=== PATIENT | male | born 1950 | race Caucasian/White ===

== ENCOUNTER 2017-09-30 15:49 | Inpatient (IN) | payer MEDICARE ==
[2017-09-30] MEDS ORDERED: SODIUM CHLORIDE 0.9% 500 ML IV STA (16:21)
[2017-09-30 16:37] LABS: Basophils # (A) 0.1 k/uL (0-0.2); Basophils % (A) 1 %; Eosinophils # (A) 0.4 k/uL (0-0.7); Eosinophils % (A) 5 %; HCT 39.3 % (39.0-53.0); Lymphocytes # (A) 1.9 k/uL (1.0-4.8); Lymphocytes % (A) 27 %; MCH 29.9 pg (25.0-35.0); MCV 90.6 fL (80.0-100.0); Monocytes # (A) 0.4 k/uL (0-1.0); Monocytes % (A) 6 %; Neutrophils # (A) 4.1 k/uL (1.3-7.7); Neutrophils % (A) 59 %; Platelet Count 151 k/uL (150-450); RBC 4.34 m/uL (4.30-5.90); RDW 14.3 % (11.5-15.5)
[2017-09-30 16:45] LABS: INR 1.1 (<1.2)
[2017-09-30 16:46] LABS: ALT 58 U/L (21-72); AST 33 U/L (17-59); Alkaline Phosphatase 53 U/L (38-126); Anion Gap 12 mmol/L; Blood Urea Nitrogen 24 mg/dL (9-20); Calcium 9.8 mg/dL (8.4-10.2); Carbon Dioxide 26 mmol/L (22-30); Chloride 100 mmol/L (98-107); Glucose 157 mg/dL (74-99); Magnesium 1.2 mg/dL (1.6-2.3); Potassium 4.1 mmol/L (3.5-5.1); Sodium 138 mmol/L (137-145); Total Bilirubin 0.5 mg/dL (0.2-1.3); Total Protein 6.1 g/dL (6.3-8.2)
--- NOTE | 2017-09-30 16:49 | XR ---
EXAMINATION TYPE: XR chest 2V DATE OF EXAM: 09/30/2017 COMPARISON: NONE HISTORY: Dizziness TECHNIQUE: Frontal and lateral views of the chest are obtained. FINDINGS: Heart and mediastinum are normal. Lungs are clear. Diaphragm is normal. There is left axil krishna pacemaker with the lead tip in the right ventricle. There are chest leads. Bony thorax is intact . IMPRESSION: No active cardiopulmonary disease.
--- NOTE | 2017-09-30 16:50 | ED ---
General Adult HPI - General Chief complaint: Syncope Stated complaint: Hypotensive Time Seen by Provider: 09/30/17 16:03 Source: patient, EMS, RN notes reviewed Mode of arrival: EMS Limitations: no limitations - History of Present Illness Initial comments: 66-year-old male with history of diabetes and nonischemic cardiomyopathy presents with near syncopal episode. Patient states he had some mild lower abdominal pain and cramping, went to the bathroom, became very lightheaded and dizzy, laid down in bed had a cold sweat, had some vision changes. Patient's blood pressure would not read at home, his took a blood sugar which was normal. They called EMS, when EMS arrived blood pressure was 80 systolic. Patient was pale and diaphoretic. Patient states that approximately one week ago his primary care physician reduced his Coreg dose secondary to low blood pressure. He states his normal blood pressure is around 100 systolic, he was in the 80 systolic time his medication was lowered. Denies any chest pain. States he has some mild shortness of breath which is at baseline for him. Denies any lower tremor swelling. Denies any vomiting, one episode of diarrhea. - Related Data Home Medications Medication Instructions Recorded Confirmed Allopurinol [Zyloprim] 300 mg PO DAILY 09/30/17 09/30/17 Ascorbic Acid [Vitamin C] 500 mg PO DAILY 09/30/17 09/30/17 Aspirin 81 mg PO DAILY 09/30/17 09/30/17 Carvedilol [Coreg] 6.25 mg PO BID 09/30/17 09/30/17 Cyanocobalamin (Vitamin B-12) 1,000 mcg PO DAILY 09/30/17 09/30/17 [Vitamin B-12] Digoxin [Digitek] 125 mcg PO DAILY 09/30/17 09/30/17 Furosemide [Lasix] 20 mg PO DAILY 09/30/17 09/30/17 Insulin Detemir [Levemir Flextouch] 38 units SQ HS 09/30/17 09/30/17 Lisinopril [Zestril] 10 mg PO BID 09/30/17 09/30/17 Lysine [l-Lysine] 500 mg PO DAILY 09/30/17 09/30/17 Multivitamins, Thera [Multivitamin 1 tab PO DAILY 09/30/17 09/30/17 (formulary)] [place]-3S/Dha/Epa/Fish Oil [Fish 1 cap PO DAILY 09/30/17 09/30/17 Oil 1,000 mg Softgel] Sildenafil Citrate [Viagra] 100 mg PO ONCE PRN 09/30/17 09/30/17 Spironolactone [Aldactone] 25 mg PO DAILY 09/30/17 09/30/17 Turmeric Root Extract [Turmeric] 500 mg PO DAILY 09/30/17 09/30/17 metFORMIN HCL [Glucophage] 1,000 mg PO BID 09/30/17 09/30/17 Allergies Allergy/AdvReac Type Severity Reaction Status Date / Time Mbfnvfm-Cye-Jno Reductase AdvReac Unknown Verified 09/30/17 16:30 Inhibitor Review of Systems ROS Statement: Those systems with pertinent positive or pertinent negative responses have been documented in the HPI. ROS Other: All systems not noted in ROS Statement are negative. Past Medical History Past Medical History: Atrial Fibrillation, Diabetes Mellitus, Osteoarthritis (OA ) Additional Past Medical History / Comment(s): CARDIOMYOPATHY, GOUT, DEFIB History of Any Multi-Drug Resistant Organisms: None Reported Past Surgical History: Heart Catheterization, Orthopedic Surgery Additional Past Surgical History / Comment(s): LEFT ANKLE, LEFT WRIST, DEFIB PLACEMENT Past Psychological History: No Psychological Hx Reported Smoking Status: Current some day smoker Past Alcohol Use History: Occasional Past Drug Use History: None Reported General Exam Limitations: no limitations General appearance: alert, in no apparent distress Head exam: Present: atraumatic, normocephalic Eye exam: Present: normal appearance, PERRL ENT exam: Present: normal exam Neck exam: Present: normal inspection. Absent: tenderness, meningismus Respiratory exam: Present: normal lung sounds bilaterally. Absent: respiratory distress Cardiovascular Exam: Present: regular rate, normal rhythm GI/Abdominal exam: Present: soft. Absent: distended, tenderness Extremities exam: Present: normal inspection, normal capillary refill. Absent: pedal edema, calf tenderness Neurological exam: Present: alert, oriented X3, CN II-XII intact. Absent: motor sensory deficit Psychiatric exam: Present: normal affect, normal mood Skin exam: Present: warm, dry, intact. Absent: cyanosis, diaphoretic Course Vital Signs 09/30/17 09/30/17 09/30/17 15:58 16:29 16:31 Temperature 97.6 F Pulse Rate 72 66 Pulse Rate [ 69 Preschool Assistant ] Respiratory 18 18 Rate Blood Pressure 99/50 94/54 O2 Sat by Pulse 96 98 Oximetry EKG Findings - EKG Comments: EKG Findings:: EKG shows sinus rhythm with first-degree AV block, T-wave inversion in leads II, III, and F aVF as well as the lateral precordial leads. No ST segment elevation or depression. Ventricular rate 65, KS interval 276, QRS 104, QTC 45, no old EKG for comparison Medical Decision Making - Medical Decision Making 66-year-old male presenting with near syncopal episode. Patient does have nonischemic cardiomyopathy, he has a defibrillator. There was no definitive relator firing. Patient is asymptomatic while in the emergency department. EKG does show T-wave abnormalities, no previous EKG for comparison. Chest x- ray shows no acute findings. White blood cell count normal, hemoglobin stable 13, magnesium is low at 1.2, this is replaced, all other electrolytes are within normal limits. Troponin negative. Patient will be observed for telemetry, magnesium replacement, and cardiology evaluation. - Lab Data Result diagrams: 09/30/17 16:08 09/30/17 16:08 Lab Results 09/30/17 09/30/17 09/30/17 Range/Units 16:08 16:08 16:08 WBC 7.0 (3.8-10.6) k/uL RBC 4.34 (4.30-5.90) m/uL Hgb 13.0 (13.0-17.5) gm/dL Hct 39.3 (39.0-53.0) % MCV 90.6 (80.0-100.0) fL MCH 29.9 (25.0-35.0) pg MCHC 33.0 (31.0-37.0) g/dL RDW 14.3 (11.5-15.5) % Plt Count 151 (150-450) k/uL Neutrophils % 59 % Lymphocytes % 27 % Monocytes % 6 % Eosinophils % 5 % Basophils % 1 % Neutrophils # 4.1 (1.3-7.7) k/uL Lymphocytes # 1.9 (1.0-4.8) k/uL Monocytes # 0.4 (0-1.0) k/uL Eosinophils # 0.4 (0-0.7) k/uL Basophils # 0.1 (0-0.2) k/uL PT (9.0-12.0) sec INR (<1.2) APTT (22.0-30.0) sec Sodium 138 (137-145) mmol/L Potassium 4.1 (3.5-5.1) mmol/L Chloride 100 (98-107) mmol/L Carbon Dioxide 26 (22-30) mmol/L Anion Gap 12 mmol/L BUN 24 H (9-20) mg/dL Creatinine 0.95 (0.66-1.25) mg/dL Est GFR (MDRD) Af Amer >60 (>60 ml/min/1.73 sqM) Est GFR (MDRD) Non-Af >60 (>60 ml/min/1.73 sqM) Glucose 157 H (74-99) mg/dL Calcium 9.8 (8.4-10.2) mg/dL Magnesium 1.2 L (1.6-2.3) mg/dL Total Bilirubin 0.5 (0.2-1.3) mg/dL AST 33 (17-59) U/L ALT 58 (21-72) U/L Alkaline Phosphatase 53 (38-126) U/L Total Creatine Kinase 194 H (55-170) U/L CK-MB (CK-2) 1.8 (0.0-2.4) ng/mL CK-MB (CK-2) Rel Index 0.9 Troponin I <0.012 (0.000-0.034) ng/mL Total Protein 6.1 L (6.3-8.2) g/dL Albumin 4.0 (3.5-5.0) g/dL Urine Color Urine Appearance (Clear) Urine pH (5.0-8.0) Ur Specific [place] (1.001-1.035) Urine Protein (Negative) Urine Glucose (UA) (Negative) Urine Ketones (Negative) Urine Blood (Negative) Urine Nitrite (Negative) Urine Bilirubin (Negative) Urine Urobilinogen (<2.0) mg/dL Ur Leukocyte Esterase (Negative) 09/30/17 09/30/17 Range/Units 16:08 17:00 WBC (3.8-10.6) k/uL RBC (4.30-5.90) m/uL Hgb (13.0-17.5) gm/dL Hct (39.0-53.0) % MCV (80.0-100.0) fL MCH (25.0-35.0) pg MCHC (31.0-37.0) g/dL RDW (11.5-15.5) % Plt Count (150-450) k/uL Neutrophils % % Lymphocytes % % Monocytes % % Eosinophils % % Basophils % % Neutrophils # (1.3-7.7) k/uL Lymphocytes # (1.0-4.8) k/uL Monocytes # (0-1.0) k/uL Eosinophils # (0-0.7) k/uL Basophils # (0-0.2) k/uL PT 11.0 (9.0-12.0) sec INR 1.1 (<1.2) APTT 21.2 L (22.0-30.0) sec Sodium (137-145) mmol/L Potassium (3.5-5.1) mmol/L Chloride (98-107) mmol/L Carbon Dioxide (22-30) mmol/L Anion Gap mmol/L BUN (9-20) mg/dL Creatinine (0.66-1.25) mg/dL Est GFR (MDRD) Af Amer (>60 ml/min/1.73 sqM) Est GFR (MDRD) Non-Af (>60 ml/min/1.73 sqM) Glucose (74-99) mg/dL Calcium (8.4-10.2) mg/dL Magnesium (1.6-2.3) mg/dL Total Bilirubin (0.2-1.3) mg/dL AST (17-59) U/L ALT (21-72) U/L Alkaline Phosphatase (38-126) U/L Total Creatine Kinase (55-170) U/L CK-MB (CK-2) (0.0-2.4) ng/mL CK-MB (CK-2) Rel Index Troponin I (0.000-0.034) ng/mL Total Protein (6.3-8.2) g/dL Albumin (3.5-5.0) g/dL Urine Color Yellow Urine Appearance Clear (Clear) Urine pH 5.0 (5.0-8.0) Ur Specific [place] 1.010 (1.001-1.035) Urine Protein Trace H (Negative) Urine Glucose (UA) Negative (Negative) Urine Ketones Negative (Negative) Urine Blood Negative (Negative) Urine Nitrite Negative (Negative) Urine Bilirubin Negative (Negative) Urine Urobilinogen <2.0 (<2.0) mg/dL Ur Leukocyte Esterase Negative (Negative) Disposition Clinical Impression: Syncope, Hypomagnesemia, Nonischemic cardiomyopathy Disposition: ADMITTED IP TO THIS [facility] Condition: Stable Referrals: Km Hawthorne DO [Primary Care Provider] - 1-2 days Decision to Admit Reason: Admit from EC Decision Date: 09/30/17 Decision Time: 17:41
[2017-09-30 16:51] LABS: Partial Thromboplastin Time 21.2 sec (22.0-30.0)
[2017-09-30 16:58] LABS: Creatine Kinase 194 U/L (55-170)
[2017-09-30 17:09] LABS: Appearance,Urine Clear (Clear); Bilirubin,Urine Negative (Negative); Blood,Urine Negative (Negative); Color,Urine Yellow; Glucose,Urine (UA) Negative (Negative); Ketones,Urine Negative (Negative); Leukocyte Esterase,Urine Negative (Negative); Nitrite,Urine Negative (Negative); Protein,Urine Trace (Negative); Urobilinogen,Urine <2.0 mg/dL (<2.0)
[2017-09-30 17:11] LABS: Creatine Kinase MB 1.8 ng/mL (0.0-2.4); Troponin I <0.012 ng/mL (0.000-0.034)
[2017-09-30] MEDS ORDERED: ONDANSETRON 4 MG/2 ML VIAL IVP PRN (17:42)
[2017-09-30] MEDS ORDERED: NALOXONE 0.4 MG/ML 1 ML VIAL IV PRN (17:42)
[2017-09-30] MEDS ORDERED: ACETAMINOPHEN TAB 325 MG TAB PO PRN (17:42)
[2017-09-30] MEDS ORDERED: SODIUM CHLORIDE 0.9% 1,000 ML IV SCH (17:45)
[2017-09-30] MEDS: MAGNESIUM SULFATE-D5W PMX 1 GM in DEXTROSE/WATER 1 100ML.BAG IVPB SCH ×2 (18:35→23:37)
[2017-09-30] MEDS ORDERED: INSULIN DETEMIR 100 UNIT/ML 10 ML VIAL SQ SCH (22:00)
[2017-09-30 22:44] VITALS: BMI 26.2
[2017-09-30 23:49] LABS: Glucose,Whole Blood 253 mg/dL (75-99)
[2017-09-30] MEDS: ALLOPURINOL 300 MG TAB PO SCH (23:51)
[2017-09-30] MEDS: metFORMIN 500 MG TAB PO SCH (23:51)
[2017-09-30] MEDS: CARVEDILOL 12.5 MG TAB PO SCH (23:51)
[2017-09-30] MEDS: LISINOPRIL 10 MG TAB PO SCH (23:51)
[2017-10-01 06:17] LABS: Glucose,Whole Blood 108 mg/dL (75-99)
[2017-10-01 06:30] LABS: Basophils % (A) 1 %; Eosinophils # (A) 0.3 k/uL (0-0.7); Eosinophils % (A) 5 %; HCT 38.7 % (39.0-53.0); HGB 12.7 gm/dL (13.0-17.5); Lymphocytes # (A) 2.5 k/uL (1.0-4.8); Lymphocytes % (A) 34 %; MCH 29.5 pg (25.0-35.0); MCHC 32.7 g/dL (31.0-37.0); MCV 90.1 fL (80.0-100.0); Monocytes # (A) 0.5 k/uL (0-1.0); Monocytes % (A) 6 %; Neutrophils % (A) 53 %; Platelet Count 145 k/uL (150-450); RBC 4.29 m/uL (4.30-5.90); RDW 14.6 % (11.5-15.5); WBC 7.4 k/uL (3.8-10.6)
[2017-10-01] MEDS: INSULIN ASPART 100 UNIT/ML 1 ML 10 ML VIAL SQ SCH ×2 (06:31→12:18)
[2017-10-01 06:41] LABS: ALT 58 U/L (21-72); AST 29 U/L (17-59); Albumin 4.1 g/dL (3.5-5.0); Alkaline Phosphatase 49 U/L (38-126); Anion Gap 10 mmol/L; Blood Urea Nitrogen 24 mg/dL (9-20); Carbon Dioxide 30 mmol/L (22-30); Chloride 100 mmol/L (98-107); Glucose 110 mg/dL (74-99); Magnesium 1.6 mg/dL (1.6-2.3); Sodium 140 mmol/L (137-145); Total Bilirubin 0.7 mg/dL (0.2-1.3); Total Protein 6.2 g/dL (6.3-8.2)
[2017-10-01 07:43] VITALS: RESP 16
[2017-10-01] MEDS ORDERED: ASPIRIN 81 MG PO SCH (09:00)
[2017-10-01] MEDS ORDERED: SPIRONOLACTONE 25 MG TAB PO SCH (09:00)
[2017-10-01] MEDS ORDERED: FUROSEMIDE 20 MG TAB PO SCH (09:00)
[2017-10-01] MEDS ORDERED: DIGOXIN 125 MCG TAB PO SCH (09:00)
[2017-10-01] MEDS: ALLOPURINOL 300 MG TAB PO SCH (09:39)
[2017-10-01] MEDS: CARVEDILOL 12.5 MG TAB PO SCH (09:40)
[2017-10-01] MEDS: metFORMIN 500 MG TAB PO SCH (09:44)
--- NOTE | 2017-10-01 09:44 | P.CRDCN ---
History of Present Illness Consult date: 10/01/17 Requesting physician: Beverley Gay Consult reason: sycope Chief complaint: Near syncope History of present illness: This is a 66-year-old gentleman with history of dilated cardiomyopathy status post AICD, diabetes, hyperlipidemia, who follows with Dr. Zoraida Ontiveros at [facility]. Patient does occasionally smoke, rarely drinks alcohol, but states he used to drink alcohol heavily past. He presents to the hospital with a near syncopal episode. According to the patient, he became dizzy, but clearly went to the bathroom where he had a loose bowel movement, became extremely diaphoretic and his dizziness worsened. He went to lie down on his bed and EMS was called. On EMS arrival the patient's blood pressure was 85/45, heart rate in the 60s. According to the patient, recently his blood pressure has been running quite low, his primary care physician recently decreased his Coreg in half. She was given a 250 mL fluid bolus in the EMS as well. EKG on arrival here showed a normal sinus rhythm with T-wave inversion in the anterior lateral leads. Chest2 x-ray did not reveal any acute cardiopulmonary process. Blood pressure on arrival here 99/50, heart rate in the 70s, 96% on room air. Blood pressure this morning 103/58, heart rate in the 70s. Laboratory data was reviewed,, WBC 7.4, hemoglobin 12.7, platelet count 145. D-dimer 0.35. Sodium 140, potassium 5.0, BUN 24, creatinine 1.0. Magnesium level I.2 on admission, 1.6 this morning. At the time of my examination this morning, patient feels much better, he states he's been up a couple of times and has had further symptoms of dizziness. Past Medical History Past Medical History: Atrial Fibrillation, Diabetes Mellitus, Osteoarthritis (OA ) Additional Past Medical History / Comment(s): CARDIOMYOPATHY, GOUT, DEFIB History of Any Multi-Drug Resistant Organisms: None Reported Past Surgical History: Heart Catheterization, Orthopedic Surgery Additional Past Surgical History / Comment(s): LEFT ANKLE, LEFT WRIST, DEFIB PLACEMENT Past Psychological History: No Psychological Hx Reported Smoking Status: Light tobacco smoker Past Alcohol Use History: Occasional Past Drug Use History: None Reported Medications and Allergies Home Medications Medication Instructions Recorded Confirmed Type Allopurinol [Zyloprim] 300 mg PO DAILY 09/30/17 09/30/17 History Ascorbic Acid [Vitamin C] 500 mg PO DAILY 09/30/17 09/30/17 History Aspirin 81 mg PO DAILY 09/30/17 09/30/17 History Carvedilol [Coreg] 6.25 mg PO BID 09/30/17 09/30/17 History Cyanocobalamin (Vitamin B-12) 1,000 mcg PO DAILY 09/30/17 09/30/17 History [Vitamin B-12] Digoxin [Digitek] 125 mcg PO DAILY 09/30/17 09/30/17 History Furosemide [Lasix] 20 mg PO DAILY 09/30/17 09/30/17 History Insulin Detemir [Levemir Flextouch] 38 units SQ HS 09/30/17 09/30/17 History Lisinopril [Zestril] 10 mg PO BID 09/30/17 09/30/17 History Lysine [l-Lysine] 500 mg PO DAILY 09/30/17 09/30/17 History Multivitamins, Thera [Multivitamin 1 tab PO DAILY 09/30/17 09/30/17 History (formulary)] [place]-3S/Dha/Epa/Fish Oil [Fish 1 cap PO DAILY 09/30/17 09/30/17 History Oil 1,000 mg Softgel] Sildenafil Citrate [Viagra] 100 mg PO ONCE PRN 09/30/17 09/30/17 History Spironolactone [Aldactone] 25 mg PO DAILY 09/30/17 09/30/17 History Turmeric Root Extract [Turmeric] 500 mg PO DAILY 09/30/17 09/30/17 History metFORMIN HCL [Glucophage] 1,000 mg PO BID 09/30/17 09/30/17 History Allergies Allergy/AdvReac Type Severity Reaction Status Date / Time Vcvmslo-Rsa-Vsa Reductase AdvReac Unknown Verified 09/30/17 16:30 Inhibitor Physical Exam Vitals: Vital Signs Temp Pulse Pulse Pulse Resp BP BP 10/01/17 08:00 72 78 16 10/01/17 07:25 96.6 F L 78 16 103/58 10/01/17 04:00 97.0 F L 66 18 98/53 10/01/17 00:00 96.4 F L 71 20 102/55 09/30/17 19:06 98.6 F 72 16 99/61 09/30/17 18:35 97.0 F L 75 18 101/60 09/30/17 16:31 69 09/30/17 16:29 66 18 94/54 09/30/17 15:58 97.6 F 72 18 99/50 Pulse Ox 10/01/17 08:00 10/01/17 07:25 96 10/01/17 04:00 96 10/01/17 00:00 96 09/30/17 19:06 96 09/30/17 18:35 97 09/30/17 16:31 09/30/17 16:29 98 09/30/17 15:58 96 Intake and Output 09/30/17 10/01/17 10/01/17 22:59 06:59 14:59 Intake Total 280 360 354 Output Total 1 Balance 280 359 354 Intake: IV 200 Invasive Line 1 200 Intake, IV Titration 40 160 Amount Sodium Chloride 0.9% 1, 40 160 000 ml @ 20 mls/hr IV . Q24H [facility] Rx#:[id number] Oral 240 354 Output: Urine 1 Other: Voiding Method Toilet Toilet # Voids 1 Weight 97.5 kg 94.9 kg PHYSICAL EXAMINATION: HEENT: Head is atraumatic, normocephalic. Pupils equal, round. Neck is supple. There is no elevated jugular venous pressure. HEART EXAMINATION: Heart S1, S2 normal. No murmur or gallop heard. CHEST EXAMINATION: Lungs are clear to auscultation and precussion. No chest wall tenderness is noted on palpation or with deep breathing. ABDOMEN: Soft, nontender. Bowel sounds are heard. No organomegaly noted. EXTREMITIES: 2+ peripheral pulses with no evidence of peripheral edema and no calf tenderness noted. NEUROLOGIC patient is awake, alert and oriented -3. . Results 10/01/17 05:48 10/01/17 05:48 Cardiac Enzymes 09/30/17 09/30/17 10/01/17 Range/Units 16:08 16:08 05:48 AST 33 29 (17-59) U/L CK-MB (CK-2) 1.8 (0.0-2.4) ng/mL Troponin I <0.012 (0.000-0.034) ng/mL Coagulation 09/30/17 Range/Units 16:08 PT 11.0 (9.0-12.0) sec APTT 21.2 L (22.0-30.0) sec CBC 09/30/17 10/01/17 Range/Units 16:08 05:48 WBC 7.0 7.4 (3.8-10.6) k/uL RBC 4.34 4.29 L (4.30-5.90) m/uL Hgb 13.0 12.7 L (13.0-17.5) gm/dL Hct 39.3 38.7 L (39.0-53.0) % Plt Count 151 145 L (150-450) k/uL Comprehensive Metabolic Panel 09/30/17 10/01/17 Range/Units 16:08 05:48 Sodium 138 140 (137-145) mmol/L Potassium 4.1 5.0 (3.5-5.1) mmol/L Chloride 100 100 (98-107) mmol/L Carbon Dioxide 26 30 (22-30) mmol/L BUN 24 H 24 H (9-20) mg/dL Creatinine 0.95 1.00 (0.66-1.25) mg/dL Glucose 157 H 110 H (74-99) mg/dL Calcium 9.8 10.0 (8.4-10.2) mg/dL AST 33 29 (17-59) U/L ALT 58 58 (21-72) U/L Alkaline Phosphatase 53 49 (38-126) U/L Total Protein 6.1 L 6.2 L (6.3-8.2) g/dL Albumin 4.0 4.1 (3.5-5.0) g/dL Current Medications Generic Name Dose Route Start Last Admin Trade Name Freq PRN Reason Stop Dose Admin Acetaminophen 650 mg 09/30/17 17:42 Tylenol Tab PO Q6HR PRN Mild Pain or Fever > 100.5 Allopurinol 300 mg 09/30/17 22:00 09/30/17 23:51 Zyloprim PO 300 mg DAILY MECCA Administration Aspirin 81 mg 10/01/17 09:00 Aspirin PO DAILY MECCA Carvedilol 6.25 mg 09/30/17 22:00 09/30/17 23:51 Coreg PO 6.25 mg BID MECCA Administration Digoxin 125 mcg 10/01/17 09:00 Lanoxin PO DAILY MECCA Furosemide 20 mg 10/01/17 09:00 Lasix PO DAILY MECCA Sodium Chloride 1,000 mls @ 20 mls/hr 09/30/17 17:45 09/30/17 18:35 Saline 0.9% IV 20 mls/hr .Q24H MECCA Administration Insulin Aspart 0 unit 10/01/17 07:30 10/01/17 06:31 Novolog SQ Not Given ACHS MECCA Protocol Insulin Detemir 38 unit 09/30/17 22:00 10/01/17 00:00 Levemir SQ 38 unit HS MECAC Administration Lisinopril 10 mg 09/30/17 22:00 09/30/17 23:51 Zestril PO 10 mg BID MECCA Administration Metformin HCl 1,000 mg 09/30/17 22:00 09/30/17 23:51 Glucophage PO 1,000 mg BID MECCA Administration Naloxone HCl 0.2 mg 09/30/17 17:42 Narcan IV Q2M PRN Opioid Reversal Ondansetron HCl 4 mg 09/30/17 17:42 Zofran IVP Q8HR PRN Nausea And Vomiting Spironolactone 12.5 mg 10/01/17 09:00 Aldactone PO DAILY MECCA Intake and Output 09/30/17 10/01/17 10/01/17 22:59 06:59 14:59 Intake Total 280 360 354 Output Total 1 Balance 280 359 354 Intake: IV 200 Invasive Line 1 200 Intake, IV Titration 40 160 Amount Sodium Chloride 0.9% 1, 40 160 000 ml @ 20 mls/hr IV . Q24H ME[facility] Rx#:[id number] Oral 240 354 Output: Urine 1 Other: Voiding Method Toilet Toilet # Voids 1 Weight 97.5 kg 94.9 kg 10/01/17 05:48 10/01/17 05:48 EKG Interpretations (text) EKG shows normal sinus rhythm with first-degree AV block and inferior lateral T- wave inversion Assessment and Plan Plan: Assessment and plan #1 symptoms of dizziness, diaphoresis and near syncope. Could be secondary to hypotension. Blood pressure on EMS arrival 80/50. #2 nonischemic cardiomyopathy with prior AICD implantation #3 nicotine dependence #4 hypomagnesemia #5 diabetes #6 hyperlipidemia Plan We will obtain records from [facility]. In an echocardiogram with Doppler study. Check orthostatic blood pressure and heart rate every shift. Replace magnesium. Decrease lisinopril to 10 mg daily. Further recommendations to follow. DNP note has been reviewed, I agree with a documented findings and plan of care. Patient was seen and examined.
[2017-10-01] MEDS: LISINOPRIL 10 MG TAB PO SCH (09:59)
[2017-10-01] MEDS ORDERED: LISINOPRIL 10 MG TAB PO SCH (10:00)
--- NOTE | 2017-10-01 10:28 | ECHOF ---
Referral Reason:Cardiomyopathy MEASUREMENTS -------- HEIGHT: 162.6 cm WEIGHT: 94.8 kg BP: 102/55 IVSd: 1.3 cm (0.6 - 1.1) LVIDd: 6.0 cm (3.9 - 5.3) LVPWd: 1.2 cm (0.6 - 1.1) IVSs: 1.9 cm LVIDs: 5.3 cm LVPWs: 1.1 cm LAESV Index (A-L): 26.83 ml/m Ao Diam: 3.9 cm (2.0 - 3.7) AV Cusp: 1.5 cm (1.5 - 2.6) LA Diam: 2.7 cm (2.7 - 3.8) MV EXCURSION: 17.701 mm (> 18.000) MV EF SLOPE: 84 mm/s (70 - 150) EPSS: 1.7 cm MV E Alvin: 0.92 m/s MV DecT: 131 ms MV A Alvin: 0.77 m/s MV E/A Ratio: 1.20 RAP: 5.00 mmHg RVSP: 16.90 mmHg FINDINGS -------- Sinus rhythm. AICD This was a technically good study. The left ventricle is moderately dilated. There is borderline concentric left ventricular hypertrop hy. There is severe global hypokinesis of LV . Overall left ventricular systolic function is juana rely impaired with, an EF between 20 - 25 %. Known cardiomyopathy Inferior Hypokinesis The right ventricle is normal in size and function. The left atrium is normal in size. The right atrium is normal in size. Aortic valve is trileaflet and is mildly thickened. Mild mitral regurgitation is present. Trace tricuspid regurgitation present. The right ventricular systolic pressure, as measured by Dopp ler, is 16.90mmHg. Pulmonic valve appears structurally normal. The aortic root is mildy dilated. Normal inferior vena cava with normal inspiratory collapse consistent with estimated right atrial pre ssure of 5 mmHg. The pericardium is normal. CONCLUSIONS -------- 1. Sinus rhythm. 2. AICD 3. This was a technically good study. 4. The left ventricle is moderately dilated. 5. There is borderline concentric left ventricular hypertrophy. 6. There is severe global hypokinesis of LV . 7. Overall left ventricular systolic function is severely impaired with, an EF between 20 - 25 %. 8. Known cardiomyopathy 9. Inferior Hypokinesis 10. The right ventricle is normal in size and function. 11. The left atrium is normal in size. 12. The right atrium is normal in size. 13. Aortic valve is trileaflet and is mildly thickened. 14. Mild mitral regurgitation is present. 15. Trace tricuspid regurgitation present. 16. The right ventricular systolic pressure, as measured by Doppler, is 16.90mmHg. 17. Pulmonic valve appears structurally normal. 18. The aortic root is mildy dilated. 19. Normal inferior vena cava with normal inspiratory collapse consistent with estimated right atrial pressure of 5 mmHg. 20. The pericardium is normal. POWDER WORKER: Raven Man RDCS
[2017-10-01] MEDS: MAGNESIUM SULFATE-D5W PMX 1 GM in DEXTROSE/WATER 1 100ML.BAG IVPB SCH ×2 (10:50→12:18)
[2017-10-01 11:02] VITALS: PULSE 74; TEMP 97.1
[2017-10-01 11:10] VITALS: BP 109/61
[2017-10-01 11:39] LABS: Glucose,Whole Blood 155 mg/dL (75-99)
--- NOTE | 2017-10-01 12:35 | P.HPIM ---
History of Present Illness This is a 66-year-old gentleman with history of dilated cardiomyopathy status post AICD, diabetes, hyperlipidemia, who follows with Dr. Zoraida Ontiveros at [facility]. Patient does occasionally smoke, rarely drinks alcohol, but states he used to drink alcohol heavily past. He presents to the hospital with a near syncopal episode. According to the patient, he became dizzy, but clearly went to the bathroom where he had a loose bowel movement, became extremely diaphoretic and his dizziness worsened. He went to lie down on his bed and EMS was called. On EMS arrival the patient's blood pressure was 85/45, heart rate in the 60s. According to the patient, recently his blood pressure has been running quite low, his primary care physician recently decreased his Coreg in half. She was given a 250 mL fluid bolus in the EMS as well. EKG on arrival here showed a normal sinus rhythm with T-wave inversion in the anterior lateral leads. Chest2 x-ray did not reveal any acute cardiopulmonary process. Blood pressure on arrival here 99/50, heart rate in the 70s, 96% on room air. His blood pressures initially improved with IV fluids and lisinopril dose was increased from 10 twice a day to 10 mg daily. If patient is cleared from cardiology perspective patient will be discharged patient is euvolemic at this point of time Review of Systems REVIEW OF SYSTEMS: CONSTITUTIONAL: No fever, no malaise, no fatigue. HEENT: No recent visual problems or hearing problems. Denied any sore throat. CARDIOVASCULAR: No chest pain, orthopnea, PND, no palpitations, no syncope. PULMONARY: No shortness of breath, no cough, no hemoptysis. GASTROINTESTINAL: No diarrhea, no nausea, no vomiting, no abdominal pain. Normoactive bowel sounds. NEUROLOGICAL: No headaches, no weakness, no numbness. HEMATOLOGICAL: Denies any bleeding or petechiae. GENITOURINARY: Denies any burning micturition, frequency, or urgency. MUSCULOSKELETAL/RHEUMATOLOGICAL: Denies any joint pain, swelling, or any muscle pain. ENDOCRINE: Denies any polyuria or polydipsia. The rest of the 14-point review of systems is negative. Past Medical History Past Medical History: Atrial Fibrillation, Diabetes Mellitus, Osteoarthritis (OA ) Additional Past Medical History / Comment(s): CARDIOMYOPATHY, GOUT, DEFIB History of Any Multi-Drug Resistant Organisms: None Reported Past Surgical History: Heart Catheterization, Orthopedic Surgery Additional Past Surgical History / Comment(s): LEFT ANKLE, LEFT WRIST, DEFIB PLACEMENT Past Psychological History: No Psychological Hx Reported Smoking Status: Light tobacco smoker Past Alcohol Use History: Occasional Past Drug Use History: None Reported Medications and Allergies Home Medications Medication Instructions Recorded Confirmed Type Allopurinol [Zyloprim] 300 mg PO DAILY 09/30/17 09/30/17 History Ascorbic Acid [Vitamin C] 500 mg PO DAILY 09/30/17 09/30/17 History Aspirin 81 mg PO DAILY 09/30/17 09/30/17 History Carvedilol [Coreg] 6.25 mg PO BID 09/30/17 09/30/17 History Cyanocobalamin (Vitamin B-12) 1,000 mcg PO DAILY 09/30/17 09/30/17 History [Vitamin B-12] Digoxin [Digitek] 125 mcg PO DAILY 09/30/17 09/30/17 History Furosemide [Lasix] 20 mg PO DAILY 09/30/17 09/30/17 History Insulin Detemir [Levemir Flextouch] 38 units SQ HS 09/30/17 09/30/17 History Lysine [l-Lysine] 500 mg PO DAILY 09/30/17 09/30/17 History Multivitamins, Thera [Multivitamin 1 tab PO DAILY 09/30/17 09/30/17 History (formulary)] [place]-3S/Dha/Epa/Fish Oil [Fish 1 cap PO DAILY 09/30/17 09/30/17 History Oil 1,000 mg Softgel] Sildenafil Citrate [Viagra] 100 mg PO ONCE PRN 09/30/17 09/30/17 History Spironolactone [Aldactone] 25 mg PO DAILY 09/30/17 09/30/17 History Turmeric Root Extract [Turmeric] 500 mg PO DAILY 09/30/17 09/30/17 History metFORMIN HCL [Glucophage] 1,000 mg PO BID 09/30/17 09/30/17 History Lisinopril [Zestril] 10 mg PO DAILY #0 tab 10/01/17 Rx Allergies Allergy/AdvReac Type Severity Reaction Status Date / Time Bdmjoaj-Hko-Ooa Reductase AdvReac Unknown Verified 09/30/17 16:30 Inhibitor Physical Exam Vitals: Vital Signs Temp Pulse Pulse Pulse Resp BP BP 10/01/17 11:13 74 16 10/01/17 11:00 97.1 F L 74 16 10/01/17 09:35 105/66 10/01/17 08:00 72 78 16 10/01/17 07:25 96.6 F L 78 16 10/01/17 04:00 97.0 F L 66 18 10/01/17 00:00 96.4 F L 71 20 09/30/17 19:06 98.6 F 72 16 09/30/17 18:35 97.0 F L 75 18 101/60 09/30/17 16:31 69 09/30/17 16:29 66 18 94/54 09/30/17 15:58 97.6 F 72 18 99/50 BP BP BP Pulse Ox 10/01/17 11:13 10/01/17 11:00 109/61 97 10/01/17 09:35 110/62 98/48 10/01/17 08:00 10/01/17 07:25 103/58 96 10/01/17 04:00 98/53 96 10/01/17 00:00 102/55 96 09/30/17 19:06 99/61 96 09/30/17 18:35 97 09/30/17 16:31 09/30/17 16:29 98 09/30/17 15:58 96 Intake and Output 09/30/17 10/01/17 10/01/17 22:59 06:59 14:59 Intake Total 280 360 354 Output Total 1 Balance 280 359 354 Intake: IV 200 Invasive Line 1 200 Intake, IV Titration 40 160 Amount Sodium Chloride 0.9% 1, 40 160 000 ml @ 20 mls/hr IV . Q24H [facility] Rx#:[id number] Oral 240 354 Output: Urine 1 Other: Voiding Method Toilet Toilet # Voids 1 Weight 97.5 kg 94.9 kg PHYSICAL EXAMINATION: GENERAL: The patient is alert and oriented x3, not in any acute distress. Well developed, well nourished. HEENT: Pupils are round and equally reacting to light. EOMI. No scleral icterus. No conjunctival pallor. Normocephalic, atraumatic. No pharyngeal erythema. No thyromegaly. CARDIOVASCULAR: S1 and S2 present. No murmurs, rubs, or gallops. PULMONARY: Chest is clear to auscultation, no wheezing or crackles. ABDOMEN: Soft, nontender, nondistended, normoactive bowel sounds. No palpable organomegaly. MUSCULOSKELETAL: No joint swelling or deformity. EXTREMITIES: No cyanosis, clubbing, or pedal edema. NEUROLOGICAL: Gross neurological examination did not reveal any focal deficits. SKIN: No rashes. Results CBC & Chem 7: 10/01/17 05:48 10/01/17 05:48 Labs: Abnormal Lab Results - Last 24 Hours (Table) 09/30/17 09/30/17 09/30/17 Range/Units 16:08 16:08 16:08 RBC (4.30-5.90) m/uL Hgb (13.0-17.5) gm/dL Hct (39.0-53.0) % Plt Count (150-450) k/uL APTT 21.2 L (22.0-30.0) sec BUN 24 H (9-20) mg/dL Glucose 157 H (74-99) mg/dL POC Glucose (mg/dL) (75-99) mg/dL Magnesium 1.2 L (1.6-2.3) mg/dL Total Creatine Kinase 194 H (55-170) U/L Total Protein 6.1 L (6.3-8.2) g/dL Urine Protein (Negative) 09/30/17 09/30/17 10/01/17 Range/Units 17:00 23:44 05:48 RBC 4.29 L (4.30-5.90) m/uL Hgb 12.7 L (13.0-17.5) gm/dL Hct 38.7 L (39.0-53.0) % Plt Count 145 L (150-450) k/uL APTT (22.0-30.0) sec BUN (9-20) mg/dL Glucose (74-99) mg/dL POC Glucose (mg/dL) 253 H (75-99) mg/dL Magnesium (1.6-2.3) mg/dL Total Creatine Kinase (55-170) U/L Total Protein (6.3-8.2) g/dL Urine Protein Trace H (Negative) 10/01/17 10/01/17 10/01/17 Range/Units 05:48 06:15 11:35 RBC (4.30-5.90) m/uL Hgb (13.0-17.5) gm/dL Hct (39.0-53.0) % Plt Count (150-450) k/uL APTT (22.0-30.0) sec BUN 24 H (9-20) mg/dL Glucose 110 H (74-99) mg/dL POC Glucose (mg/dL) 108 H 155 H (75-99) mg/dL Magnesium (1.6-2.3) mg/dL Total Creatine Kinase (55-170) U/L Total Protein 6.2 L (6.3-8.2) g/dL Urine Protein (Negative) Thrombosis Risk Factor Assmnt - Choose All That Apply Any of the Below Risk Factors Present?: No Each Risk Factor Represents 2 Points: Age 61-74 years Thrombosis Risk Factor Assessment Total Risk Factor Score: 2 Thrombosis Risk Factor Assessment Level: Low Risk Assessment and Plan Plan: -Dizziness, near syncopal episode: Secondary to hypotension lisinopril dose was decreased. -History of congestive heart failure severe cardiomyopathy chronic systolic dysfunction without any acute exacerbation patient is euvolemic. - nonischemic myopathy with an AICD -Type 2 diabetes mellitus: Patient will be resumed on his home regimen along with sliding scale. -Atrial fibrillation rate controlled at this time continue with home regimen. If cleared by cardiology patient will be discharged today.
--- NOTE | 2017-10-01 12:36 | P.DS ---
Providers Date of admission: 09/30/17 17:42 Attending physician: Beverley Gay Consults: 09/30/17 17:43 Consult Physician Urgent Consulting Provider: Fernando Orellana Consult Reason/Comments: Nonischemic cardiomyopathy, near syncope Do you want consulting provider notified?: Yes Primary care physician: [facility] Course: Please refer to HPI Patient Condition at Discharge: Stable Plan - Discharge Summary Discharge Rx Participant: No New Discharge Prescriptions: New Lisinopril [Zestril] 10 mg PO DAILY #0 tab Continue Turmeric Root Extract [Turmeric] 500 mg PO DAILY [place]-3S/Dha/Epa/Fish Oil [Fish Oil 1,000 mg Softgel] 1 cap PO DAILY Ascorbic Acid [Vitamin C] 500 mg PO DAILY metFORMIN HCL [Glucophage] 1,000 mg PO BID Multivitamins, Thera [Multivitamin (formulary)] 1 tab PO DAILY Insulin Detemir [Levemir Flextouch] 38 units SQ HS Aspirin 81 mg PO DAILY Carvedilol [Coreg] 6.25 mg PO BID Sildenafil Citrate [Viagra] 100 mg PO ONCE PRN PRN Reason: E.D. Furosemide [Lasix] 20 mg PO DAILY Digoxin [Digitek] 125 mcg PO DAILY Spironolactone [Aldactone] 25 mg PO DAILY Allopurinol [Zyloprim] 300 mg PO DAILY Lysine [l-Lysine] 500 mg PO DAILY Cyanocobalamin (Vitamin B-12) [Vitamin B-12] 1,000 mcg PO DAILY Discontinued Lisinopril [Zestril] 10 mg PO BID Discharge Medication List Allopurinol [Zyloprim] 300 mg PO DAILY 09/30/17 [History] Ascorbic Acid [Vitamin C] 500 mg PO DAILY 09/30/17 [History] Aspirin 81 mg PO DAILY 09/30/17 [History] Carvedilol [Coreg] 6.25 mg PO BID 09/30/17 [History] Cyanocobalamin (Vitamin B-12) [Vitamin B-12] 1,000 mcg PO DAILY 09/30/17 [ History] Digoxin [Digitek] 125 mcg PO DAILY 09/30/17 [History] Furosemide [Lasix] 20 mg PO DAILY 09/30/17 [History] Insulin Detemir [Levemir Flextouch] 38 units SQ HS 09/30/17 [History] Lysine [l-Lysine] 500 mg PO DAILY 09/30/17 [History] Multivitamins, Thera [Multivitamin (formulary)] 1 tab PO DAILY 09/30/17 [History ] [place]-3S/Dha/Epa/Fish Oil [Fish Oil 1,000 mg Softgel] 1 cap PO DAILY 09/30/17 [ History] Sildenafil Citrate [Viagra] 100 mg PO ONCE PRN 09/30/17 [History] Spironolactone [Aldactone] 25 mg PO DAILY 09/30/17 [History] Turmeric Root Extract [Turmeric] 500 mg PO DAILY 09/30/17 [History] metFORMIN HCL [Glucophage] 1,000 mg PO BID 09/30/17 [History] Lisinopril [Zestril] 10 mg PO DAILY #0 tab 10/01/17 [Rx] Follow up Appointment(s)/Referral(s): Zoraida Ontiveros MD [REFERRING] - [address] Km Hawthorne DO [Primary Care Provider] - 10/04/17 2:00 pm (Wednesday) Patient Instructions/Handouts: Syncope (DC) Discharge Disposition: HOME SELF-CARE
== END 2017-10-01 15:02 | disposition home or self-care (01) | DRG 312 ==
LOC: EC 15:49 → 6SEL 17:42
PROVIDERS: ADMIT Hospitalist; ATTEND Hospitalist
DX: R55 Syncope and collapse (principal); I95.9 Hypotension, unspecified; I42.0 Dilated cardiomyopathy; I50.22 Chronic systolic (congestive) heart failure; I48.91 Unspecified atrial fibrillation; E83.42 Hypomagnesemia; E11.9 Type 2 diabetes mellitus without complications; F17.200 Nicotine dependence, unspecified, uncomplicated; M19.90 Unspecified osteoarthritis, unspecified site; M10.9 Gout, unspecified; E78.5 Hyperlipidemia, unspecified; I44.0 Atrioventricular block, first degree; Z95.810 Presence of automatic (implantable) cardiac defibrillator; Z88.8 Allergy status to other drugs, medicaments and biological substances; Z79.899 Other long term (current) drug therapy; Z79.4 Long term (current) use of insulin; Z79.82 Long term (current) use of aspirin
CPT/HCPCS: 36415; 71046; 80053; 81003; 82550; 82553; 83735; 84484; 85025; 85379; 85610; 85730; 93005; 93306; 96361; 96365; 99285

== ENCOUNTER 2018-06-20 23:21 | Observation (INO) | payer MEDICARE ==
[2018-06-20] MEDS ORDERED: NITROGLYCERIN SL TABS 0.4 MG TAB SUBLINGUAL PRN (23:35)
[2018-06-20] MEDS ORDERED: MORPHINE SULFATE 4 MG/ML SYRINGE IV PRN (23:35)
--- NOTE | 2018-06-20 23:35 | ED ---
Chest Pain HPI - General Stated Complaint: SOB Time Seen by Provider: 06/20/18 23:30 Source: patient, RN notes reviewed, old records reviewed Mode of arrival: ambulatory Limitations: no limitations - History of Present Illness Initial Comments: This is a 67-year-old male the ER for evaluation. Patient comes in for evaluation of chest pain shortness of breath history of A. fib history of heart disease dilated cardiomyopathy. No recent travel history no sick contacts, patient states he has had prior heart catheterization which did show some arterial sclerosis but no stents placed. -: hour(s) Onset: during rest Pain Location: substernal, left chest Pain Radiation: LUE Severity: moderate Severity scale (1-10): 4 Quality: tightness, heaviness Consistency: constant Improves With: nothing Worsens With: nothing Treatments Prior to Arrival: none - Related Data Home Medications Medication Instructions Recorded Confirmed Allopurinol [Zyloprim] 300 mg PO DAILY 09/30/17 06/20/18 Ascorbic Acid [Vitamin C] 500 mg PO DAILY 09/30/17 06/20/18 Aspirin 81 mg PO DAILY 09/30/17 06/20/18 Cyanocobalamin (Vitamin B-12) 1,000 mcg PO DAILY 09/30/17 06/20/18 [Vitamin B-12] Digoxin [Digitek] 125 mcg PO DAILY 09/30/17 06/20/18 Furosemide [Lasix] 20 mg PO BID 09/30/17 06/20/18 Insulin Detemir [Levemir Flextouch] 40 units SQ HS 09/30/17 06/20/18 Lysine [l-Lysine] 500 mg PO DAILY 09/30/17 06/20/18 Multivitamins, Thera [Multivitamin 1 tab PO DAILY 09/30/17 06/20/18 (formulary)] [place]-3S/Dha/Epa/Fish Oil [Fish 1 cap PO DAILY 09/30/17 06/20/18 Oil 1,000 mg Softgel] Sildenafil Citrate [Viagra] 100 mg PO ONCE PRN 09/30/17 06/20/18 Spironolactone [Aldactone] 25 mg PO DAILY 09/30/17 06/20/18 Carvedilol [Coreg] 6.25 mg PO BID 06/20/18 06/20/18 Ginkgo Biloba 500 mg PO DAILY 06/20/18 06/20/18 Lisinopril [Zestril] 5 mg PO BID 06/20/18 06/20/18 [place] 500 mg PO DAILY 06/20/18 06/20/18 Vitamin D3(Unknown Dose) 1 tab PO DAILY 06/20/18 06/20/18 metFORMIN HCL [Glucophage] 1,000 mg PO BID 06/20/18 06/20/18 Allergies Allergy/AdvReac Type Severity Reaction Status Date / Time Mcbzgmb-Byw-Etb Reductase AdvReac MUSCLE PAIN Verified 06/20/18 23:44 Inhibitor Review of Systems ROS Statement: Those systems with pertinent positive or pertinent negative responses have been documented in the HPI. ROS Other: All systems not noted in ROS Statement are negative. EKG Findings - EKG Comments: EKG Findings:: EKG shows sinus rhythm rate of 82, NV 1236, QRS 02, QTc 427, patient does have lateral T-wave inversions Past Medical History Past Medical History: Atrial Fibrillation, Heart Failure, Diabetes Mellitus, Osteoarthritis (OA) Additional Past Medical History / Comment(s): CARDIOMYOPATHY, GOUT, DEFIB History of Any Multi-Drug Resistant Organisms: None Reported Past Surgical History: Heart Catheterization, Orthopedic Surgery, Pacemaker Additional Past Surgical History / Comment(s): LEFT ANKLE, LEFT WRIST, DEFIB PLACEMENT Past Psychological History: No Psychological Hx Reported Smoking Status: Former smoker Past Alcohol Use History: Occasional Past Drug Use History: None Reported General Exam Limitations: no limitations General appearance: alert, in no apparent distress Head exam: Present: atraumatic, normocephalic, normal inspection Eye exam: Present: normal appearance, PERRL, EOMI. Absent: scleral icterus, conjunctival injection, periorbital swelling ENT exam: Present: normal exam, mucous membranes moist Neck exam: Present: normal inspection. Absent: tenderness, meningismus, lymphadenopathy Respiratory exam: Present: normal lung sounds bilaterally. Absent: respiratory distress, wheezes, rales, rhonchi, stridor Cardiovascular Exam: Present: regular rate, normal rhythm, normal heart sounds. Absent: systolic murmur, diastolic murmur, rubs, gallop, clicks GI/Abdominal exam: Present: soft, normal bowel sounds. Absent: distended, tenderness, guarding, rebound, rigid Extremities exam: Present: normal inspection, full ROM, normal capillary refill. Absent: tenderness, pedal edema, joint swelling, calf tenderness Back exam: Present: normal inspection Neurological exam: Present: alert, oriented X3, CN II-XII intact Psychiatric exam: Present: normal affect, normal mood Skin exam: Present: warm, dry, intact, normal color. Absent: rash Course Vital Signs 06/20/18 23:29 Temperature 97.8 F Pulse Rate 86 Respiratory 18 Rate Blood Pressure 108/53 O2 Sat by Pulse 96 Oximetry - Reevaluation(s) Reevaluation #1: 06/21/18 00:26 Medical record is thoroughly reviewed Reevaluation #5: 06/21/18 00:26 Studies Chest x-ray suspicious for pneumonia Chest Pain MDM - MDM 67 male the ER with chest pain left-sided chest pain and shortness of breath, possible underlying pneumonia, lateral T-wave inversion, patient will be admitted for cardiac evaluation and treatment Critical Care Time Critical Care Time: Yes Total Critical Care Time: 31 Disposition Clinical Impression: Chest pain, Community acquired pneumonia Disposition: ADMITTED IP TO THIS HOSP Condition: Good Is patient prescribed a controlled substance at d/c from ED?: No Referrals: Km Hawthorne DO [Primary Care Provider] - 1-2 days
[2018-06-20] MEDS ORDERED: SODIUM CHLORIDE 0.9% 1,000 ML IV SCH (23:45)
[2018-06-21 00:21] LABS: Basophils % (A) 0 %; Eosinophils # (A) 0.2 k/uL (0-0.7); Eosinophils % (A) 2 %; HCT 36.1 % (39.0-53.0); HGB 12.2 gm/dL (13.0-17.5); Lymphocytes # (A) 1.9 k/uL (1.0-4.8); Lymphocytes % (A) 22 %; MCH 29.3 pg (25.0-35.0); MCHC 33.8 g/dL (31.0-37.0); MCV 86.6 fL (80.0-100.0); Mean Platelet Volume 7.3; Monocytes # (A) 0.6 k/uL (0-1.0); Monocytes % (A) 7 %; Neutrophils # (A) 5.9 k/uL (1.3-7.7); Neutrophils % (A) 68 %; Platelet Count 190 k/uL (150-450); RBC 4.16 m/uL (4.30-5.90); RDW 13.7 % (11.5-15.5); WBC 8.7 k/uL (3.8-10.6)
--- NOTE | 2018-06-21 00:23 | XR ---
EXAMINATION TYPE: XR chest 2V DATE OF EXAM: 06/21/2018 COMPARISON: 09/30/2017 HISTORY: Short of breath TECHNIQUE: Frontal and lateral views of the chest are obtained. FINDINGS: Heart and mediastinum are normal. There is some increased density in both lower lobes and more on the right side consistent with pneumonia. There is small amount of fluid in the right major f issure. There is slight blunting of the costophrenic angles. There is left axillary pacemaker with th e lead tip in the right ventricle. IMPRESSION: There is increased lung markings in the lower lobes compared to last exam. I suspect a m ild pneumonia. New small pleural effusions. No overt heart failure seen.
[2018-06-21] MEDS ORDERED: IPRATROPIUM-ALBUTEROL 3 ML NEB INHALATION STA (00:25)
[2018-06-21] MEDS ORDERED: LEVOFLOXACIN 750MG-D5W PMX 750 MG in DEXTROSE/WATER 1 150ML.BAG IVPB STA (00:25)
[2018-06-21] MEDS ORDERED: IPRATROPIUM-ALBUTEROL 3 ML NEB INHALATION PRN (00:25)
[2018-06-21 00:26] LABS: Albumin 3.9 g/dL (3.5-5.0); Calcium 9.4 mg/dL (8.4-10.2); INR 1.1 (<1.2); Magnesium 1.5 mg/dL (1.6-2.3); Partial Thromboplastin Time 23.1 sec (22.0-30.0); Potassium 4.3 mmol/L (3.5-5.1); Prothrombin Time 10.8 sec (9.0-12.0); Total Bilirubin 0.4 mg/dL (0.2-1.3); Total Protein 6.2 g/dL (6.3-8.2)
[2018-06-21 00:52] LABS: Troponin I 0.027 ng/mL (0.000-0.034)
[2018-06-21] MEDS ORDERED: HEPARIN SODIUM,PORCINE 5,000 UNIT/ML 1 ML VIAL IV PRN (00:54)
[2018-06-21] MEDS ORDERED: HEPARIN SODIUM,PORCINE 5,000 UNIT/ML 1 ML VIAL IV ONE (00:54)
[2018-06-21] MEDS ORDERED: HEPARIN SOD,PORK IN 0.45% NACL 25,000 UNIT in 0.45% NACL 1 500ML.BAG IV SCH (01:00)
[2018-06-21 02:01] LABS: Glucose,Whole Blood 129 mg/dL (75-99)
[2018-06-21 02:15] LABS: Cholesterol 153 mg/dL (<200); HDL Cholesterol 28 mg/dL (40-60); LDL Cholesterol,Calculated 95 mg/dL (0-99); Triglycerides 151 mg/dL (<150)
[2018-06-21] MEDS ORDERED: ACETAMINOPHEN TAB 325 MG TAB PO PRN (06:06)
[2018-06-21 06:39] LABS: Glucose,Whole Blood 109 mg/dL (75-99)
[2018-06-21 07:16] VITALS: RESP 16
[2018-06-21 07:47] LABS: Creatine Kinase MB 1.4 ng/mL (0.0-2.4); Troponin I 0.033 ng/mL (0.000-0.034)
[2018-06-21] MEDS ORDERED: FUROSEMIDE 10 MG/ML 2 ML VIAL IV ONE (08:12)
[2018-06-21] MEDS ORDERED: Magnesium Replacement Protocol 1 EACH MISC MISCELLANE PRN (08:13)
[2018-06-21] MEDS ORDERED: DIGOXIN 125 MCG TAB PO SCH (09:00)
[2018-06-21] MEDS ORDERED: ASPIRIN 325 MG TAB PO SCH (09:00)
[2018-06-21] MEDS ORDERED: LISINOPRIL 5 MG TAB PO SCH (09:00)
[2018-06-21] MEDS ORDERED: SPIRONOLACTONE 25 MG TAB PO SCH (09:00)
[2018-06-21] MEDS ORDERED: CARVEDILOL 6.25 MG TAB PO SCH (09:00)
[2018-06-21] MEDS ORDERED: ASPIRIN 81 MG PO SCH (09:00)
[2018-06-21] MEDS ORDERED: METOPROLOL TARTRATE 25 MG TAB PO SCH (09:00)
[2018-06-21] MEDS ORDERED: ATORVASTATIN 80 MG TAB PO SCH (09:00)
--- NOTE | 2018-06-21 09:49 | P.CRDCN ---
History of Present Illness History of present illness: Mr. Melchor is a pleasant 67-year-old male past medical history significant for dilated cardiomyopathy, chronic systolic heart failure EF 20-25% , AICD in place, diabetes mellitus, dyslipidemia and former nicotine dependence. He follows with Dr. Ontiveros out of [facility]. We have been asked to see him in consultation for chest pain. He is seen and examined with myself and Dr. Mcgee resting flat in bed with at the bedside in no acute distress. He states for the previous couple of weeks he has felt increasingly short of breath. He has been quite active with bear hunting and deer hunting and has been exerting himself significantly with those 2 events over the last few weeks. He has been tolerating at home until yesterday when he started feeling pressure in his chest in the mid-sternal region. He did some yard work and grass cutting yesterday and again was feeling short of breath and tired. Then the pressure in his chest started. He has an appointment to see his decaler next week and was trying to hold off until his appointment. Upon arrival to the hospital he was given oxygen and the pressure immediately went away in his chest. He denies dizziness, palpitations, nausea, vomiting, diaphoresis, orthopnea, PND, cough or fever/chills. EKG reveals first degree AV block with lateral T-wave inversions and non- specific inferior abnormalities. Consistent with old EKG from September. Chest xray shows increased density in both lower lobes, worse on the right. No overt heart failure. Laboratory data reviewed, WBC 8.7, hgb 12.2, plt 190, sodium 139, potassium 4.3 , magnesium 1.5, creatinine 1.09, cardiac enzymes negative x2, NTproBNP 2860, LDL 95, HDL 28. Current cardiac medications include Aldactone 25 mg daily, lisinopril 5 mg twice a day, Lasix 20 mg twice a day, digoxin 125 g daily, carvedilol 6.25 mg twice a day and aspirin 81 mg daily. He also takes allopurinol, insulin, Viagra , Glucophage. Most recent stress test performed at his physician's office November 2017 negative for stress-induced cardiac ischemic changes. Most recent echocardiogram performed September 2017 reveals severely diminished left ventricular systolic function with ejection fraction 20-25% with global LV hypokinesia and moderately dilated. Plan: We have requested records of his recent stress test and have been reviewed. Obtain 2D echocardiogram and doppler study to assess cardiac structure and function. NTproBNP has been ordered and is 2860, mildly elevated possibly his baseline with chronic systolic function. Give one dose of IV lasix 20 mg now. Replace magnesium per protocol. Resume home medications as previously ordered. Review of Systems At the time of my exam: CONSTITUTIONAL: Denies fever. Denies chills. EYES: Denies blurred vision. Denies vision changes. Denies eye pain. EARS, NOSE, MOUTH & THROAT: Denies headache. Denies sore throat. Denies ear pain. CARDIOVASCULAR: Denies chest pain. Denies shortness of breath. Denies orthopnea. Denies PND. Denies palpitations. RESPIRATORY: Denies cough. GASTROINTESTINAL: Denies abdominal pain. Denies diarrhea. Denies constipation. Denies nausea. Denies vomiting. MUSCULOSKELETAL: Denies myalgias. INTEGUMENTARY: Denies pruitis. Denies rash. NEUROLOGIC: Denies numbness. Denies tingling. Denies weakness. PSYCHIATRIC: Denies anxiety. Denies depression. ENDOCRINE: Denies fatigue. Denies weight change. Denies polydipsia. Denies polyurina. GENITOURINARY: Denies burning, hematuria or urgency with micturation. HEMATOLOGIC: Denies history of anemia. Denies bleeding. Past Medical History Past Medical History: Atrial Fibrillation, Heart Failure, Diabetes Mellitus, Osteoarthritis (OA) Additional Past Medical History / Comment(s): CARDIOMYOPATHY, GOUT, AICD/PPM- last implantation 2009 History of Any Multi-Drug Resistant Organisms: None Reported Past Surgical History: Heart Catheterization, Orthopedic Surgery, Pacemaker Additional Past Surgical History / Comment(s): LEFT ANKLE, LEFT WRIST, AICD/PPM PLACEMENT Past Anesthesia/Blood Transfusion Reactions: No Reported Reaction Additional Past Anesthesia/Blood Transfusion Reaction / Comment(s): "Spinal given and did not work with my ankle surgery" Type of Cardiac Device: Permanent Pacemaker, AICD Device Placement Date:: 2009 Past Psychological History: No Psychological Hx Reported Smoking Status: Former smoker Past Alcohol Use History: Occasional Past Drug Use History: None Reported - Past Family History Father Family Medical History: Congestive Heart Failure (CHF), Diabetes Mellitus Mother Family Medical History: Congestive Heart Failure (CHF) Medications and Allergies Home Medications Medication Instructions Recorded Confirmed Type Allopurinol [Zyloprim] 300 mg PO DAILY 09/30/17 06/20/18 History Ascorbic Acid [Vitamin C] 500 mg PO DAILY 09/30/17 06/20/18 History Aspirin 81 mg PO DAILY 09/30/17 06/20/18 History Cyanocobalamin (Vitamin B-12) 1,000 mcg PO DAILY 09/30/17 06/20/18 History [Vitamin B-12] Digoxin [Digitek] 125 mcg PO DAILY 09/30/17 06/20/18 History Furosemide [Lasix] 20 mg PO BID 09/30/17 06/20/18 History Insulin Detemir [Levemir Flextouch] 40 units SQ HS 09/30/17 06/20/18 History Lysine [l-Lysine] 500 mg PO DAILY 09/30/17 06/20/18 History Multivitamins, Thera [Multivitamin 1 tab PO DAILY 09/30/17 06/20/18 History (formulary)] [place]-3S/Dha/Epa/Fish Oil [Fish 1 cap PO DAILY 09/30/17 06/20/18 History Oil 1,000 mg Softgel] Sildenafil Citrate [Viagra] 100 mg PO ONCE PRN 09/30/17 06/20/18 History Spironolactone [Aldactone] 25 mg PO DAILY 09/30/17 06/20/18 History Carvedilol [Coreg] 6.25 mg PO BID 06/20/18 06/20/18 History Ginkgo Biloba 500 mg PO DAILY 06/20/18 06/20/18 History Lisinopril [Zestril] 5 mg PO BID 06/20/18 06/20/18 History Saw [place] 500 mg PO DAILY 06/20/18 06/20/18 History Vitamin D3(Unknown Dose) 1 tab PO DAILY 06/20/18 06/20/18 History metFORMIN HCL [Glucophage] 1,000 mg PO BID 06/20/18 06/20/18 History Allergies Allergy/AdvReac Type Severity Reaction Status Date / Time Yjzmvfy-[id number]-Xzk Reductase AdvReac MUSCLE PAIN Verified 06/20/18 23:44 Inhibitor Physical Exam Vitals: Vital Signs Temp Pulse Pulse Resp BP BP Pulse Ox 06/21/18 08:53 93 L 06/21/18 07:14 98.1 F 76 16 90/62 98 06/21/18 04:00 63 18 06/21/18 02:01 98.1 F 63 18 101/72 99 06/21/18 01:35 77 H 96/61 98 06/21/18 01:24 79 06/21/18 01:16 79 06/21/18 00:55 63 18 06/21/18 00:34 78 16 95/61 97 06/20/18 23:29 97.8 F 86 18 108/53 96 Intake and Output 06/20/18 06/21/18 06/21/18 22:59 06:59 14:59 Other: Voiding Method Toilet # Voids 1 Weight 95.9 kg Blood pressure 90/62 heart rate 76 afebrile maintaining oxygen saturation on room air GENERAL: This is a 67-year-old male in no apparent distress at the time of my examination. HEENT: Head is atraumatic, normocephalic. Pupils are equal, round. Sclerae anicteric. Conjunctivae are clear. Mucous membranes of the mouth are moist. Neck is supple. There is no jugular venous distention. No carotid bruit is heard. LUNGS: Faint bibasilar rales. No wheezes or rhonchi. No chest wall tenderness is noted on palpation or with deep breathing. HEART: Regular rate and rhythm with murmur at the apex, no rubs or gallops. S1 and S2 heard. ABDOMEN: Soft, nontender. Bowel sounds are heard. No organomegaly noted. EXTREMITIES: No evidence of peripheral edema and no calf tenderness noted. VASCULAR: Radial and dorsalis pedis pulses palpated, no evidence of clubbing. NEUROLOGIC: Patient is awake, alert and oriented x3. Results 06/20/18 23:55 06/20/18 23:55 Cardiac Enzymes 06/20/18 06/20/18 06/21/18 Range/Units 23:55 23:55 06:14 AST 27 (17-59) U/L CK-MB (CK-2) 2.0 1.4 (0.0-2.4) ng/mL Troponin I 0.027 0.033 (0.000-0.034) ng/mL Coagulation 06/20/18 06/21/18 Range/Units 23:55 06:14 PT 10.8 (9.0-12.0) sec APTT 23.1 32.4 H (22.0-30.0) sec Lipids 06/20/18 Range/Units 23:55 Triglycerides 151 H (<150) mg/dL Cholesterol 153 (<200) mg/dL HDL Cholesterol 28 L (40-60) mg/dL CBC 06/20/18 Range/Units 23:55 WBC 8.7 (3.8-10.6) k/uL RBC 4.16 L (4.30-5.90) m/uL Hgb 12.2 L (13.0-17.5) gm/dL Hct 36.1 L (39.0-53.0) % Plt Count 190 (150-450) k/uL Comprehensive Metabolic Panel 06/20/18 Range/Units 23:55 Sodium 139 (137-145) mmol/L Potassium 4.3 (3.5-5.1) mmol/L Chloride 100 (98-107) mmol/L Carbon Dioxide 30 (22-30) mmol/L BUN 28 H (9-20) mg/dL Creatinine 1.09 (0.66-1.25) mg/dL Glucose 129 H (74-99) mg/dL Calcium 9.4 (8.4-10.2) mg/dL AST 27 (17-59) U/L ALT 36 (21-72) U/L Alkaline Phosphatase 48 (38-126) U/L Total Protein 6.2 L (6.3-8.2) g/dL Albumin 3.9 (3.5-5.0) g/dL Current Medications Generic Name Dose Route Start Last Admin Trade Name Freq PRN Reason Stop Dose Admin Acetaminophen 650 mg 06/21/18 06:06 06/21/18 06:09 Tylenol Tab PO 650 mg Q4HR PRN Administration Fever and/ or Pain Albuterol/Ipratropium 3 ml 06/21/18 00:25 Duoneb 0.5 Mg-3 Mg/3 Ml Soln INHALATION RT-QID PRN Shortness Of Breath Or Wheezing Aspirin 81 mg 06/21/18 09:00 Aspirin PO DAILY [facility] Carvedilol 6.25 mg 06/21/18 09:00 Coreg PO BID [facility] Digoxin 125 mcg 06/21/18 09:00 Lanoxin PO DAILY [facility] Heparin Sodium (Porcine) 0 unit 06/21/18 00:54 Heparin IV PER PROTOCOL PRN Low PTT Protocol Levofloxacin 750 mg/ IV 150 mls @ 100 mls/hr 06/22/18 00:00 Solution IVPB Q24H [facility] Magnesium Sulfate/Dextrose 1 100 mls @ 100 mls/hr 06/21/18 08:15 gm/ IV Solution IVPB 06/21/18 10:14 Q1H [facility] Lisinopril 5 mg 06/21/18 09:00 Zestril PO BID [facility] Miscellaneous Information 1 each 06/21/18 08:13 Magnesium Per Protocol MISCELLANE DAILY PRN Per Protocol Protocol Morphine Sulfate 4 mg 06/20/18 23:35 Morphine Sulfate (Inj) IV Q4HR PRN Chest Pain Nitroglycerin 0.4 mg 06/20/18 23:35 Nitrostat SUBLINGUAL Q5M PRN Chest Pain Spironolactone 25 mg 06/21/18 09:00 Aldactone PO DAILY [facility] Intake and Output 06/20/18 06/21/18 06/21/18 22:59 06:59 14:59 Other: Voiding Method Toilet # Voids 1 Weight 95.9 kg 06/20/18 23:55 06/20/18 23:55 Assessment and Plan Assessment: ASSESSMENT Acute on chronic systolic heart failure, EF 20-25% Hypomagnesemia Diabetes mellitus Dyslipidemia, statin intolerance. Diet controlled. LDL 95. PLAN An acute coronary event has been ruled out. Heparin infusion can be discontinued. We have requested records of his recent stress test and have been reviewed. Obtain 2D echocardiogram and doppler study to assess cardiac structure and function. NTproBNP has been ordered and is 2860, mildly elevated possibly his baseline with chronic systolic function. Give one dose of IV lasix 20 mg now. Replace magnesium per protocol. Resume home medications as previously ordered. Thank you kindly for this consultation. Nurse Practitioner note has been reviewed, I agree with a documented findings and plan of care. Patient was seen and examined.
[2018-06-21] MEDS: MAGNESIUM SULFATE-D5W PMX 1 GM in DEXTROSE/WATER 1 100ML.BAG IVPB SCH ×2 (10:04→11:10)
[2018-06-21 11:35] VITALS: BP 92/61; PULSE 79; TEMP 97.4
[2018-06-21 12:15] LABS: Glucose,Whole Blood 147 mg/dL (75-99)
--- NOTE | 2018-06-21 12:24 | ECHOF ---
Referral Reason:sob MEASUREMENTS -------- HEIGHT: 188.0 cm WEIGHT: 95.7 kg BP: IVSd: 0.9 cm (0.6 - 1.1) LVIDd: 7.0 cm (3.9 - 5.3) LVPWd: 1.2 cm (0.6 - 1.1) IVSs: 1.0 cm LVIDs: 6.1 cm LVPWs: 1.1 cm LA Diam: 4.3 cm (2.7 - 3.8) LAESV Index (A-L): 59.99 ml/m Ao Diam: 3.0 cm (2.0 - 3.7) AV Cusp: 2.1 cm (1.5 - 2.6) LA Diam: 4.1 cm (2.7 - 3.8) MV EXCURSION: 19.783 mm (> 18.000) MV EF SLOPE: 86 mm/s (70 - 150) EPSS: 2.5 cm MV E Alvin: 0.93 m/s MV DecT: 107 ms MV A Alvin: 0.22 m/s MV E/A Ratio: 4.13 RAP: 5.00 mmHg RVSP: 37.98 mmHg FINDINGS -------- Paced rhythm. The left ventricle is mildly dilated. Left ventricular wall thickness is normal. There is severe global hypokinesis of LV . Overall left ventricular systolic function is severely impaired with, an EF between 20 - 25 %. The right ventricle is normal in size. The left atrium is mildly dilated. LA is severely dilated >40 ml/m2 The right atrial size is normal. [place] used to r/o Thrombus in [place]: Non compacted LV. Mild mitral regurgitation is present. Mild tricuspid regurgitation present. There is mild pulmonary hypertension. The right ventricular systolic pressure, as measured by Doppler, is 37.98mmHg. Trace/mild (physiologic) pulmonic regurgitation. The aortic root size is normal. There is no pericardial effusion. CONCLUSIONS -------- 1. Left ventricular wall thickness is normal. 2. There is severe global hypokinesis of LV . 3. Overall left ventricular systolic function is severely impaired with, an EF between 20 - 25 %. 4. The right ventricle is normal in size. 5. The left atrium is mildly dilated. 6. LA is severely dilated >40 ml/m2 7. The right atrial size is normal. 8. [place] used to r/o Thrombus in [place]: Non compacted LV. 9. Mild mitral regurgitation is present. 10. Mild tricuspid regurgitation present. 11. There is mild pulmonary hypertension. 12. The right ventricular systolic pressure, as measured by Doppler, is 37.98mmHg. 13. Trace/mild (physiologic) pulmonic regurgitation. 14. The aortic root size is normal. 15. There is no pericardial effusion. GEOSPATIAL INTELLIGENCE ANALYST: Kim Cross RDCS
[2018-06-21 12:52] LABS: Creatine Kinase MB 1.3 ng/mL (0.0-2.4); Troponin I 0.02 ng/mL (0.000-0.034)
[2018-06-21] MEDS ORDERED: MAGNESIUM SULFATE-D5W PMX 1 GM in DEXTROSE/WATER 1 100ML.BAG IVPB SCH (13:00)
--- NOTE | 2018-06-21 13:52 | P.HPIM ---
History of Present Illness 67-year-old pleasant man came in with complaints of shortness of breath and chest pressure like sensation which completely resolved now patient denied any significant orthopnea paroxysmal nocturnal dyspnea patient does have ejection fraction of 20-25% does have an AICD in place. Patient was given a dose of IV Lasix inhalational treatments with significant improvement in shortness of breath and patient wanted to be discharged. Chest x-ray was read as possibly of pneumonia. I reviewed the chest x-ray patient has minimal pulmonary edema and may have a competent of COPD patient will be given albuterol and Symbicort prescriptions I do not believe he will require any systemic steroids. Patient was a smoker quit smoking years ago still started smoking again and smokes about 2-3 cigarettes a day patient was complaining of cough without any significant sputum production patient does not have any wheeze on exam which may have resolved by the time when I examine the patient with the breathing treatments from ER. As of now I do not have complete evidence of COPD because of which have not discharging him on anticholinergic medication. Patient will use his Symbicort and albuterol as needed Symbicort probably can be discontinued down the line. Patient will continue his home dose of Lasix repeat echocardiogram obtained which showed a showed a fraction of 20-25% patient presently doesn't have any significant JVD or pedal edema. Patient does not have any clinical signs of pneumonia including sputum production, leukocytosis, chest x-ray was reviewed by me not impressed by the pneumonia diagnosis I do not believe patient will benefit from any antibiotics U Floxin will be discontinued patient doesn't have any fever at home. Review of Systems REVIEW OF SYSTEMS: CONSTITUTIONAL: No fever, no malaise, no fatigue. HEENT: No recent visual problems or hearing problems. Denied any sore throat. CARDIOVASCULAR: No orthopnea, PND, no palpitations, no syncope. PULMONARY: no hemoptysis. GASTROINTESTINAL: No diarrhea, no nausea, no vomiting, no abdominal pain. Normoactive bowel sounds. NEUROLOGICAL: No headaches, no weakness, no numbness. HEMATOLOGICAL: Denies any bleeding or petechiae. GENITOURINARY: Denies any burning micturition, frequency, or urgency. MUSCULOSKELETAL/RHEUMATOLOGICAL: Denies any joint pain, swelling, or any muscle pain. ENDOCRINE: Denies any polyuria or polydipsia. The rest of the 14-point review of systems is negative. Past Medical History Past Medical History: Atrial Fibrillation, Heart Failure, Diabetes Mellitus, Osteoarthritis (OA) Additional Past Medical History / Comment(s): CARDIOMYOPATHY, GOUT, AICD/PPM- last implantation 2009 History of Any Multi-Drug Resistant Organisms: None Reported Past Surgical History: Heart Catheterization, Orthopedic Surgery, Pacemaker Additional Past Surgical History / Comment(s): LEFT ANKLE, LEFT WRIST, AICD/PPM PLACEMENT Past Anesthesia/Blood Transfusion Reactions: No Reported Reaction Additional Past Anesthesia/Blood Transfusion Reaction / Comment(s): "Spinal given and did not work with my ankle surgery" Type of Cardiac Device: Permanent Pacemaker, AICD Device Placement Date:: 2009 Past Psychological History: No Psychological Hx Reported Smoking Status: Former smoker Past Alcohol Use History: Occasional Past Drug Use History: None Reported - Past Family History Father Family Medical History: Congestive Heart Failure (CHF), Diabetes Mellitus Mother Family Medical History: Congestive Heart Failure (CHF) Medications and Allergies Home Medications Medication Instructions Recorded Confirmed Type Allopurinol [Zyloprim] 300 mg PO DAILY 09/30/17 06/20/18 History Ascorbic Acid [Vitamin C] 500 mg PO DAILY 09/30/17 06/20/18 History Aspirin 81 mg PO DAILY 09/30/17 06/20/18 History Cyanocobalamin (Vitamin B-12) 1,000 mcg PO DAILY 09/30/17 06/20/18 History [Vitamin B-12] Digoxin [Digitek] 125 mcg PO DAILY 09/30/17 06/20/18 History Insulin Detemir [Levemir Flextouch] 40 units SQ HS 09/30/17 06/20/18 History Lysine [l-Lysine] 500 mg PO DAILY 09/30/17 06/20/18 History Multivitamins, Thera [Multivitamin 1 tab PO DAILY 09/30/17 06/20/18 History (formulary)] [place]-3S/Dha/Epa/Fish Oil [Fish 1 cap PO DAILY 09/30/17 06/20/18 History Oil 1,000 mg Softgel] Sildenafil Citrate [Viagra] 100 mg PO ONCE PRN 09/30/17 06/20/18 History Spironolactone [Aldactone] 25 mg PO DAILY 09/30/17 06/20/18 History Carvedilol [Coreg] 6.25 mg PO BID 06/20/18 06/20/18 History Ginkgo Biloba 500 mg PO DAILY 06/20/18 06/20/18 History Lisinopril [Zestril] 5 mg PO BID 06/20/18 06/20/18 History Saw [place] 500 mg PO DAILY 06/20/18 06/20/18 History Vitamin D3(Unknown Dose) 1 tab PO DAILY 06/20/18 06/20/18 History metFORMIN HCL [Glucophage] 1,000 mg PO BID 06/20/18 06/20/18 History Albuterol Inhaler [Ventolin Hfa 1 - 2 puff INHALATION Q6HR PRN #1 06/21/18 Rx Inhaler] inhaler Budesonide-Formot 160-4.5 Mcg 2 puff INHALATION BID #1 inhaler 06/21/18 Rx [Symbicort 160-4.5 Mcg Inhaler] Furosemide [Lasix] 40 mg PO BID #60 tablet 06/21/18 Rx Allergies Allergy/AdvReac Type Severity Reaction Status Date / Time Zzwgljf-Cbb-Nbr Reductase AdvReac MUSCLE PAIN Verified 06/20/18 23:44 Inhibitor Physical Exam Vitals: Vital Signs Temp Pulse Pulse Resp BP BP Pulse Ox 06/21/18 11:33 97.4 F L 79 16 92/61 96 06/21/18 11:11 60 105/63 06/21/18 08:53 93 L 06/21/18 07:14 98.1 F 76 16 90/62 98 06/21/18 04:00 63 18 06/21/18 02:01 98.1 F 63 18 101/72 99 06/21/18 01:35 77 H 96/61 98 06/21/18 01:24 79 06/21/18 01:16 79 06/21/18 00:55 63 18 06/21/18 00:34 78 16 95/61 97 06/20/18 23:29 97.8 F 86 18 108/53 96 Intake and Output 06/20/18 06/21/18 06/21/18 22:59 06:59 14:59 Other: Voiding Method Toilet Toilet # Voids 1 Weight 95.9 kg PHYSICAL EXAMINATION: GENERAL: The patient is alert and oriented x3, not in any acute distress. Well developed, well nourished. HEENT: Pupils are round and equally reacting to light. EOMI. No scleral icterus. No conjunctival pallor. Normocephalic, atraumatic. No pharyngeal erythema. No thyromegaly. CARDIOVASCULAR: S1 and S2 present. No murmurs, rubs, or gallops. PULMONARY: Chest is clear to auscultation, no wheezing or crackles. ABDOMEN: Soft, nontender, nondistended, normoactive bowel sounds. No palpable organomegaly. MUSCULOSKELETAL: No joint swelling or deformity. EXTREMITIES: No cyanosis, clubbing, or pedal edema. NEUROLOGICAL: Gross neurological examination did not reveal any focal deficits. SKIN: No rashes. Results CBC & Chem 7: 06/20/18 23:55 06/20/18 23:55 Labs: Abnormal Lab Results - Last 24 Hours (Table) 06/20/18 06/20/18 06/20/18 Range/Units 23:55 23:55 23:55 RBC 4.16 L (4.30-5.90) m/uL Hgb 12.2 L (13.0-17.5) gm/dL Hct 36.1 L (39.0-53.0) % APTT (22.0-30.0) sec BUN (9-20) mg/dL Glucose (74-99) mg/dL POC Glucose (mg/dL) (75-99) mg/dL Magnesium (1.6-2.3) mg/dL Total Creatine Kinase 190 H (55-170) U/L Total Protein (6.3-8.2) g/dL Triglycerides 151 H (<150) mg/dL HDL Cholesterol 28 L (40-60) mg/dL 06/20/18 06/21/18 06/21/18 Range/Units 23:55 01:58 06:14 RBC (4.30-5.90) m/uL Hgb (13.0-17.5) gm/dL Hct (39.0-53.0) % APTT 32.4 H (22.0-30.0) sec BUN 28 H (9-20) mg/dL Glucose 129 H (74-99) mg/dL POC Glucose (mg/dL) 129 H (75-99) mg/dL Magnesium 1.5 L (1.6-2.3) mg/dL Total Creatine Kinase (55-170) U/L Total Protein 6.2 L (6.3-8.2) g/dL Triglycerides (<150) mg/dL HDL Cholesterol (40-60) mg/dL 06/21/18 06/21/18 Range/Units 06:33 12:12 RBC (4.30-5.90) m/uL Hgb (13.0-17.5) gm/dL Hct (39.0-53.0) % APTT (22.0-30.0) sec BUN (9-20) mg/dL Glucose (74-99) mg/dL POC Glucose (mg/dL) 109 H 147 H (75-99) mg/dL Magnesium (1.6-2.3) mg/dL Total Creatine Kinase (55-170) U/L Total Protein (6.3-8.2) g/dL Triglycerides (<150) mg/dL HDL Cholesterol (40-60) mg/dL Thrombosis Risk Factor Assmnt - Choose All That Apply Each Risk Factor Represents 2 Points: Age 61-74 years Thrombosis Risk Factor Assessment Total Risk Factor Score: 2 Thrombosis Risk Factor Assessment Level: Low Risk Assessment and Plan Plan: -Shortness of breath: Probably secondary to congestive heart failure chronic systolic dysfunction with mild acute exacerbation improved with IV Lasix, will be resumed on his home dose of Lasix. There may be a competent of minimal exacerbation of COPD. My suspicion is extremely low that patient has pneumonia -Rule out pneumonia -Hypomagnesemia potassium was supplemented -Type 2 diabetes mellitus -Hyperlipidemia -Atrial fibrillation presently rate controlled on anticoagulation which will be continued
--- NOTE | 2018-06-21 13:52 | P.DS ---
Providers Date of admission: 06/20/18 23:35 Attending physician: Beverley Gay Consults: 06/20/18 23:35 Consult Physician Urgent Consulting Provider: Ramon Brunner Consult Reason/Comments: cp Do you want consulting provider notified?: Yes Primary care physician: Km Hawthorne [facility] Course: Please refer to my HPI Patient Condition at Discharge: Good Plan - Discharge Summary Discharge Rx Participant: No New Discharge Prescriptions: New Furosemide [Lasix] 40 mg PO BID #60 tablet Albuterol Inhaler [Ventolin Hfa Inhaler] 1 - 2 puff INHALATION Q6HR PRN #1 inhaler PRN Reason: Shortness Of Breath Or Wheezing Budesonide-Formot 160-4.5 Mcg [Symbicort 160-4.5 Mcg Inhaler] 2 puff INHALATION BID #1 inhaler Discontinued Furosemide [Lasix] 20 mg PO BID No Action Norman-3S/Dha/Epa/Fish Oil [Fish Oil 1,000 mg Softgel] 1 cap PO DAILY Ascorbic Acid [Vitamin C] 500 mg PO DAILY Multivitamins, Thera [Multivitamin (formulary)] 1 tab PO DAILY Insulin Detemir [Levemir Flextouch] 40 units SQ HS Aspirin 81 mg PO DAILY Sildenafil Citrate [Viagra] 100 mg PO ONCE PRN PRN Reason: E.D. Digoxin [Digitek] 125 mcg PO DAILY Spironolactone [Aldactone] 25 mg PO DAILY Allopurinol [Zyloprim] 300 mg PO DAILY Lysine [l-Lysine] 500 mg PO DAILY Cyanocobalamin (Vitamin B-12) [Vitamin B-12] 1,000 mcg PO DAILY Vitamin D3(Unknown Dose) 1 tab PO DAILY Ginkgo Biloba 500 mg PO DAILY Lisinopril [Zestril] 5 mg PO BID metFORMIN HCL [Glucophage] 1,000 mg PO BID Carvedilol [Coreg] 6.25 mg PO BID [place] 500 mg PO DAILY Discharge Medication List Allopurinol [Zyloprim] 300 mg PO DAILY 09/30/17 [History] Ascorbic Acid [Vitamin C] 500 mg PO DAILY 09/30/17 [History] Aspirin 81 mg PO DAILY 09/30/17 [History] Cyanocobalamin (Vitamin B-12) [Vitamin B-12] 1,000 mcg PO DAILY 09/30/17 [ History] Digoxin [Digitek] 125 mcg PO DAILY 09/30/17 [History] Insulin Detemir [Levemir Flextouch] 40 units SQ HS 09/30/17 [History] Lysine [l-Lysine] 500 mg PO DAILY 09/30/17 [History] Multivitamins, Thera [Multivitamin (formulary)] 1 tab PO DAILY 09/30/17 [History ] Norman-3S/Dha/Epa/Fish Oil [Fish Oil 1,000 mg Softgel] 1 cap PO DAILY 09/30/17 [ History] Sildenafil Citrate [Viagra] 100 mg PO ONCE PRN 09/30/17 [History] Spironolactone [Aldactone] 25 mg PO DAILY 09/30/17 [History] Carvedilol [Coreg] 6.25 mg PO BID 06/20/18 [History] Ginkgo Biloba 500 mg PO DAILY 06/20/18 [History] Lisinopril [Zestril] 5 mg PO BID 06/20/18 [History] [place] 500 mg PO DAILY 06/20/18 [History] Vitamin D3(Unknown Dose) 1 tab PO DAILY 06/20/18 [History] metFORMIN HCL [Glucophage] 1,000 mg PO BID 06/20/18 [History] Albuterol Inhaler [Ventolin Hfa Inhaler] 1 - 2 puff INHALATION Q6HR PRN #1 inhaler 06/21/18 [Rx] Budesonide-Formot 160-4.5 Mcg [Symbicort 160-4.5 Mcg Inhaler] 2 puff INHALATION BID #1 inhaler 06/21/18 [Rx] Furosemide [Lasix] 40 mg PO BID #60 tablet 06/21/18 [Rx] Follow up Appointment(s)/Referral(s): Km Hawthorne DO [Primary Care Provider] - 3 Days Patient Instructions/Handouts: Chest Pain (DC) Discharge Disposition: HOME SELF-CARE
[2018-06-22] MEDS ORDERED: LEVOFLOXACIN 750MG-D5W PMX 750 MG in DEXTROSE/WATER 1 150ML.BAG IVPB SCH
[2018-06-22] MEDS ORDERED: POTASSIUM CHLORIDE ER 10 MEQ TAB.ER.PRT PO SCH (09:00)
== END 2018-06-21 13:32 | disposition home or self-care (01) ==
LOC: EC 23:21 → 3OBS 23:35
PROVIDERS: ADMIT Hospitalist; ATTEND Hospitalist
DX: R07.89 Other chest pain (principal); R06.02 Shortness of breath; R05 Cough; I48.91 Unspecified atrial fibrillation; I50.23 Acute on chronic systolic (congestive) heart failure; E83.42 Hypomagnesemia; E78.5 Hyperlipidemia, unspecified; I42.0 Dilated cardiomyopathy; F17.210 Nicotine dependence, cigarettes, uncomplicated; E11.9 Type 2 diabetes mellitus without complications; Z95.810 Presence of automatic (implantable) cardiac defibrillator; M19.90 Unspecified osteoarthritis, unspecified site; M10.9 Gout, unspecified; Z79.899 Other long term (current) drug therapy; Z79.82 Long term (current) use of aspirin; Z79.4 Long term (current) use of insulin; Z79.84 Long term (current) use of oral hypoglycemic drugs; Z79.51 Long term (current) use of inhaled steroids; Z79.01 Long term (current) use of anticoagulants; Z88.8 Allergy status to other drugs, medicaments and biological substances
CPT/HCPCS: 99291; 96365 ×2; 96376 ×2; 96375 ×3; 96366; 36415; 94640; 93005 ×2; 83880; 80061; 80053; 82550 ×2; 82553 ×2; 80162; 83690; 83735; 84484 ×2; 85025; 85610; 85730 ×2; 71046; G0378 ×2; C8929; J1644 ×2; J1940; J1956; J3475; Q9950; 93306

== ENCOUNTER → 2018-10-04 | Outpatient (CLI) | payer OTHER ==
--- NOTE | 2018-10-04 15:42 | NM ---
EXAMINATION TYPE: NM bone scan whole body DATE OF EXAM: 10/04/2018 COMPARISON: Plain films from outside institution 09/29/2017, 09/22/2017 HISTORY: Spondylosis without myelopathy, pain Delayed whole-body scanning was performed following the injection of 24.8 mCi Tc 99m MDP. Images acq uired 3 hours post injection. FINDINGS: Expected uptake in the left kidney is absent. Uptake within the shoulders, sternoclavicular joints is likely degenerative. Uptake noted in the cervical spine compatible with patient's degenerative disc disease. Uptake in the maxilla and mandible compatible with periodontal disease. IMPRESSION: Absent left kidney, correlate for appropriate history. Degenerative disc disease and osteoarthritis. Periodontal disease.
== END | disposition home or self-care (01) ==
LOC: RADNMMAIN 10:15
PROVIDERS: ATTEND Physical Medicine & Rehabilitation
DX: M50.30 Other cervical disc degeneration, unspecified cervical region (principal); M47.812 Spondylosis without myelopathy or radiculopathy, cervical region; K05.6 Periodontal disease, unspecified
CPT/HCPCS: 78306; A9503

== ENCOUNTER → 2018-11-25 | Outpatient (CLI) | payer OTHER ==
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
== END ==
LOC: RADCTMAIN 08:17
PROVIDERS: ATTEND Physical Medicine & Rehabilitation
DX: M48.02 Spinal stenosis, cervical region (principal); M50.21 Other cervical disc displacement, high cervical region; M50.30 Other cervical disc degeneration, unspecified cervical region
CPT/HCPCS: 72125

== ENCOUNTER 2019-04-28 17:35 | Emergency (ER) | payer MEDICARE ==
[2019-04-28 17:39] VITALS: TEMP 97.6
--- NOTE | 2019-04-28 18:42 | XR ---
EXAMINATION TYPE: XR chest 2V DATE OF EXAM: 04/28/2019 COMPARISON: NONE HISTORY: Short of breath TECHNIQUE: Frontal and lateral views of the chest are obtained. FINDINGS: There is no heart failure. There is slight blunting of right costophrenic angle. Lungs are clear of consolidation. Heart size is normal. Mediastinum is normal. There is a left axillary pacema ker. IMPRESSION: There is small right pleural effusion increased compared to last exam. No heart failure .
[2019-04-28] MEDS ORDERED: IPRATROPIUM-ALBUTEROL 3 ML NEB INHALATION STA (18:47)
[2019-04-28 19:07] LABS: Anisocytosis Slight; Basophils % (A) 0 %; Eosinophils # (A) 0.2 k/uL (0-0.7); Eosinophils % (A) 2 %; HCT 40.8 % (39.0-53.0); HGB 13.1 gm/dL (13.0-17.5); Lymphocytes # (A) 2.2 k/uL (1.0-4.8); Lymphocytes % (A) 23 %; MCH 28.1 pg (25.0-35.0); MCV 87.9 fL (80.0-100.0); Mean Platelet Volume 8.7; Monocytes # (A) 0.6 k/uL (0-1.0); Monocytes % (A) 6 %; Neutrophils # (A) 6.3 k/uL (1.3-7.7); Neutrophils % (A) 67 %; Platelet Count 183 k/uL (150-450); RBC 4.65 m/uL (4.30-5.90); RDW 16.7 % (11.5-15.5); WBC 9.3 k/uL (3.8-10.6)
[2019-04-28 19:15] LABS: INR 1.2 (<1.2); Partial Thromboplastin Time 23.1 sec (22.0-30.0); Prothrombin Time 12.2 sec (9.0-12.0)
[2019-04-28 19:17] LABS: Albumin 4.4 g/dL (3.5-5.0); Calcium 10.2 mg/dL (8.4-10.2); Magnesium 1.6 mg/dL (1.6-2.3); Potassium 4.4 mmol/L (3.5-5.1); Total Bilirubin 1.3 mg/dL (0.2-1.3); Total Protein 6.9 g/dL (6.3-8.2)
[2019-04-28] MEDS ORDERED: NITROGLYCERIN SL TABS 0.4 MG TAB SUBLINGUAL PRN (20:15)
--- NOTE | 2019-04-28 20:15 | ED ---
General Adult HPI - General Source: patient, RN notes reviewed, old records reviewed Mode of arrival: ambulatory Limitations: no limitations <Amrik Houston - Last Filed: 04/28/19 20:34> <Humberto Desai - Last Filed: 04/28/19 21:27> - General Chief complaint: Shortness of Breath Stated complaint: SOB Time Seen by Provider: 04/28/19 17:42 - History of Present Illness Initial comments: 68-year-old male patient past medical history of cardiomyopathy, ejection fraction approximately 2025%, AICD placement presents to ED with chief complaint of shortness of breath. Patient reports that his stress of breath is worse while laying supine, orthopnea. Patient denies any chest pain. Patient denies any other complaints at this time. Patient denies any history of cancer, pain in legs, recent extended travel. Systemic: Pt denies fatigue, fever/chills, rash. Pt denies weakness, night sweats, weight loss. Neuro: Pt denies headache, visual disturbances, syncope or pre-syncope. HEENT: Pt denies ocular discharge or irritation, otalgia, rhinorrhea, pharyngitis or notable lymphadenopathy. Cardiopulmonary: Pt denies chest pain, heart palpitations, dyspnea on exertion. Abdominal/GI: Pt denies abdominal pain, n/v/d. : Pt denies dysuria, burning w/ urination, frequency/urgency. Denies new onset urinary or bowel incontinence. MSK: Pt denies myalgia, loss of strength or function in extremities. Neuro: Pt denies new onset weakness, paresthesias. (Amrik Houston) - Related Data Home Medications Medication Instructions Recorded Confirmed Allopurinol [Zyloprim] 300 mg PO DAILY PRN 09/30/17 04/28/19 Ascorbic Acid [Vitamin C] 500 mg PO DAILY 09/30/17 04/28/19 Aspirin 81 mg PO DAILY 09/30/17 04/28/19 Cyanocobalamin (Vitamin B-12) 1,000 mcg PO DAILY 09/30/17 04/28/19 [Vitamin B-12] Digoxin [Digitek] 125 mcg PO DAILY 09/30/17 04/28/19 Insulin Detemir [Levemir Flextouch] 40 units SQ HS 09/30/17 04/28/19 Novi-3S/Dha/Epa/Fish Oil [Fish 2 cap PO DAILY 09/30/17 04/28/19 Oil 1,000 mg Softgel] Sildenafil Citrate [Viagra] 100 mg PO ONCE PRN 09/30/17 04/28/19 Spironolactone [Aldactone] 12.5 mg PO DAILY 09/30/17 04/28/19 Carvedilol [Coreg] 6.25 mg PO BID 06/20/18 04/28/19 Lisinopril [Zestril] 5 mg PO BID 06/20/18 04/28/19 Vitamin D3(Unknown Dose) 1 tab PO DAILY 06/20/18 04/28/19 Acetaminophen Tab [Tylenol Tab] 1,000 mg PO Q6H PRN 04/28/19 04/28/19 Albuterol Inhaler [Ventolin Hfa 2 puff INHALATION RT-QID PRN 04/28/19 04/28/19 Inhaler] Budesonide/Formoterol Fumarate 2 puff INHALATION RT-BID 04/28/19 04/28/19 [Symbicort 160-4.5 Mcg Inhaler] Cetirizine HCl [Zyrtec] 10 mg PO DAILY 04/28/19 04/28/19 Fluticasone Nasal [place] [Flonase 1 spr EA NOSTRIL DAILY 04/28/19 04/28/19 Nasal [place]] Furosemide [Lasix] 20 - 40 mg PO DAILY 04/28/19 04/28/19 Magnesium(Unknown) 1 tab PO DAILY 04/28/19 04/28/19 Milk Thistle 150 mg PO DAILY 04/28/19 04/28/19 Novi-3 Fatty Acids/Fish Oil [Fish 3 cap PO HS 04/28/19 04/28/19 Oil 1,000 mg Softgel] Saw [place] 500 mg PO DAILY 04/28/19 04/28/19 metFORMIN HCL 1,000 mg PO BID 04/28/19 04/28/19 Previous Rx's Medication Instructions Recorded Budesonide-Formot 160-4.5 Mcg 2 puff INHALATION BID #1 inhaler 06/21/18 [Symbicort 160-4.5 Mcg Inhaler] Allergies Allergy/AdvReac Type Severity Reaction Status Date / Time [id number] Reductase AdvReac MUSCLE PAIN Verified 04/28/19 17:58 Inhibitor Review of Systems ROS Other: All systems not noted in ROS Statement are negative. <MadelinechidiAmrik Richard - Last Filed: 04/28/19 20:34> ROS Other: All systems not noted in ROS Statement are negative. <LloydHumberto D - Last Filed: 04/28/19 21:27> ROS Statement: Those systems with pertinent positive or pertinent negative responses have been documented in the HPI. Past Medical History Past Medical History: Atrial Fibrillation, Heart Failure, Diabetes Mellitus, Osteoarthritis (OA) Additional Past Medical History / Comment(s): CARDIOMYOPATHY, GOUT, AICD/PPM- last implantation 2009 History of Any Multi-Drug Resistant Organisms: None Reported Past Surgical History: Heart Catheterization, Orthopedic Surgery, Pacemaker Additional Past Surgical History / Comment(s): LEFT ANKLE, LEFT WRIST, AICD/PPM PLACEMENT, epidural shots in neck Past Anesthesia/Blood Transfusion Reactions: No Reported Reaction Additional Past Anesthesia/Blood Transfusion Reaction / Comment(s): "Spinal given and did not work with my ankle surgery" Type of Cardiac Device: Permanent Pacemaker, AICD Device Placement Date:: 2009 Past Psychological History: No Psychological Hx Reported Smoking Status: Former smoker Past Alcohol Use History: Occasional Past Drug Use History: None Reported - Past Family History Father Family Medical History: Congestive Heart Failure (CHF), Diabetes Mellitus Mother Family Medical History: Congestive Heart Failure (CHF) <Amrik Houston - Last Filed: 04/28/19 20:34> General Exam Limitations: no limitations <Diallo Houstonjennifer Ramos - Last Filed: 04/28/19 20:34> - General Exam Comments Initial Comments: Constitutional: NAD, AOX3, Pt has pleasant affect. HEENT: NC/AT, trachea midline, neck supple, no lymphadenopathy. Posterior pharynx non erythematous, without exudates. External ears appear normal, without discharge. Mucous membranes moist. Eyes PERRLA, EOM intact. There is no scleral icterus. No pallor noted. Cardiopulmonary: RRR, no murmurs, rubs or gallops, no JVD noted. Crackles noted in posterior lung devries.. No peripheral edema. Abdominal exam: Abdomen soft and non-distended. Abdomen non-tender to palpation in all 4 quadrants. Bowel sounds active in LLQ. No hepatosplenomegaly. No ecchymosis Neuro: CN II-XII grossly intact. No nuchal rigidity. No raccon eyes, no ivllagomez sign, no hemotympanum. No cervical spinal tenderness. MSK: No posterior calf tenderness bilaterally, homans sign negative bilaterally. Posterior tibialis and radial pulse +2 bilaterally. Sensation intact in upper and lower extremities. Full active ROM in upper and lower extremities, 5/5 stregnth. (Amrik Houston) Course Vital Signs 04/28/19 04/28/19 04/28/19 17:36 18:38 19:00 Temperature 97.6 F Pulse Rate 89 81 75 Respiratory 18 18 20 Rate Blood Pressure 105/71 100/67 O2 Sat by Pulse 98 93 L 95 Oximetry 04/28/19 04/28/19 04/28/19 19:06 19:13 19:28 Temperature Pulse Rate 70 78 Respiratory 20 Rate Blood Pressure O2 Sat by Pulse Oximetry 04/28/19 04/28/19 04/28/19 20:00 20:50 20:51 Temperature Pulse Rate 78 Respiratory 18 Rate Blood Pressure 106/79 117/85 100/67 O2 Sat by Pulse 99 Oximetry Medical Decision Making - Lab Data Result diagrams: 04/28/19 19:00 04/28/19 19:00 - EKG Data -: EKG Interpreted by Az <Amrik Houston - Last Filed: 04/28/19 20:34> - Lab Data Result diagrams: 04/28/19 19:00 04/28/19 19:00 <Humberto Desai - Last Filed: 04/28/19 21:27> - Medical Decision Making 68-year-old male patient past medical history of CHF presents ED chief complaint of shortness of breath for one week. Patient does state Lasix at home. Patient vital signs stable, afebrile. Physical exam displayed crackles at base of hannah gs. Laboratory investigations revealed increased BNP of 7430. BUN/creatinine also mildly increased. Chest x-ray displayed new right pleural effusion. EKG not concerning for acute ischemia. Patient be admitted for CHF exacerbation, will be gently diuresed. Case discussed and pt seen by Dr. Desai. (Amrik Houston) She was evaluated by internal medicine physician. There medicine physician Dr. Villeda did not feel patient needed to be admitted to the hospital. Patient was reevaluated again at bedside. Discussion was held at length with patient con cerning his symptoms of CHF exacerbation. Patient has follow-up appointments. He was ambulated around the emergency department LABS without significant respiratory distress. Patient is feeling at baseline currently. Patient feels comfortable being discharged. Given patient's clinical presentation believe he is cleared for discharge given that he has good follow-up appointment. He is good family environment and is agreeable to return to the emergency department if he feels like his symptoms are getting worse. Brain was discussed. Patient understandable and agreeable to plan. (Humberto Desai) - Lab Data Lab Results 04/28/19 04/28/19 04/28/19 Range/Units 19:00 19:00 19:00 WBC 9.3 (3.8-10.6) k/uL RBC 4.65 (4.30-5.90) m/uL Hgb 13.1 (13.0-17.5) gm/dL Hct 40.8 (39.0-53.0) % MCV 87.9 (80.0-100.0) fL MCH 28.1 (25.0-35.0) pg MCHC 32.0 (31.0-37.0) g/dL RDW 16.7 H (11.5-15.5) % Plt Count 183 (150-450) k/uL Neutrophils % 67 % Lymphocytes % 23 % Monocytes % 6 % Eosinophils % 2 % Basophils % 0 % Neutrophils # 6.3 (1.3-7.7) k/uL Lymphocytes # 2.2 (1.0-4.8) k/uL Monocytes # 0.6 (0-1.0) k/uL Eosinophils # 0.2 (0-0.7) k/uL Basophils # 0.0 (0-0.2) k/uL Anisocytosis Slight PT (9.0-12.0) sec INR (<1.2) APTT (22.0-30.0) sec Sodium 140 (137-145) mmol/L Potassium 4.4 (3.5-5.1) mmol/L Chloride 102 (98-107) mmol/L Carbon Dioxide 27 (22-30) mmol/L Anion Gap 11 mmol/L BUN 28 H (9-20) mg/dL Creatinine 1.34 H (0.66-1.25) mg/dL Est GFR (CKD-EPI)AfAm 63 (>60 ml/min/1.73 sqM) Est GFR (CKD-EPI)NonAf 55 (>60 ml/min/1.73 sqM) Glucose 95 (74-99) mg/dL Calcium 10.2 (8.4-10.2) mg/dL Magnesium 1.6 (1.6-2.3) mg/dL Total Bilirubin 1.3 (0.2-1.3) mg/dL AST 29 (17-59) U/L ALT 30 (21-72) U/L Alkaline Phosphatase 59 (38-126) U/L Troponin I (0.000-0.034) ng/mL NT-Pro-B Natriuret Pep 7430 pg/mL Total Protein 6.9 (6.3-8.2) g/dL Albumin 4.4 (3.5-5.0) g/dL Lipase 204 (23-300) U/L 04/28/19 04/28/19 Range/Units 19:00 19:00 WBC (3.8-10.6) k/uL RBC (4.30-5.90) m/uL Hgb (13.0-17.5) gm/dL Hct (39.0-53.0) % MCV (80.0-100.0) fL MCH (25.0-35.0) pg MCHC (31.0-37.0) g/dL RDW (11.5-15.5) % Plt Count (150-450) k/uL Neutrophils % % Lymphocytes % % Monocytes % % Eosinophils % % Basophils % % Neutrophils # (1.3-7.7) k/uL Lymphocytes # (1.0-4.8) k/uL Monocytes # (0-1.0) k/uL Eosinophils # (0-0.7) k/uL Basophils # (0-0.2) k/uL Anisocytosis PT 12.2 H (9.0-12.0) sec INR 1.2 H (<1.2) APTT 23.1 (22.0-30.0) sec Sodium (137-145) mmol/L Potassium (3.5-5.1) mmol/L Chloride (98-107) mmol/L Carbon Dioxide (22-30) mmol/L Anion Gap mmol/L BUN (9-20) mg/dL Creatinine (0.66-1.25) mg/dL Est GFR (CKD-EPI)AfAm (>60 ml/min/1.73 sqM) Est GFR (CKD-EPI)NonAf (>60 ml/min/1.73 sqM) Glucose (74-99) mg/dL Calcium (8.4-10.2) mg/dL Magnesium (1.6-2.3) mg/dL Total Bilirubin (0.2-1.3) mg/dL AST (17-59) U/L ALT (21-72) U/L Alkaline Phosphatase (38-126) U/L Troponin I 0.014 (0.000-0.034) ng/mL NT-Pro-B Natriuret Pep pg/mL Total Protein (6.3-8.2) g/dL Albumin (3.5-5.0) g/dL Lipase (23-300) U/L - EKG Data EKG Comments: Ventricular 36, painful to 52, QS 94, QT/QTC 392 cm 441. Sinus rhythm with first-degree AV block, low voltage QRS, nonspecific T-wave abnormality. No concern for acute ischemia. (Amrik Houston) Disposition Is patient prescribed a controlled substance at d/c from ED?: No <Amrik Houston - Last Filed: 04/28/19 20:34> Is patient prescribed a controlled substance at d/c from ED?: No Time of Disposition: 21:27 <Humberto Desai - Last Filed: 04/28/19 21:27> Clinical Impression: CHF exacerbation Disposition: HOME SELF-CARE Condition: Good
[2019-04-28] MEDS ORDERED: SODIUM CHLORIDE 0.9% 1,000 ML IV STA (20:22)
[2019-04-28] MEDS ORDERED: FUROSEMIDE 10 MG/ML 4 ML VIAL IV SCH (20:30)
[2019-04-28 20:50] VITALS: RESP 18
[2019-04-28 21:53] VITALS: BP 110/74; PULSE 75
[2019-04-29] MEDS ORDERED: ASPIRIN 325 MG TAB PO SCH (09:00)
== END 2019-04-28 21:53 | disposition home or self-care (01) ==
LOC: EC 17:35 → 3SCARD 20:34 → UNDOADMOB 20:34 → EC 21:53
DX: I50.9 Heart failure, unspecified (principal); J90 Pleural effusion, not elsewhere classified; I48.91 Unspecified atrial fibrillation; E11.9 Type 2 diabetes mellitus without complications; Z79.82 Long term (current) use of aspirin; Z79.4 Long term (current) use of insulin; Z79.02 Long term (current) use of antithrombotics/antiplatelets; Z79.51 Long term (current) use of inhaled steroids; Z79.899 Other long term (current) drug therapy; Z88.8 Allergy status to other drugs, medicaments and biological substances; Z95.0 Presence of cardiac pacemaker; Z95.5 Presence of coronary angioplasty implant and graft; Z87.891 Personal history of nicotine dependence
CPT/HCPCS: 99285; 96374; 36415; 94640; 93005; 83880; 80053; 83690; 83735; 84484; 85025; 85610; 85730; 71046; 96361; J1940

== ENCOUNTER 2019-05-19 12:25 | Inpatient (IN) | payer MEDICARE ==
[2019-05-19] MEDS ORDERED: SODIUM CHLORIDE 0.9% 500 ML 500 ML IV STA (13:07)
--- NOTE | 2019-05-19 13:11 | ED ---
General Adult HPI - General Chief complaint: Abdominal Pain Stated complaint: SOB/abdominal pain Time Seen by Provider: 05/19/19 12:40 Source: patient, RN notes reviewed Mode of arrival: ambulatory Limitations: no limitations - History of Present Illness Initial comments: This is a 68-year-old male with a past medical history significant for cardiomyopathy and congestive heart failure. Patient states for the last month he has been having right upper quadrant abdominal pain which is coming and going. Patient does not notice any association with eating however he states he does have history of gallstones. Patient states the pain seems to be worse when he gets up and walks around. Patient states when he sits still it seems to be better. Patient denies any chest pain he states he has some short of breath which is typical for him not any worse with this pain. Patient denies any nausea vomiting. Patient denies any diarrhea. Patient denies any lower abdominal pain. Patient denies drinking. Patient denies any back pain. Patient denies any lightheadedness or dizziness. - Related Data Home Medications Medication Instructions Recorded Confirmed Allopurinol [Zyloprim] 300 mg PO DAILY PRN 09/30/17 05/19/19 Ascorbic Acid [Vitamin C] 500 mg PO DAILY 09/30/17 05/19/19 Aspirin 81 mg PO DAILY 09/30/17 05/19/19 Cyanocobalamin (Vitamin B-12) 1,000 mcg PO DAILY 09/30/17 05/19/19 [Vitamin B-12] Digoxin [Digitek] 125 mcg PO DAILY 09/30/17 05/19/19 Insulin Detemir [Levemir Flextouch] 40 units SQ HS 09/30/17 05/19/19 [place]-3S/Dha/Epa/Fish Oil [Fish 2 cap PO DAILY 09/30/17 05/19/19 Oil 1,000 mg Softgel] Sildenafil Citrate [Viagra] 100 mg PO ONCE PRN 09/30/17 05/19/19 Spironolactone [Aldactone] 12.5 mg PO DAILY 09/30/17 05/19/19 Carvedilol [Coreg] 6.25 mg PO BID 06/20/18 05/19/19 Lisinopril [Zestril] 5 mg PO BID 06/20/18 05/19/19 Vitamin D3(Unknown Dose) 1 tab PO DAILY 06/20/18 05/19/19 Acetaminophen Tab [Tylenol Tab] 1,000 mg PO Q6H PRN 04/28/19 05/19/19 Albuterol Inhaler [Ventolin Hfa 2 puff INHALATION RT-QID PRN 04/28/19 05/19/19 Inhaler] Budesonide/Formoterol Fumarate 2 puff INHALATION RT-BID 04/28/19 05/19/19 [Symbicort 160-4.5 Mcg Inhaler] Cetirizine HCl [Zyrtec] 10 mg PO DAILY 04/28/19 05/19/19 Fluticasone Nasal [place] [Flonase 1 spr EA NOSTRIL DAILY 04/28/19 05/19/19 Nasal [place]] Furosemide [Lasix] 20 - 40 mg PO DAILY 04/28/19 05/19/19 Magnesium(Unknown) 1 tab PO DAILY 04/28/19 05/19/19 Milk Thistle 150 mg PO DAILY 04/28/19 05/19/19 [place]-3 Fatty Acids/Fish Oil [Fish 3 cap PO HS 04/28/19 05/19/19 Oil 1,000 mg Softgel] [place] 500 mg PO DAILY 04/28/19 05/19/19 metFORMIN HCL 1,000 mg PO BID 04/28/19 05/19/19 Allergies Allergy/AdvReac Type Severity Reaction Status Date / Time [id number]-[id number] Reductase AdvReac MUSCLE PAIN Verified 05/19/19 13:52 Inhibitor Review of Systems ROS Statement: Those systems with pertinent positive or pertinent negative responses have been documented in the HPI. ROS Other: All systems not noted in ROS Statement are negative. Past Medical History Past Medical History: Atrial Fibrillation, Heart Failure, Diabetes Mellitus, Os teoarthritis (OA) Additional Past Medical History / Comment(s): CARDIOMYOPATHY, GOUT, AICD/PPM- last implantation 2009 History of Any Multi-Drug Resistant Organisms: None Reported Past Surgical History: Heart Catheterization, Orthopedic Surgery, Pacemaker Additional Past Surgical History / Comment(s): LEFT ANKLE, LEFT WRIST, AICD/PPM PLACEMENT, epidural shots in neck Past Anesthesia/Blood Transfusion Reactions: No Reported Reaction Additional Past Anesthesia/Blood Transfusion Reaction / Comment(s): "Spinal given and did not work with my ankle surgery" Type of Cardiac Device: Permanent Pacemaker, AICD Device Placement Date:: 2009 Past Psychological History: No Psychological Hx Reported Smoking Status: Former smoker Past Alcohol Use History: Occasional Past Drug Use History: None Reported - Past Family History Father Family Medical History: Congestive Heart Failure (CHF), Diabetes Mellitus Mother Family Medical History: Congestive Heart Failure (CHF) General Exam - General Exam Comments Initial Comments: GENERAL: Patient is well-developed and well-nourished. Patient is nontoxic and well- hydrated and is in mild distress. ENT: Neck is soft and supple. No significant lymphadenopathy is noted. Oropharynx is clear. Moist mucous membranes. Neck has full range of motion without eliciting any pain. EYES: The sclera were anicteric and conjunctiva were pink and moist. Extraocular movements were intact and pupils were equal round and reactive to light. Eyelids were unremarkable. PULMONARY: Unlabored respirations. Good breath sounds bilaterally. No audible rales rhonchi or wheezing was noted. CARDIOVASCULAR: There is a regular rate and rhythm without any murmurs gallops or rubs. ABDOMEN: Right upper quadrant abdominal pain no rebound SKIN: Skin is clear with no lesions or rashes and otherwise unremarkable. NEUROLOGIC: Patient is alert and oriented x3. Cranial nerves II through XII are grossly intact. Motor and sensory are also intact. Normal speech, volume and content. Symmetrical smile. MUSCULOSKELETAL: Normal extremities with adequate strength and full range of motion. No lower extremity swelling or edema. No calf tenderness. LYMPHATICS: No significant lymphadenopathy is noted PSYCHIATRIC: Normal psychiatric evaluation. Limitations: no limitations Course Vital Signs 05/19/19 05/19/19 12:37 14:51 Temperature 97.5 F L Pulse Rate 72 67 Respiratory 20 18 Rate Blood Pressure 91/67 106/70 O2 Sat by Pulse 99 99 Oximetry Medical Decision Making - Medical Decision Making EKG shows sinus rhythm with first-degree block at a rate of 60 bpm TX interval is 272 QRS is 102 QT interval 420 QTC is 455. Patient's EKG shows a PVC. Ultrasound showed no signs of acute cholecystitis however there were stones in the gallbladder. Ultrasound also showed a dilated intrahepatic ducts as well as dilated pancreatic duct. I spoke with Dr. Gay he agreed to admit the patient admitted the patient I wrote admitting orders I consulted Dr. Andres. - Lab Data Result diagrams: 05/19/19 12:56 05/19/19 12:56 Lab Results 05/19/19 05/19/1919 Range/Units 12:56 12:56 12:56 WBC 8.3 (3.8-10.6) k/uL RBC 4.66 (4.30-5.90) m/uL Hgb 13.5 (13.0-17.5) gm/dL Hct 41.0 (39.0-53.0) % MCV 88.0 (80.0-100.0) fL MCH 28.9 (25.0-35.0) pg MCHC 32.8 (31.0-37.0) g/dL RDW 17.3 H (11.5-15.5) % Plt Count 144 L (150-450) k/uL Neutrophils % 71 % Lymphocytes % 20 % Monocytes % 6 % Eosinophils % 2 % Basophils % 0 % Neutrophils # 5.9 (1.3-7.7) k/uL Lymphocytes # 1.7 (1.0-4.8) k/uL Monocytes # 0.5 (0-1.0) k/uL Eosinophils # 0.1 (0-0.7) k/uL Basophils # 0.0 (0-0.2) k/uL Anisocytosis Slight Sodium 137 (137-145) mmol/L Potassium 4.6 (3.5-5.1) mmol/L Chloride 96 L (98-107) mmol/L Carbon Dioxide 30 (22-30) mmol/L Anion Gap 11 mmol/L BUN 31 H (9-20) mg/dL Creatinine 1.28 H (0.66-1.25) mg/dL Est GFR (CKD-EPI)AfAm 67 (>60 ml/min/1.73 sqM) Est GFR (CKD-EPI)NonAf 58 (>60 ml/min/1.73 sqM) Glucose 105 H (74-99) mg/dL Calcium 9.9 (8.4-10.2) mg/dL Total Bilirubin 1.8 H (0.2-1.3) mg/dL AST 37 (17-59) U/L ALT 24 (21-72) U/L Alkaline Phosphatase 55 (38-126) U/L NT-Pro-B Natriuret Pep 7380 pg/mL Total Protein 7.0 (6.3-8.2) g/dL Albumin 4.5 (3.5-5.0) g/dL Amylase 46 (30-110) U/L Lipase 147 (23-300) U/L Disposition Clinical Impression: Right upper quadrant abdominal pain, Dilated pancreatic duct Disposition: ADMITTED IP TO THIS HOSP Referrals: Km Hawthorne DO [Primary Care Provider] - 1-2 days Time of Disposition: 15:53
[2019-05-19 13:33] LABS: Anisocytosis Slight; Basophils % (A) 0 %; Eosinophils # (A) 0.1 k/uL (0-0.7); Eosinophils % (A) 2 %; HGB 13.5 gm/dL (13.0-17.5); Lymphocytes # (A) 1.7 k/uL (1.0-4.8); Lymphocytes % (A) 20 %; MCH 28.9 pg (25.0-35.0); MCHC 32.8 g/dL (31.0-37.0); Mean Platelet Volume 8.9; Monocytes # (A) 0.5 k/uL (0-1.0); Monocytes % (A) 6 %; Neutrophils # (A) 5.9 k/uL (1.3-7.7); Neutrophils % (A) 71 %; Platelet Count 144 k/uL (150-450); RBC 4.66 m/uL (4.30-5.90); RDW 17.3 % (11.5-15.5); WBC 8.3 k/uL (3.8-10.6)
[2019-05-19 13:41] LABS: Albumin 4.5 g/dL (3.5-5.0); Calcium 9.9 mg/dL (8.4-10.2); Potassium 4.6 mmol/L (3.5-5.1); Total Bilirubin 1.8 mg/dL (0.2-1.3)
--- NOTE | 2019-05-19 13:45 | XR ---
EXAMINATION TYPE: XR chest 2V DATE OF EXAM: 05/19/2019 COMPARISON: 04/28/2019 HISTORY: Difficulty breathing TECHNIQUE: Frontal and lateral views of the chest are obtained. FINDINGS: Trace right pleural effusion remains with new trace left pleural effusion. Single lead car diac defibrillator is unchanged as well as upper limits normal size of the cardiomediastinal silhouet te. No focal consolidation, pleural effusion or pneumothorax. Osseous structures appear intact. IMPRESSION: Trace bilateral pleural effusions, otherwise no acute cardiopulmonary process.
--- NOTE | 2019-05-19 14:41 | US ---
EXAMINATION TYPE: US gallbladder DATE OF EXAM: 05/19/2019 COMPARISON: NONE CLINICAL HISTORY: Pain. RUQ pain. Patient states having a history of gall stones seen on CT from yea rs ago. EXAM MEASUREMENTS: Liver Length: 23.0 cm Gallbladder Wall: 0.2 cm CBD: 0.5 cm Right Kidney: 10.9 x 4.6 x 5.7 cm Pancreas: Main pancreatic duct- 3.3 mm. Head not well visualized Liver: Appears enlarged and coarse. Mild intrahepatic biliary ductal dilatation throughout. Multipl e cystic appearing lesions visualized. Largest measured. 1- mid/left - 2.5 x 2.8 x 2.0 cm. 2- left - 2.0 x 1.8 x 1.2 cm Gallbladder: There are 2 mobile echogenic foci seen, largest = 0.6 cm. Fold seen in fundal region Evidence for sonographic Rojo's sign: neg CBD: wnl Right Kidney: wnl IMPRESSION: 1. Mildly dilated main pancreatic duct. Further evaluation is recommended as mild intrahepatic biliar y ductal dilatation is also seen. Evaluation for pancreatic mass is recommended with MRCP with and wi thout contrast. Pancreatic head is not well visualized on ultrasound. 2. Cholelithiasis without sonographic evidence of acute cholecystitis. 3. Hepatomegaly and mild coarsened echotexture that can be seen in hepatic steatosis or other hepatoc ellular diseases.
[2019-05-19] MEDS ORDERED: HYDROmorphone 1 MG/ML 1 ML SYRINGE IVP STA (15:37)
[2019-05-19] MEDS ORDERED: ONDANSETRON 4 MG/2 ML VIAL IVP STA (15:37)
[2019-05-19] MEDS ORDERED: SODIUM CHLORIDE 0.9% 1,000 ML IV ONE (15:53)
[2019-05-19] MEDS ORDERED: HYDROmorphone 0.5 MG/0.5 ML SYRINGE IVP PRN (15:54)
[2019-05-19] MEDS ORDERED: TRIMETHOBENZAMIDE 300 MG CAP PO PRN (17:10)
[2019-05-19 17:14] LABS: Glucose,Whole Blood 93 mg/dL (75-99)
[2019-05-19 17:31] VITALS: BMI 24.3
[2019-05-19] MEDS ORDERED: TRIMETHOBENZAMIDE 100 MG/ML 2 ML VIAL IM PRN (17:35)
[2019-05-19] MEDS ORDERED: ACETAMINOPHEN TAB 500 MG TAB PO PRN (18:31)
[2019-05-19] MEDS ORDERED: ALBUTEROL NEBULIZED 2.5 MG/3 ML INHALATION PRN (18:31)
[2019-05-19] MEDS: SYMBICORT 160-4.5 MCG INHALER INHALATION SCH (19:57)
[2019-05-19 20:11] LABS: Glucose,Whole Blood 124 mg/dL (75-99)
[2019-05-19] MEDS ORDERED: ALLOPURINOL 300 MG TAB PO PRN (20:13)
[2019-05-19] MEDS: INSULIN ASPART (NovoLOG) 100 UNIT/ML VIAL SQ SCH (20:14)
[2019-05-19] MEDS ORDERED: ALPRAZolam 0.25 MG TAB PO PRN (20:16)
[2019-05-19] MEDS ORDERED: TEMAZEPAM 15 MG CAP PO PRN (20:16)
[2019-05-19] MEDS: ONDANSETRON 4 MG/2 ML VIAL IVP PRN (20:52)
[2019-05-19] MEDS: PANTOPRAZOLE 40 MG/10 ML VIAL IVP SCH (20:57)
[2019-05-19] MEDS ORDERED: NON-FORMULARY DRUG (Omega-3 Fatty Acids/Fish Oil [Fish Oil 1,000 Mg Softgel] 3 CAP) PO SCH (21:00)
[2019-05-19] MEDS: CARVEDILOL 6.25 MG TAB PO SCH (21:02)
[2019-05-19] MEDS: HEPARIN SODIUM,PORCINE 5,000 UNIT/ML 1 ML VIAL SQ SCH (21:03)
[2019-05-19] MEDS: INSULIN DETEMIR (LEVEMIR) 100 UNIT/ML SYR SQ SCH (21:03)
[2019-05-19] MEDS: metFORMIN 500 MG TAB PO SCH (22:31)
[2019-05-19] MEDS: LISINOPRIL 5 MG TAB PO SCH (22:31)
[2019-05-19 22:46] LABS: Appearance,Urine Clear (Clear); Bilirubin,Urine Negative (Negative); Blood,Urine Negative (Negative); Color,Urine Yellow; Glucose,Urine (UA) Negative (Negative); Hyaline Casts,Urine 4 /lpf (0-2); Ketones,Urine Trace (Negative); Leukocyte Esterase,Urine Negative (Negative); Mucus,Urine Few /hpf; Nitrite,Urine Negative (Negative); PH, Urine 5.5 (5.0-8.0); Protein,Urine 2+ (Negative); Urobilinogen,Urine <2.0 mg/dL (<2.0); WBC,Urine 1 /hpf (0-5)
--- NOTE | 2019-05-20 00:45 | HP ---
HISTORY AND PHYSICAL DATE OF SERVICE: 05/19/2019 CHIEF COMPLAINT: Right upper quadrant abdominal pain. HISTORY OF PRESENT ILLNESS: This 68-year-old gentleman with a past medical history of multiple medical problems including history of congestive heart failure with possible cardiomyopathy with chronic systolic dysfunction, history atrial fibrillation, history of diabetes, DJD, history of cardiomyopathy, gout, AICD implantation in 2009, history of cardiac catheterization, remote history of nicotine dependence, being followed by Dr. Km Hawthorne in the outpatient setting was complaining of right upper quadrant abdominal pain for the last several days. The pain was coming and going according to him. Not any particular association with eating was noted. Because of increasing difficulty, the patient came to [facility] and was admitted for further evaluation and treatment. Patient also complaining of shortness of breath. The patient underwent ultrasound of the abdomen in the ER that showed mildly dilated pancreatic diet and mild intrahepatic biliary ductal dilatation was also noted. The patient also had cholelithiasis without any sonographic evidence of cholecystitis, hepatomegaly and course was also noted. The patient admitted for further evaluation and treatment. There is no history of fever, rigors or chills. No history of headache, loss of consciousness, no chest pain, palpitations or hematochezia or melena at this time. PAST MEDICAL HISTORY: History of atrial fibrillation, history of CHF, cardiomyopathy, chronic systolic dysfunction EF 20 to 25% previously, diabetes, history of DJD, history of gout. Cardiac catheterization. MEDICATIONS: Home medications are reviewed and include: 1. Metformin 1000 mg p.o. b.i.d. 2. Vitamin D3 1 tablet p.o. daily. 3. Aldactone 12.5 mg p.o. 5. Fish oil 2 capsules p.o. daily. 6. Milk thistle 150 mg p.o. daily. 7. Magnesium 1 tablet p.o. daily. 8. Zestril 5 mg p.o. b.i.d. 9. Lasix 20-40 mg p.o. daily. 10.Flonase 1 spray daily. 11.Digitek 125 mcg p.o. daily. 12.Vitamin B12 1000 mcg daily. 14.Coreg 6.25 mg b.i.d. 15.Symbicort 160/4.5 two puffs b.i.d. 16.Aspirin 81 mg. 17.Vitamin C 500 mg p.o. daily. 18.Zyloprim 300 mg daily p.r.n. 19.Ventolin HFA 2 puffs q.i.d. p.r.n. 20.Tylenol 1000 mg p.o. q.6h p.r.n. 21.Viagra 100 mg p.o. p.r.n. 22.Fish oil 1 g 3 tabs q.h.s. 23.Levemir 40 units subcu q.h.s. ALLERGIES: STATINS. FAMILY HISTORY: History of atrial fibrillation, AICD, CHF, COPD, diabetes, hypertension, pneumonia in the family. SOCIAL HISTORY: Previous history of smoking. Occasional alcohol intake. REVIEW OF SYSTEMS: ENT: No diminished vision. No diminished hearing. CARDIOVASCULAR as mentioned earlier. RESPIRATORY: As mentioned earlier. GASTROINTESTINAL: No nausea or vomiting. no dysuria or hematuria. CENTRAL NERVOUS SYSTEM: No numbness or weakness. ALLERGY/IMMUNOLOGY: No asthma or hayfever. MUSCULOSKELETAL as mentioned earlier. HEMATOLOGY/ONCOLOGY: No history of anemia. ENDOCRINE: Diabetes mellitus. CONSTITUTIONAL: As mentioned earlier. DERMATOLOGY negative. RHEUMATOLOGY: Negative. PSYCHIATRY: As mentioned earlier. PHYSICAL EXAM: Patient is alert, oriented x3. Pulse is 73. Blood pressure 98/60, respiration 18, temp 97.8, pulse ox 97% on room air. HEENT are conjunctivae normal. Oral mucosa moist. NECK is no jugular venous distention. No carotid bruit. No lymph node enlargement. CARDIOVASCULAR S1, S2 muffled. No S3, no S4. No murmur, no thrills. RESPIRATIONS: Breath sounds diminished in the bases. No rhonchi. No crackles. ABDOMEN: Soft. Mild diffuse discomfort in the right hypochondrium. No tenderness. No guarding. No rigidity. No mass palpable. LEGS: No edema. No swelling. NERVOUS SYSTEM: Higher functions as mentioned earlier. Moves all four limbs. No focal deficits. LYMPHATICS: No lymph nodes palpable in the neck, axillae or groin. SKIN: No ulcer. No rash. No bleeding. JOINTS: No active deforming arthropathy. LABS: Platelets 144. Sodium 130, potassium 4.2, creatinine is 1.28 and total bilirubin is 1.8. ASSESSMENT: 1. Right upper quadrant abdominal pain possibly cholelithiasis. 2. Mildly dilated main pancreatic duct and intrahepatic biliary duct of unknown significance in the ultrasound. 3. Hepatomegaly in the ultrasound. 4. Congestive heart failure with chronic systolic dysfunction with possibly cardiomyopathy with ejection fraction 20-25%. 5. Increased creatinine with possibly acute renal failure prerenal acute tubular necrosis. 6. Thrombocytopenia mild. 7. History atrial fibrillation. 8. History of diabetes type 2. 9. History of degenerative joint disease. 10.History of cardiomyopathy. 11.History of gout. 12.History AICD. 13.History of pacemaker. 14.Remote history of nicotine dependence. RECOMMENDATIONS AND DISCUSSION: In this 68-year-old gentleman who presented with multiple complex medical issues, we will monitor the patient closely, continue the current medications, management and symptomatic treatment. I recommend a CT scan of the abdomen pelvis and chest without any IV contrast just oral contrast. Otherwise symptomatic treatment of the pain. I would recommend resume the home medications and also monitor fluid and electrolyte balance closely. Cardiology consultation. I would also recommend surgical evaluation. Monitor blood sugars closely. Otherwise, repeat labs. Prognosis guarded because of multiple complex medical issues. I would also recommend Gastroenterology consultation. Exact significance of the dilated pancreatic duct is unknown at this time. The patient will require further evaluation subsequently later. Otherwise the prognosis guarded because of multiple complex medical issues. Further recommendations to follow. A copy of dictation being forwarded to Dr. Km Hawthorne who is the primary care physician. Discussed with the family who understands and agrees. MMANGYL / YADIELN: [id number] / VIANNEY
[2019-05-20] MEDS: IOPAMIDOL-300 CONTRAST 30 ML VIAL (ORAL USE) PO PRN ×2 (06:06→06:57)
[2019-05-20] MEDS: ONDANSETRON 4 MG/2 ML VIAL IVP PRN (06:08)
[2019-05-20 07:07] LABS: Basophils % (A) 0 %; Eosinophils # (A) 0.1 k/uL (0-0.7); Eosinophils % (A) 2 %; HCT 39.7 % (39.0-53.0); HGB 12.7 gm/dL (13.0-17.5); Lymphocytes # (A) 2.1 k/uL (1.0-4.8); Lymphocytes % (A) 30 %; MCV 87.3 fL (80.0-100.0); Mean Platelet Volume 8.8; Monocytes # (A) 0.4 k/uL (0-1.0); Monocytes % (A) 6 %; Neutrophils # (A) 4.3 k/uL (1.3-7.7); Neutrophils % (A) 61 %; Platelet Count 134 k/uL (150-450); RBC 4.55 m/uL (4.30-5.90); RDW 15.9 % (11.5-15.5)
[2019-05-20 07:16] LABS: Glucose,Whole Blood 91 mg/dL (75-99)
[2019-05-20 07:17] LABS: Calcium 9.4 mg/dL (8.4-10.2); Potassium 4.5 mmol/L (3.5-5.1)
[2019-05-20] MEDS ORDERED: FUROSEMIDE 10 MG/ML 4 ML VIAL IV STA (07:55)
[2019-05-20] MEDS: PANTOPRAZOLE 40 MG/10 ML VIAL IVP SCH ×2 (08:15→21:08)
--- NOTE | 2019-05-20 08:29 | CT ---
EXAMINATION TYPE: CT ChestAbdPelvis wo con DATE OF EXAM: 05/20/2019 INDICATION: RUQ pain, Gallstones, dilated pancreatic duct COMPARISON: None CT DLP: 954.40 mGycm CONTRAST: Performed with Oral Contrast TECHNIQUE: Axial images at 5 mm thick sections. Reconstructed images in the coronal plane. Delayed images through the kidneys. FINDINGS: CT CHEST: Portion of the thyroid visualized is normal. No suspicious lung nodules or lung infiltrates are evident. There is a small right pleural effusion. No enlarged mediastinal or hilar adenopathy is evident. There are multiple small lymph nodes in the m ediastinum. The ascending aorta diameter at the level of the main pulmonary artery is 3.4 cm. The main pulmonary artery diameter at the bifurcation is 3.[address] ABDOMEN: Liver: There are scattered rounded areas of hypodensity within the liver which could be related to cy sts. The larger cysts were identified on the ultrasound of 05/19/2019. The expected biliary dilatation is not appreciated on CT examination. Spleen: Normal Pancreas: Normal pancreatic duct dilatation is not evident. No obvious mass on the nonintravenous con trast CT which may not visualize all pancreatic masses. Adrenal glands: The adrenal glands are normal. Gallbladder: There are a few tiny gallstones present. Kidneys: Right kidney appears normal in position. Left kidney appears to be absent. No masses are baltazar dent. No hydronephrosis is present. No cysts are present. Delayed images were obtained through the kidneys, which remain unremarkable. Aorta: Vascular calcification is within the aorta. Inferior vena cava: Normal. CT PELVIS: Loops of bowel within the abdomen and pelvis are normal. There are multiple diverticuli within th e sigmoid colon. Contrast extends the proximal sigmoid colon. There is incomplete distention of the s igmoid colon. This would make evaluation for neoplasm difficult. Appendix: Normal as visualized. Urinary bladder: Normal. Genitourinary structures: Prostate is prominent. Osseous structures: No suspicious lytic or sclerotic lesions. Graft small amount of free fluid is wit hin the pelvis which is abnormal in a male. IMPRESSIONS: 1. Small right pleural effusion. 2. Small amount of free fluid within the pelvis. 3. Hepatic cysts. 4. Diverticulosis without acute diverticulitis. 5. Biliary dilatation and pancreatic mass are not identified on this non-IV contrast study. 6. Cholelithiasis
[2019-05-20] MEDS: SYMBICORT 160-4.5 MCG INHALER INHALATION SCH ×2 (08:37→20:20)
[2019-05-20] MEDS ORDERED: FUROSEMIDE 20 MG TAB PO SCH (09:00)
[2019-05-20] MEDS ORDERED: FISH OIL PO SCH (09:00)
[2019-05-20] MEDS ORDERED: MAGNESIUM PO SCH (09:00)
[2019-05-20] MEDS ORDERED: OMEGA PO SCH (09:00)
[2019-05-20] MEDS ORDERED: FUROSEMIDE 40 MG TAB PO SCH (09:00)
[2019-05-20] MEDS ORDERED: DHA PO SCH (09:00)
[2019-05-20] MEDS ORDERED: EPA PO SCH (09:00)
[2019-05-20] MEDS: INSULIN ASPART (NovoLOG) 100 UNIT/ML VIAL SQ SCH ×4 (09:31→21:08)
[2019-05-20] MEDS: FLUTICASONE 50MCG/SPRAY NASAL 16GM EA NOSTRIL SCH (09:32)
[2019-05-20] MEDS: ASCORBIC ACID 500 MG TAB PO SCH (09:32)
[2019-05-20] MEDS: CYANOCOBALAMIN 500 MCG TAB PO SCH (09:32)
[2019-05-20] MEDS: LORATADINE 10 MG TAB PO SCH (09:33)
[2019-05-20] MEDS: metFORMIN 500 MG TAB PO SCH ×2 (09:33→21:08)
--- NOTE | 2019-05-20 09:50 | CONS ---
CONSULTATION Jerome Peterson is a 68-year-old gentleman with a known history of nonischemic cardiomyopathy who was seen by me in the past. He sees a wireless sales associate in the [facility]. He has a ICD and he has generally been stable. He is here with abdominal discomfort and right upper quadrant pain and there is a question of some gallbladder pathology. A CT scan is being performed and also there is a question of a pancreatic mass which is being further evaluated. He is resting comfortably without symptoms. I was asked to see him because of his known history of chronic systolic heart failure and ICD. PAST MEDICAL HISTORY: 1. Remarkable for nonischemic cardiomyopathy with an ICD that has been placed. Last one was a few years ago. He sees Dr. Ontiveros out of [facility]. 2. Past history of alcoholism. 3. History of hypertension. 4. History of atrial fibrillation. 5. History of ICDs. 6. Patient is status post ankle surgery and also has had some orthopedic surgery. 7. Type 2 diabetes mellitus. MEDICATIONS: At home include: Metformin 1000 mg b.i.d., lisinopril 5 mg b.i.d., Lasix 20 mg daily, digoxin 125 mcg daily, Coreg 6.25 mg b.i.d. aspirin and he also takes he also takes albuterol inhaler and Levemir insulin. ALLERGIES: THE PATIENT IS ALLERGIC TO STATIN AGENTS. PHYSICAL EXAMINATION: Blood pressure is 108/70, pulse rate is 60 per minute and regular. HEENT unremarkable. Fundus was not examined by me. NECK: Supple. I cannot appreciate any significant JVD. There is no carotid bruit. HEART exam reveals S1, S2 heard normally, short systolic murmur is audible at left sternal border. LUNGS: Clear with fine basal rales over on both sides. ABDOMEN is soft. There is some mild tenderness. Lower extremities with diminished pulses. Central nervous system is normal. EKG revealed sinus mechanism, LVH by voltage criteria, nonspecific ST changes. LAB DATA: Reveals elevated BNP in the range of 7000. IMPRESSION: 1. Chronic systolic heart failure secondary to nonischemic cardiomyopathy. 2. Abdominal pain. 3. Rule out any pancreatic and bile or gallbladder pathology. 4. Type 2 diabetes. 5. History of nonischemic cardiomyopathy. RECOMMENDATION: I am recommending 1 dose of IV Lasix, decrease fluids to KVO, put him on Lasix 40 mg every morning. Repeat an echocardiogram today. I discussed my thoughts in detail with the patient and . Thank you very much for the consult. RACHEL / IJN: [id number] /
[2019-05-20] MEDS: SPIRONOLACTONE 25 MG TAB PO SCH (10:06)
[2019-05-20] MEDS: LISINOPRIL 5 MG TAB PO SCH ×2 (10:07→21:08)
[2019-05-20] MEDS: ASPIRIN 81 MG PO SCH (10:07)
[2019-05-20] MEDS: CARVEDILOL 6.25 MG TAB PO SCH ×2 (10:07→17:46)
[2019-05-20] MEDS: HEPARIN SODIUM,PORCINE 5,000 UNIT/ML 1 ML VIAL SQ SCH ×2 (10:07→21:08)
[2019-05-20] MEDS: DIGOXIN 125 MCG TAB PO SCH (10:07)
[2019-05-20] MEDS: SODIUM CHLORIDE 0.9% 1,000 ML IV SCH (10:08)
--- NOTE | 2019-05-20 10:57 | P.GSCN ---
History of Present Illness Consult date: 05/20/19 Reason for Consult: Right upper quadrant pain History of present illness: This is a 68-year-old male who was admitted to the hospital complaints of epigastric and right upper quadrant pain. Patient ultrasound performed which showed evidence of cholelithiasis and a dilated pancreatic duct. Patient has a bilirubin 1.8. Patient states that he is known about gallstones for several years. Past Medical History Past Medical History: Atrial Fibrillation, Heart Failure, Diabetes Mellitus, Osteoarthritis (OA) Additional Past Medical History / Comment(s): CARDIOMYOPATHY, GOUT, AICD/PPM- last implantation 2009 History of Any Multi-Drug Resistant Organisms: None Reported Past Surgical History: Heart Catheterization, Orthopedic Surgery, Pacemaker Additional Past Surgical History / Comment(s): LEFT ANKLE, LEFT WRIST, AICD/PPM PLACEMENT, epidural shots in neck Past Anesthesia/Blood Transfusion Reactions: No Reported Reaction Additional Past Anesthesia/Blood Transfusion Reaction / Comm: "Spinal given and did not work with my ankle surgery" Type of Cardiac Device: Permanent Pacemaker, AICD Device Placement Date:: 2009 Past Psychological History: No Psychological Hx Reported Smoking Status: Former smoker Past Alcohol Use History: Occasional Past Drug Use History: None Reported - Past Family History Father Family Medical History: AFIB, AICD/Pacemaker, Congestive Heart Failure (CHF), COPD, Diabetes Mellitus, Hypertension, Pneumonia Mother Family Medical History: Congestive Heart Failure (CHF) Medications and Allergies Home Medications Medication Instructions Recorded Confirmed Type Allopurinol [Zyloprim] 300 mg PO DAILY PRN 09/30/17 05/19/19 History Ascorbic Acid [Vitamin C] 500 mg PO DAILY 09/30/17 05/19/19 History Aspirin 81 mg PO DAILY 09/30/17 05/19/19 History Cyanocobalamin (Vitamin B-12) 1,000 mcg PO DAILY 09/30/17 05/19/19 History [Vitamin B-12] Digoxin [Digitek] 125 mcg PO DAILY 09/30/17 05/19/19 History Insulin Detemir [Levemir Flextouch] 40 units SQ HS 09/30/17 05/19/19 History [place]-3S/Dha/Epa/Fish Oil [Fish 2 cap PO DAILY 09/30/17 05/19/19 History Oil 1,000 mg Softgel] Sildenafil Citrate [Viagra] 100 mg PO ONCE PRN 09/30/17 05/19/19 History Spironolactone [Aldactone] 12.5 mg PO DAILY 09/30/17 05/19/19 History Carvedilol [Coreg] 6.25 mg PO BID 06/20/18 05/19/19 History Lisinopril [Zestril] 5 mg PO BID 06/20/18 05/19/19 History Vitamin D3(Unknown Dose) 1 tab PO DAILY 06/20/18 05/19/19 History Acetaminophen Tab [Tylenol Tab] 1,000 mg PO Q6H PRN 04/28/19 05/19/19 History Albuterol Inhaler [Ventolin Hfa 2 puff INHALATION RT-QID PRN 04/28/19 05/19/19 History Inhaler] Budesonide/Formoterol Fumarate 2 puff INHALATION RT-BID 04/28/19 05/19/19 History [Symbicort 160-4.5 Mcg Inhaler] Cetirizine HCl [Zyrtec] 10 mg PO DAILY 04/28/19 05/19/19 History Fluticasone Nasal [place] [Flonase 1 spr EA NOSTRIL DAILY 04/28/19 05/19/19 History Nasal [place]] Furosemide [Lasix] 20 - 40 mg PO DAILY 04/28/19 05/19/19 History Magnesium(Unknown) 1 tab PO DAILY 04/28/19 05/19/19 History Milk Thistle 150 mg PO DAILY 04/28/19 05/19/19 History [place]-3 Fatty Acids/Fish Oil [Fish 3 cap PO HS 04/28/19 05/19/19 History Oil 1,000 mg Softgel] Saw [place] 500 mg PO DAILY 04/28/19 05/19/19 History metFORMIN HCL 1,000 mg PO BID 04/28/19 05/19/19 History Allergies Allergy/AdvReac Type Severity Reaction Status Date / Time [id number] Reductase AdvReac MUSCLE PAIN Verified 05/19/19 13:52 Inhibitor Surgical - Exam Vital Signs Temp Pulse Resp BP Pulse Ox 97.5 F L 72 20 91/67 99 05/19/19 12:37 05/19/19 12:37 05/19/19 12:37 05/19/19 12:37 05/19/19 12:37 - General well developed, well nourished, no distress - Eyes PERRL - ENT normal pinna - Neck no masses - Respiratory normal expansion - Cardiovascular Rhythm: regular - Abdomen Mild epigastric tenderness. There is no rebound or guarding. Abdomen: soft Results - Labs 05/20/19 06:16 05/20/19 06:16 Abnormal Lab Results - Last 24 Hours (Table) 05/19/19 05/19/19 05/19/19 Range/Units 12:56 12:56 20:09 Hgb (13.0-17.5) gm/dL RDW 17.3 H (11.5-15.5) % Plt Count 144 L (150-450) k/uL Sodium (137-145) mmol/L Chloride 96 L (98-107) mmol/L BUN 31 H (9-20) mg/dL Creatinine 1.28 H (0.66-1.25) mg/dL Glucose 105 H (74-99) mg/dL POC Glucose (mg/dL) 124 H (75-99) mg/dL Total Bilirubin 1.8 H (0.2-1.3) mg/dL Urine Protein (Negative) Urine Ketones (Negative) Hyaline Casts (0-2) /lpf Urine Mucus (None) /hpf 05/19/19 05/20/19 05/20/19 Range/Units 22:15 06:16 06:16 Hgb 12.7 L (13.0-17.5) gm/dL RDW 15.9 H (11.5-15.5) % Plt Count 134 L (150-450) k/uL Sodium 136 L (137-145) mmol/L Chloride 97 L (98-107) mmol/L BUN 28 H (9-20) mg/dL Creatinine (0.66-1.25) mg/dL Glucose (74-99) mg/dL POC Glucose (mg/dL) (75-99) mg/dL Total Bilirubin (0.2-1.3) mg/dL Urine Protein 2+ H (Negative) Urine Ketones Trace H (Negative) Hyaline Casts 4 H (0-2) /lpf Urine Mucus Few H (None) /hpf Diabetes panel 05/19/19 05/20/19 Range/Units 12:56 06:16 Sodium 137 136 L (137-145) mmol/L Potassium 4.6 4.5 (3.5-5.1) mmol/L Chloride 96 L 97 L (98-107) mmol/L Carbon Dioxide 30 28 (22-30) mmol/L BUN 31 H 28 H (9-20) mg/dL Creatinine 1.28 H 1.12 (0.66-1.25) mg/dL Glucose 105 H 80 (74-99) mg/dL Calcium 9.9 9.4 (8.4-10.2) mg/dL AST 37 (17-59) U/L ALT 24 (21-72) U/L Alkaline Phosphatase 55 (38-126) U/L Total Protein 7.0 (6.3-8.2) g/dL Albumin 4.5 (3.5-5.0) g/dL Calcium panel 05/19/19 05/20/19 Range/Units 12:56 06:16 Calcium 9.9 9.4 (8.4-10.2) mg/dL Albumin 4.5 (3.5-5.0) g/dL Pituitary panel 05/19/19 05/20/19 Range/Units 12:56 06:16 Sodium 137 136 L (137-145) mmol/L Potassium 4.6 4.5 (3.5-5.1) mmol/L Chloride 96 L 97 L (98-107) mmol/L Carbon Dioxide 30 28 (22-30) mmol/L BUN 31 H 28 H (9-20) mg/dL Creatinine 1.28 H 1.12 (0.66-1.25) mg/dL Glucose 105 H 80 (74-99) mg/dL Calcium 9.9 9.4 (8.4-10.2) mg/dL Adrenal panel 05/19/19 05/20/19 Range/Units 12:56 06:16 Sodium 137 136 L (137-145) mmol/L Potassium 4.6 4.5 (3.5-5.1) mmol/L Chloride 96 L 97 L (98-107) mmol/L Carbon Dioxide 30 28 (22-30) mmol/L BUN 31 H 28 H (9-20) mg/dL Creatinine 1.28 H 1.12 (0.66-1.25) mg/dL Glucose 105 H 80 (74-99) mg/dL Calcium 9.9 9.4 (8.4-10.2) mg/dL Total Bilirubin 1.8 H (0.2-1.3) mg/dL AST 37 (17-59) U/L ALT 24 (21-72) U/L Alkaline Phosphatase 55 (38-126) U/L Total Protein 7.0 (6.3-8.2) g/dL Albumin 4.5 (3.5-5.0) g/dL Assessment and Plan Assessment: Cholelithiasis Elevated bilirubin The patient will be evaluated by GI. The patient has a previous pacemaker he will not be able to have an MRCP. We will plan for laparoscopic cholecystectomy once he is medically cleared. He will have his repeat liver flush test performed in the a.m.
[2019-05-20 11:29] LABS: Glucose,Whole Blood 77 mg/dL (75-99)
--- NOTE | 2019-05-20 13:39 | ECHOF ---
Referral Reason:sob MEASUREMENTS -------- HEIGHT: 188.0 cm WEIGHT: 94.8 kg BP: IVSd: 1.0 cm (0.6 - 1.1) LVIDd: 6.7 cm (3.9 - 5.3) LVPWd: 1.1 cm (0.6 - 1.1) EDV(Teich): 228 ml IVSs: 1.1 cm LVIDs: 6.3 cm LVPWs: 1.2 cm %IVS Thck: 7 % ESV(Teich): 205 ml EF(Teich): 10 % %FS: 5 % SV(Teich): 23 ml LA Diam: 4.7 cm (2.7 - 3.8) RVIDd: 3.1 cm (< 3.3) LALs A4C: 6.3 cm LAAs A4C: 28.0 cm LAESV A-L A4C: 105 ml LAESV MOD A4C: 97 ml LALs A2C: 6.5 cm LAAs A2C: 34.0 cm LAESV A-L A2C: 152 ml LAESV MOD A2C: 135 ml LAESV(A-L): 128 ml LAESV Index (A-L): 57.48 ml/m Ao Diam: 3.1 cm (2.0 - 3.7) LA Diam: 3.8 cm (2.7 - 3.8) AV Cusp: 1.8 cm (1.5 - 2.6) EPSS: 2.9 cm MV E Alvin: 0.89 m/s MV DecT: 130 ms MV Dec [place]: 6.8 m/s MV A Alvin: 0.22 m/s MV E/A Ratio: 4.03 MV PHT: 38 ms AV Vmax: 0.85 m/s AV maxP.89 mmHg AR Vmax: 3.96 m/s AR maxP.85 mmHg AR PHT: 465 ms AR Dec Time: 1605 ms AR Dec [place]: 2.5 m/s TR Vmax: 3.42 m/s TR maxP.92 mmHg RAP: 5.00 mmHg RVSP: 51.92 mmHg MV EF SLOPE: 96.04 mm/s (70 - 150) MV EXCURSION: 18.39 mm (> 18.000) FINDINGS -------- Paced rhythm. This was a technically good study. The left ventricular size is normal. Left ventricular wall thickness is normal. There is severe g lobal hypokinesis of LV . Overall left ventricular systolic function is severely impaired with, an EF < 20%. Restrictive LV filling pattern, consistent with elevated LA pressure 50.15. The right ventricle is normal in size. The left atrium is markedly dilated. LA is severely dilated >40 ml/m2 The right atrial size is normal. Interatrial and interventricular septum intact. There is mild aortic valve sclerosis. Trace to mild aortic regurgitation. Mild mitral annular calcification present. Mild mitral regurgitation is present. Mild tricuspid regurgitation present. There is moderate pulmonary hypertension. The right ventric ular systolic pressure, as measured by Doppler, is 51.92mmHg. There is no pulmonic regurgitation present. The aortic root size is normal. There is no pericardial effusion. CONCLUSIONS -------- 1. Paced rhythm. 2. This was a technically good study. 3. The left ventricular size is normal. 4. Left ventricular wall thickness is normal. 5. There is severe global hypokinesis of LV . 6. Overall left ventricular systolic function is severely impaired with, an EF < 20%. 7. The right ventricle is normal in size. 8. The left atrium is markedly dilated. 9. LA is severely dilated >40 ml/m2 10. The right atrial size is normal. 11. Interatrial and interventricular septum intact. 12. There is mild aortic valve sclerosis. 13. Trace to mild aortic regurgitation. 14. Mild mitral annular calcification present. 15. Mild mitral regurgitation is present. 16. Mild tricuspid regurgitation present. 17. There is moderate pulmonary hypertension. 18. The right ventricular systolic pressure, as measured by Doppler, is 51.92mmHg. 19. There is no pulmonic regurgitation present. 20. The aortic root size is normal. 21. There is no pericardial effusion. DOCTOR ASSISTANT: Kim Cross RDCS
[2019-05-20 16:41] LABS: Glucose,Whole Blood 112 mg/dL (75-99)
--- NOTE | 2019-05-20 17:45 | CT ---
CT scan of the pancreas. History right upper quadrant pain. Comparison today. TECHNIQUE: Multiple axial sections were obtained from the diaphragm to the iliac crests without and with IV cont rast. The contrast was Isovue 100 mL. There is some oral contrast from previous exam. There is bilateral pleural effusion and larger on the right side. There is no pericardial effusion. There are multiple low-density circumscribed rounded foci in the liver consistent with multiple cysts . These measure up to 2.7 cm. The bile ducts are not dilated. There are multiple small calcified gall stones. There is some redundancy of the second part of the duodenum. I see no pancreatic mass. Pancre atic duct is not dilated. Common bile duct is not dilated. Left kidney is absent. The right kidneys show satisfactory contrast opacification. There is no hydron ephrosis. There is no sign of ascites. There is no sign of bowel obstruction. There is mild right dale e perinephric edema. There is no evidence of right renal mass. I see no bony destructive process. IMPRESSION: No evidence of discrete pancreatic abnormality. Redundant duodenum. Cholelithiasis. Multiple small he patic cysts. No dilated ducts. There is contrast reflux into the inferior vena cava that could relate to congestive heart failure. T here is mild bilateral pleural effusions. Mild right side perinephric edema of uncertain significance. No focal right renal abnormality.
[2019-05-20 19:22] LABS: Glucose,Whole Blood 201 mg/dL (75-99)
[2019-05-20] MEDS: INSULIN DETEMIR (LEVEMIR) 100 UNIT/ML SYR SQ SCH (22:12)
--- NOTE | 2019-05-20 22:16 | PN ---
PROGRESS NOTE DATE OF SERVICE: 05/20/2019 This 68-year-old gentleman with a past medical history of multiple medical problems, admitted with right upper quadrant abdominal pain. The patient also had mildly dilated main pancreatic duct, intrahepatic duct also. The patient also had hepatomegaly. The patient has significant CHF also. Cardiology and Gastroenterology following the patient closely. A 2D echo with Doppler suggested ejection fraction less than 20%. PAST MEDICAL HISTORY: Review. REVIEW OF SYSTEMS: Cardiovascular system: As mentioned earlier. RESPIRATORY: As mentioned earlier. GI: As mentioned earlier. : No dysuria. CENTRAL NERVOUS SYSTEM: No numbness or weakness. CURRENT MEDICATIONS: Reviewed and include: 1. Tylenol 1000 mg q.6h p.r.n. 2. Ventolin 2.5 q.i.d. 3. Zyloprim 300 mg daily. 4. Xanax 0.5 t.i.d. 5. Vitamin C 500 mg daily. 6. Aspirin 81 mg. 7. Symbicort 160/4.5 two puffs b.i.d. 8. Coreg 6.25 mg b.i.d. 9. Vitamin B12 1000 mg daily. 10.Lanoxin 125 mcg p.o. daily. 11.Flonase daily. 12.Lasix 40 mg subcu daily. 13.Heparin subcu b.i.d. 14.Dilaudid 0.125 mg p.r.n. 15.NovoLog a.c. and at bedtime. 16.Levemir 40 units subcu q.h.s. 17.Zestril 5 mg p.o. b.i.d. 18.Claritin 10 mg p.o. daily. 19.Glucophage 1000 mg p.o. b.i.d. 20.Zofran 4 mg q.6h. 21.Protonix 40 mg b.i.d. 22.Aldactone. 23.Restoril. 24.Tigan. PHYSICAL EXAM: Patient is alert, oriented x3. Pulse 64, blood pressure 98/64. Respiration 20, temperature 97.7, pulse ox 98% on room air. HEENT: Conjunctivae normal. Oral mucosa moist. NECK is no jugular venous distention. No carotid bruit. No lymph node enlargement. CARDIOVASCULAR: S1, S2 muffled. No S3, no S4. RESPIRATORY: Breath sounds diminished in the bases. A few scattered rhonchi and crackles. ABDOMEN: Soft, nontender. No mass palpable. LEGS: No edema. No swelling. NERVOUS SYSTEM: Higher functions as mentioned earlier. Moves all four limbs. No focal deficits. LYMPHATICS: No lymph nodes palpable in the neck, axillae or groin. SKIN: No ulcer, no rash and no bleeding. JOINTS: No active deforming arthropathy. LABS: WBC 17, hemoglobin 12.2, sodium 136. The LFTs are noted. Total bilirubin 1.8. ASSESSMENT: 1. Right upper quadrant abdominal pain possibly cholelithiasis. 2. Mildly dilated pancreatic duct and intrahepatic biliary duct of unknown significance on ultrasound. 3. Hepatomegaly on the ultrasound. 4. Congestive heart failure with chronic systolic dysfunction, possibly cardiomyopathy, ejection fraction less than 20% in the new 2D echo. 5. Increased creatinine with possible acute renal failure with possible acute tubular necrosis present on admission. 6. Thrombocytopenia mild. 7. History of atrial fibrillation. 8. Diabetes mellitus type 2. 9. Degenerative joint disease. 10.History of cardiomyopathy. 11.History of gout. 12.History of AICD. 13.History of a pacemaker. 14.Remote history of nicotine dependence. RECOMMENDATIONS AND DISCUSSION: Recommend to continue current medications, management and symptomatic treatment. Otherwise, at this time, the findings are reviewed with the patient and currently the patient is also being followed by multiple consultants. Cardiology stopped the IV steroids also. also following the patient closely. I discussed the case with Dr. Vu closely who recommended pancreas directed CT scan to rule out any pancreatic abnormality because the patient cannot have MRI because of the previous old AICD pacemaker. I would also recommend the patient follow closely with surgery and once cleared by Cardiology, the patient may be a candidate for a cholecystectomy. Prognosis guarded because of multiple complex medical issues. Repeat labs are ordered and further recommendations to follow. See orders for details and DVT prophylaxis. Further recommendations to follow. We will continue to monitor. MMODL / IJN: [id number] / MTDD
--- NOTE | 2019-05-20 23:03 | P.CONS ---
History of Present Illness - Reason for Consult Consult date: 05/20/19 Dilated pancreatic duct Requesting physician: Beverley Gay - Chief Complaint Abdominal pain - History of Present Illness 68-year-old male with a medical history significant for congestive heart failure, atrial fibrillation, diabetes mellitus, gout, prior AICD placement in 2009, and remote history of nicotine dependence who presents to the hospital with complaints of abdominal pain. He had reported several days of pain in the right upper quadrant of his abdomen. Denied any association with food reported increasing pain prompting his hesitation to the hospital for further evaluation. No nausea or vomiting associated with the pain. Initial ultrasound in the emergency department showed mildly dilated pancreatic duct with mild intrahepatic biliary dilation also noted, and cholelithiasis without any evidence of cholecystitis. Patient subsequently underwent a computed tomography scan of the abdomen with oral contrast which did not show any ductal dilation or pancreatic abnormalities. This was followed by a computed tomography scan of the pancreas, with pancreatic protocol which again was negative for any pancreatic or biliary abnormalities. Currently patient reports pain is improved. He did have an isolated elevation in his total bilirubin at 1.8. He is being evaluated by the surgical service for possible cholecystectomy. Review of Systems REVIEW OF SYSTEMS: CONSTITUTIONAL: Denies any fevers, chills, weight change or fatigue. CARDIOVASCULAR: Denies any chest pain, palpitations high or low blood pressures RESPIRATORY: Denies any shortness of breath, hemoptysis or cough. GENITOURINARY: No dysuria or hematuria. MUSCULOSKELETAL: No weakness reported. SKIN: Denies any new rashes or lesions, jaundice or pallor. PSYCHIATRIC: Denies any depression or anxiety. NEUROLOGY: Denies headache, denies any new focal deficits. EARS/NOSE/THROAT: No recent hearing change, congestion, nasal discharge or sore throat. EYES: No pain in eyes, discharge or change in vision. GASTROINTESTINAL: As per HPI. Past Medical History Past Medical History: Atrial Fibrillation, Heart Failure, Diabetes Mellitus, Osteoarthritis (OA) Additional Past Medical History / Comment(s): CARDIOMYOPATHY, GOUT, AICD/PPM- last implantation 2009 History of Any Multi-Drug Resistant Organisms: None Reported Past Surgical History: Heart Catheterization, Orthopedic Surgery, Pacemaker Additional Past Surgical History / Comment(s): LEFT ANKLE, LEFT WRIST, AICD/PPM PLACEMENT, epidural shots in neck Past Anesthesia/Blood Transfusion Reactions: No Reported Reaction Additional Past Anesthesia/Blood Transfusion Reaction / Comm: "Spinal given and did not work with my ankle surgery" Type of Cardiac Device: Permanent Pacemaker, AICD Device Placement Date:: 2009 Past Psychological History: No Psychological Hx Reported Smoking Status: Former smoker Past Alcohol Use History: Occasional Past Drug Use History: None Reported - Past Family History Father Family Medical History: AFIB, AICD/Pacemaker, Congestive Heart Failure (CHF), COPD, Diabetes Mellitus, Hypertension, Pneumonia Mother Family Medical History: Congestive Heart Failure (CHF) Medications and Allergies Home Medications Medication Instructions Recorded Confirmed Type Allopurinol [Zyloprim] 300 mg PO DAILY PRN 09/30/17 05/19/19 History Ascorbic Acid [Vitamin C] 500 mg PO DAILY 09/30/17 05/19/19 History Aspirin 81 mg PO DAILY 09/30/17 05/19/19 History Cyanocobalamin (Vitamin B-12) 1,000 mcg PO DAILY 09/30/17 05/19/19 History [Vitamin B-12] Digoxin [Digitek] 125 mcg PO DAILY 09/30/17 05/19/19 History Insulin Detemir [Levemir Flextouch] 40 units SQ HS 09/30/17 05/19/19 History [place]-3S/Dha/Epa/Fish Oil [Fish 2 cap PO DAILY 09/30/17 05/19/19 History Oil 1,000 mg Softgel] Sildenafil Citrate [Viagra] 100 mg PO ONCE PRN 09/30/17 05/19/19 History Spironolactone [Aldactone] 12.5 mg PO DAILY 09/30/17 05/19/19 History Carvedilol [Coreg] 6.25 mg PO BID 06/20/18 05/19/19 History Lisinopril [Zestril] 5 mg PO BID 06/20/18 05/19/19 History Vitamin D3(Unknown Dose) 1 tab PO DAILY 06/20/18 05/19/19 History Acetaminophen Tab [Tylenol Tab] 1,000 mg PO Q6H PRN 04/28/19 05/19/19 History Albuterol Inhaler [Ventolin Hfa 2 puff INHALATION RT-QID PRN 04/28/19 05/19/19 History Inhaler] Budesonide/Formoterol Fumarate 2 puff INHALATION RT-BID 04/28/19 05/19/19 History [Symbicort 160-4.5 Mcg Inhaler] Cetirizine HCl [Zyrtec] 10 mg PO DAILY 04/28/19 05/19/19 History Fluticasone Nasal [place] [Flonase 1 spr EA NOSTRIL DAILY 04/28/19 05/19/19 History Nasal [place]] Furosemide [Lasix] 20 - 40 mg PO DAILY 04/28/19 05/19/19 History Magnesium(Unknown) 1 tab PO DAILY 04/28/19 05/19/19 History Milk Thistle 150 mg PO DAILY 04/28/19 05/19/19 History [place]-3 Fatty Acids/Fish Oil [Fish 3 cap PO HS 04/28/19 05/19/19 History Oil 1,000 mg Softgel] Saw [place] 500 mg PO DAILY 04/28/19 05/19/19 History metFORMIN HCL 1,000 mg PO BID 04/28/19 05/19/19 History Allergies Allergy/AdvReac Type Severity Reaction Status Date / Time Upjyewj-Faf-Ujc Reductase AdvReac MUSCLE PAIN Verified 05/19/19 13:52 Inhibitor Physical Exam Vitals: Vital Signs Temp Pulse Pulse Pulse Resp BP BP 05/20/19 09:00 60 87 16 05/20/19 04:59 97.4 F L 60 16 106/70 05/19/19 21:08 87 18 106/71 05/19/19 16:41 97.8 F 73 18 98/67 05/19/19 16:15 62 18 93/67 05/19/19 14:51 67 18 106/70 05/19/19 12:37 97.5 F L 72 20 91/67 Pulse Ox 05/20/19 09:00 05/20/19 04:59 97 05/19/19 21:08 97 05/19/19 16:41 97 05/19/19 16:15 95 05/19/19 14:51 99 05/19/19 12:37 99 Intake and Output 05/19/19 05/20/19 05/20/19 22:59 06:59 14:59 Intake Total 1100 1200 Output Total 1600 Balance -500 1200 Intake: Intake, IV Titration 300 600 Amount Sodium Chloride 0.9% 1, 300 600 000 ml @ 75 mls/hr IV . [id number] [facility] Rx#:[id number] Oral 800 600 Output: Urine 400 Emesis 1200 Other: Voiding Method Toilet Toilet Urinal Urinal # Voids 2 2 1 Weight 95 kg On physical examination, patient appears comfortable in no apparent distress. HEAD: Normocephalic, atraumatic. EYES: No scleral icterus. No conjunctival injection. MOUTH: No lesions, tongue midline. NECK: Trachea midline, no gross abnormalities. CHEST: Clear to auscultation with no wheezing or rhonchi appreciated. HEART: S1-S2 appreciated. ABDOMEN: Soft, mildly tender to palpation in the right upper quadrant. Bowel sounds are positive. No organomegaly. No guarding or rigidity. EXTREMITIES: No pedal edema. SKIN: No rashes, no jaundice. NEUROLOGIC: Alert and oriented x3. No focal deficits. Results CBC & Chem 7: 05/20/19 06:16 05/20/19 06:16 Labs: Abnormal Lab Results - Last 24 Hours (Table) 05/19/19 05/19/19 05/19/19 Range/Units 12:56 12:56 20:09 Hgb (13.0-17.5) gm/dL RDW 17.3 H (11.5-15.5) % Plt Count 144 L (150-450) k/uL Sodium (137-145) mmol/L Chloride 96 L (98-107) mmol/L BUN 31 H (9-20) mg/dL Creatinine 1.28 H (0.66-1.25) mg/dL Glucose 105 H (74-99) mg/dL POC Glucose (mg/dL) 124 H (75-99) mg/dL Total Bilirubin 1.8 H (0.2-1.3) mg/dL Urine Protein (Negative) Urine Ketones (Negative) Hyaline Casts (0-2) /lpf Urine Mucus (None) /hpf 05/19/19 05/20/19 05/20/19 Range/Units 22:15 06:16 06:16 Hgb 12.7 L (13.0-17.5) gm/dL RDW 15.9 H (11.5-15.5) % Plt Count 134 L (150-450) k/uL Sodium 136 L (137-145) mmol/L Chloride 97 L (98-107) mmol/L BUN 28 H (9-20) mg/dL Creatinine (0.66-1.25) mg/dL Glucose (74-99) mg/dL POC Glucose (mg/dL) (75-99) mg/dL Total Bilirubin (0.2-1.3) mg/dL Urine Protein 2+ H (Negative) Urine Ketones Trace H (Negative) Hyaline Casts 4 H (0-2) /lpf Urine Mucus Few H (None) /hpf CT scan - abdomen: report reviewed (Computed tomography scan of the abdomen with pancreatic protocol with no pancreatic abnormalities, or biliary dilation noted, cholelithiasis seen) Assessment and Plan (1) Right upper quadrant abdominal pain Narrative/Plan: 68-year-old male with multiple medical comorbidities who initially presented to the hospital with complaints of right upper quadrant abdominal pain. The patient has had numerous imaging studies including an ultrasound of the abdomen, computed tomography scan of the abdomen and computed tomography scan of the abdomen with pancreatic protocol. Initially there was concern over pancreatic ductal dilation, however noted pancreatic abnormalities or pancreatic ductal or biliary duct dilation noted on pancreatic CT. He also had a mild elevation of his total bilirubin at 1.8 on presentation. Cholelithiasis has been noted on multiple imaging studies. Concern is for symptomatic cholelithiasis. Currently he is being seen by the surgical service with plans for tentative cholecystectomy. Current Visit: Yes Status: Acute Code(s): R10.11 - RIGHT UPPER QUADRANT PAIN SNOMED Code(s): 069155518 (2) Total bilirubin, elevated Current Visit: Yes Status: Acute Code(s): R17 - UNSPECIFIED JAUNDICE SNOMED Code(s): 551278882689201 Plan: Supportive care Clear liquid diet Computed tomography scan abdomen, ultrasound abdomen and computed tomography scan with pancreatic protocol reviewed with no pancreatic abnormalities or biliary dilation noted Continue to monitor liver enzymes Appreciate recommendations from surgical service, we'll defer to their management with tentative plan for cholecystectomy Thank you for allowing us to participate in the care of the patient, [facility] will stand by, please: Any questions or concerns
[2019-05-21] MEDS: SIMETHICONE 40 MG/0.6 ML DROPS 2,000 MG/30 ML BOTTLE PO PRN ×3 (00:34→17:11)
[2019-05-21 06:45] LABS: Glucose,Whole Blood 162 mg/dL (75-99)
[2019-05-21 07:43] LABS: Albumin 4.1 g/dL (3.5-5.0); Calcium 9.7 mg/dL (8.4-10.2); Potassium 4.7 mmol/L (3.5-5.1); Total Bilirubin 1.7 mg/dL (0.2-1.3); Total Protein 6.5 g/dL (6.3-8.2)
[2019-05-21 07:46] LABS: Anisocytosis Slight; Basophils # (A) 0.1 k/uL (0-0.2); Basophils % (A) 1 %; Eosinophils # (A) 0.2 k/uL (0-0.7); Eosinophils % (A) 3 %; HGB 13.3 gm/dL (13.0-17.5); Lymphocytes # (A) 1.9 k/uL (1.0-4.8); Lymphocytes % (A) 26 %; MCH 28.9 pg (25.0-35.0); MCHC 32.4 g/dL (31.0-37.0); Monocytes # (A) 0.5 k/uL (0-1.0); Monocytes % (A) 7 %; Neutrophils # (A) 4.6 k/uL (1.3-7.7); Neutrophils % (A) 63 %; Platelet Count 144 k/uL (150-450); RDW 17.9 % (11.5-15.5); WBC 7.3 k/uL (3.8-10.6)
[2019-05-21] MEDS: LISINOPRIL 5 MG TAB PO SCH ×2 (08:41→20:52)
[2019-05-21] MEDS: CARVEDILOL 6.25 MG TAB PO SCH ×2 (08:41→17:11)
[2019-05-21] MEDS: INSULIN ASPART (NovoLOG) 100 UNIT/ML VIAL SQ SCH ×4 (09:00→20:53)
[2019-05-21] MEDS: FLUTICASONE 50MCG/SPRAY NASAL 16GM EA NOSTRIL SCH (10:02)
[2019-05-21] MEDS: HEPARIN SODIUM,PORCINE 5,000 UNIT/ML 1 ML VIAL SQ SCH ×2 (10:03→10:06)
[2019-05-21] MEDS: FUROSEMIDE 40 MG TAB PO SCH (10:04)
[2019-05-21] MEDS: CYANOCOBALAMIN 500 MCG TAB PO SCH (10:04)
[2019-05-21] MEDS: LORATADINE 10 MG TAB PO SCH (10:05)
[2019-05-21] MEDS: metFORMIN 500 MG TAB PO SCH ×2 (10:05→20:53)
[2019-05-21] MEDS: PANTOPRAZOLE 40 MG/10 ML VIAL IVP SCH ×2 (10:06→20:52)
[2019-05-21] MEDS: ASPIRIN 81 MG PO SCH (10:07)
[2019-05-21] MEDS: DIGOXIN 125 MCG TAB PO SCH (10:07)
[2019-05-21] MEDS: ASCORBIC ACID 500 MG TAB PO SCH (10:07)
[2019-05-21] MEDS: SPIRONOLACTONE 25 MG TAB PO SCH (10:10)
--- NOTE | 2019-05-21 10:34 | P.PN ---
Progress Note - Text Progress Note Date: 05/21/19 The patient's still has complaints of nausea and right upper quadrant pain. On exam his vital signs are stable. His abdomen soft. There is mild tenderness in the right upper quadrant. Symptomatically cholelithiasis and chronic cholecystitis. Patient will undergo laparoscopic cystectomy to be in the a.m. He will be evaluated by the property consultant today.
[2019-05-21 11:30] LABS: Glucose,Whole Blood 155 mg/dL (75-99)
[2019-05-21] MEDS: SODIUM CHLORIDE 0.9% 1,000 ML IV SCH (11:36)
[2019-05-21] MEDS: SYMBICORT 160-4.5 MCG INHALER INHALATION SCH ×2 (11:55→19:50)
[2019-05-21 16:26] LABS: Glucose,Whole Blood 98 mg/dL (75-99)
[2019-05-21 20:25] LABS: Glucose,Whole Blood 81 mg/dL (75-99)
[2019-05-21] MEDS: INSULIN DETEMIR (LEVEMIR) 100 UNIT/ML SYR SQ SCH (20:53)
--- NOTE | 2019-05-21 22:21 | PN ---
PROGRESS NOTE DATE OF SERVICE: 05/21/2019. This 68-year-old gentleman who was admitted with right upper quadrant abdominal pain had possibly cholelithiasis. The patient also had pancreatic dedicated CT scan that did not show any acute abnormality. No chest pain. No palpitations. No fever. EXAM: Alert and oriented times three. Pulse 74. Blood pressure 93/66. Respiration 18. Temperature 97.2, pulse ox 97% on room air. HEENT is conjunctivae normal. NECK: No jugular venous distention. CARDIOVASCULAR: S1, S2 muffled. RESPIRATORY: Breath sounds diminished in the bases. No rhonchi. No crackles. ABDOMEN is soft, nontender. No mass palpable. LEGS are no edema. No swelling. CENTRAL NERVOUS SYSTEM: No focal deficits. LABS: WBC 7.2, hemoglobin 13.2. Sodium 136 and Accu-Cheks noted. Total bilirubin is 1.7. ASSESSMENT: 1. Right upper quadrant abdominal pain possible acute cholelithiasis. 2. Mildly dilated pancreatic duct of intrahepatic biliary duct of unknown significance on ultrasound. 4. Congestive heart failure with chronic systolic dysfunction possibly cardiomyopathy ejection fraction less than 20% with the new 2D echo. 5. Increased creatinine with possible acute renal failure with possible acute tubular necrosis, present on admission. 6. Thrombocytopenia, mild. 7. History of atrial fibrillation. 8. History of diabetes type 2. 9. Degenerative joint disease. 10.History of cardiomyopathy. 11.History of gout. 12.History of AICD. 13.History of pacemaker. 14.Remote history of nicotine dependence. RECOMMENDATIONS AND DISCUSSION: Recommend to continue current medications, management and symptomatic treatment. Otherwise, at this time, currently the patient is stable. The surgery will proceed once evaluated and assessed by Cardiology. Otherwise, overall prognosis extremely guarded. Further recommendations to follow. A pancreas CT scan was done which showed no evidence of any discrete pancreatic abnormality was noted. Mild bilateral pleural effusion was also noted. MMODL / IJN: [id number] / MTDD
[2019-05-22] MEDS: HYDROmorphone 0.5 MG/0.5 ML SYRINGE IVP PRN ×2 (03:39→08:59)
[2019-05-22] MEDS: SIMETHICONE 40 MG/0.6 ML DROPS 2,000 MG/30 ML BOTTLE PO PRN ×4 (03:39→20:33)
[2019-05-22 06:50] LABS: Glucose,Whole Blood 78 mg/dL (75-99)
[2019-05-22] MEDS: SYMBICORT 160-4.5 MCG INHALER INHALATION SCH ×2 (07:13→19:13)
[2019-05-22 07:57] LABS: Anisocytosis Slight; Basophils % (A) 1 %; Eosinophils # (A) 0.2 k/uL (0-0.7); Eosinophils % (A) 3 %; HGB 13.3 gm/dL (13.0-17.5); Hypochromasia Slight; Lymphocytes # (A) 2.1 k/uL (1.0-4.8); Lymphocytes % (A) 29 %; MCH 28.7 pg (25.0-35.0); MCHC 32.5 g/dL (31.0-37.0); MCV 88.1 fL (80.0-100.0); Mean Platelet Volume 8.4; Monocytes # (A) 0.5 k/uL (0-1.0); Monocytes % (A) 7 %; Neutrophils # (A) 4.3 k/uL (1.3-7.7); Neutrophils % (A) 59 %; Platelet Count 160 k/uL (150-450); RBC 4.65 m/uL (4.30-5.90); RDW 16.1 % (11.5-15.5); WBC 7.2 k/uL (3.8-10.6)
[2019-05-22 08:07] LABS: Calcium 10.1 mg/dL (8.4-10.2)
[2019-05-22] MEDS: ASCORBIC ACID 500 MG TAB PO SCH (08:10)
[2019-05-22] MEDS: CARVEDILOL 6.25 MG TAB PO SCH ×2 (08:10→16:26)
[2019-05-22] MEDS: INSULIN ASPART (NovoLOG) 100 UNIT/ML VIAL SQ SCH ×4 (08:10→20:34)
[2019-05-22] MEDS: PANTOPRAZOLE 40 MG/10 ML VIAL IVP SCH ×2 (08:11→20:33)
[2019-05-22] MEDS: FUROSEMIDE 40 MG TAB PO SCH ×2 (08:11→16:26)
[2019-05-22] MEDS: LISINOPRIL 5 MG TAB PO SCH (08:11)
[2019-05-22] MEDS: CYANOCOBALAMIN 500 MCG TAB PO SCH (08:11)
[2019-05-22] MEDS: metFORMIN 500 MG TAB PO SCH ×2 (08:11→20:34)
[2019-05-22] MEDS: ASPIRIN 81 MG PO SCH (08:11)
[2019-05-22] MEDS: FLUTICASONE 50MCG/SPRAY NASAL 16GM EA NOSTRIL SCH ×2 (08:11→08:16)
[2019-05-22] MEDS: DIGOXIN 125 MCG TAB PO SCH (08:11)
[2019-05-22] MEDS: LORATADINE 10 MG TAB PO SCH (08:11)
[2019-05-22] MEDS: SPIRONOLACTONE 25 MG TAB PO SCH (08:12)
[2019-05-22] MEDS: HEPARIN SODIUM,PORCINE 5,000 UNIT/ML 1 ML VIAL SQ SCH ×2 (08:13→20:34)
[2019-05-22] MEDS: SODIUM CHLORIDE 0.9% 1,000 ML IV SCH (08:17)
[2019-05-22] MEDS ORDERED: DEXTROSE 5% IN WATER 1,000 ML IV SCH (10:00)
[2019-05-22] MEDS: ONDANSETRON 4 MG/2 ML VIAL IVP PRN (10:04)
[2019-05-22 11:19] LABS: Glucose,Whole Blood 102 mg/dL (75-99)
[2019-05-22] MEDS ORDERED: IV FLUID CONTINUATION 1,000 ML IV ONE (12:26)
--- NOTE | 2019-05-22 12:28 | P.PN ---
Subjective This is a pleasant 68-year-old male past medical history significant for non-ischemic cardiomyopathy s/p AICD, hypertension, chronic systolic heart failure and diabetes mellitus. He follows with a [employer] supervisor out of [facility]. He is scheduled to undergo lap nito today with Dr. Call. Echocardiogram obtained on this admission reveals severe global hypokinesia, impaired LV systolic function with ejection fraction less than 20%, markedly dilated left atrium, mild aortic valve sclerosis with mild regurgitation, mild mitral regur gitation and mild tricuspid regurgitation. There is moderate pulmonary hypertension with an RVSP of 51 mmHg. Blood pressure this morning 91/60 heart rate 65 afebrile maintaining oxygen saturation on room air. Laboratory data reviewed, CBC unremarkable, sodium 138, potassium 5, creatinine 1.27. Currently maintained on aspirin 81 mg daily, carvedilol 6.25 mg twice a day, digoxin 125 g daily, Lasix 40 mg by mouth daily, lisinopril 5 mg twice a day and Aldactone 12.5 mg daily. He is seen and examined sitting up in bed with his at the bedside. He denies symptoms of chest pain, shortness of breath, dizziness or palpitations. He c/o of mild abdominal discomfort and persistent nausea. GENERAL: Well-appearing, well-nourished and in no acute distress. NECK: Supple without JVD or thyromegaly. LUNGS: Breath sounds clear to auscultation bilaterally. Respiration equal and unlabored. No wheezes, rales or rhonchi. HEART: Regular rate and rhythm with systolic ejection murmur at the left sternal border, no rubs or gallops. S1 and S2 heard. EXTREMITIES: Normal range of motion, no edema. No clubbing or cyanosis. Peripheral pulses intact. ASSESSMENT Chronic systolic heart failure, currently euvolemic Acute cholecystitis Non-ischemic cardiomyopathy AICD implantation Hypertension with episodes of hypotension during this admission Diabetes mellitus PLAN Clinically he is euvolemic. No symptoms of angina or shortness of breath. There is no absolute contraindication to undergo surgery today. He is an increased risk due to his chronic heart failure and poor EF. Recommend cautious fluid administration intra-operatively. Decrease lisinopril to daily for blood pressures running on the low side since admission. We will continue to follow and make recommendations accordingly. Nurse Practitioner note has been reviewed, I agree with a documented findings and plan of care. Patient was seen and examined. Objective - Vital Signs Vital signs: Vital Signs Temp 97.5 F L 05/22/19 11:45 Pulse 59 L 05/22/19 11:45 Resp 17 05/22/19 11:45 BP 87/56 05/22/19 11:45 Pulse Ox 97 05/22/19 11:45 Intake & Output 05/21/19 05/22/19 05/22/19 18:59 06:59 18:59 Intake Total 160 1120 Output Total 100 Balance 160 1020 Weight 93.5 kg Intake: Intake, IV Titration 160 220 Amount Sodium Chloride 0.9% 1, 160 220 000 ml @ 20 mls/hr IV . Q24H [facility] Rx#:[id number] Oral 900 Output: Urine 100 Other: Voiding Method Toilet Urinal # Voids 1 - Labs CBC & Chem 7: 05/22/19 07:31 05/22/19 07:31 Labs: Abnormal Lab Results - Last 24 Hours (Table) 05/22/19 05/22/19 05/22/19 Range/Units 07:31 07:31 11:18 RDW 16.1 H (11.5-15.5) % Chloride 95 L (98-107) mmol/L Carbon Dioxide 34 H (22-30) mmol/L Creatinine 1.27 H (0.66-1.25) mg/dL POC Glucose (mg/dL) 102 H (75-99) mg/dL
[2019-05-22] MEDS ORDERED: MIDAZOLAM (PF) 2 MG/2 ML VIAL IVP ONE (13:18)
[2019-05-22] MEDS ORDERED: BUPIVACAIN-EPI 0.25%-1:200,000 30 ML VIAL SQ ONE ×2 (13:25→13:46)
[2019-05-22] MEDS ORDERED: PROPOFOL 10 MG/ML 20 ML VIAL IV ONE (13:30)
[2019-05-22] MEDS ORDERED: ePHEDrine SULFATE/0.9% NACL/PF 50 MG/5 ML SYRINGE IV ONE (13:30)
[2019-05-22] MEDS ORDERED: ETOMIDATE 2 MG/ML 10 ML VIAL ONE (13:30)
[2019-05-22] MEDS ORDERED: SUCCINYLCHOLINE CHLORIDE 100 MG/5 ML SYR IV ONE (13:30)
[2019-05-22] MEDS ORDERED: LIDOCAINE 1% INJ 10MG/ML (20 ML MDV) ONE (13:30)
[2019-05-22] MEDS ORDERED: fentaNYL (PF) 50 MCG/ML 2 ML AMP ONE (13:30)
[2019-05-22] MEDS ORDERED: SODIUM CHLORIDE 0.9% 50 ML with ceFAZolin 2,000 MG IV ONE ×2 (13:45)
[2019-05-22] MEDS ORDERED: HYDROmorphone 0.5 MG/0.5 ML SYRINGE IM PRN (14:10)
--- NOTE | 2019-05-22 14:10 | P.OP ---
Date of Procedure: 05/22/19 Preoperative Diagnosis: Cholecystitis Postoperative Diagnosis: Cholecystitis Procedure(s) Performed: Laparoscopic cholecystectomy Anesthesia: BENITA Surgeon: Tevin Whitney Estimated Blood Loss (ml): 5 Pathology: other (Gallbladder) Condition: stable Disposition: PACU Description of Procedure: The patient was placed on the operating table. The patient received a general endotracheal tube anesthesia. The patients abdomen was prepped and draped in the usual sterile fashion. Through an infraumbilical stab incision, the fascia of the anterior abdominal wall was grasped with a pair of Kochers and then the Veress needle was placed in the peritoneal cavity. Position of the Veress needle was confirmed with positive drop test. The abdomen was then insufflated. After adequate insufflation, the 10 mm trocar was placed in the peritoneal cavity. Following this the laparoscope was placed in the peritoneal cavity. The patient was placed in the head-up, right side up position and then a 5 mm trocar was placed in the right lateral and right subcostal position under direct visualization. A 8 mm trocar was placed in the epigastric position. The gallbladder was grasped in the fundus and infundibulum. Traction on the gallbladder was placed in the lateral and the cephalad positions. The triangle of Calot was visualized.. The cystic duct was bluntly dissected until the union of the cystic duct and common bile duct was seen. A critical view of safety was achieved. The cystic duct was then divided and sealed with the Harmonic scissors. A PDS Endoloop was then placed throughout the cystic duct stump. The cystic artery divided and sealed with the Harmonic scissors. The gallbladder was then removed from the liver bed using Harmonic scissors. The gallbladder was then extracted through the epigastric port site. Operative field was checked for any bleeding spots and Harmonic scissors was used to coagulate the liver bed. The abdomen was irrigated. The trocars were removed. The skin was closed using interrupted 3-0 Vicryl suture. Dermabond dressing were applied. The patient tolerated the procedure well.
[2019-05-22] MEDS ORDERED: PHYSOSTIGMINE SALICYLATE 1 MG/ML 2 ML AMP IVP ONE (14:28)
[2019-05-22 14:48] LABS: Glucose,Whole Blood 161 mg/dL (75-99)
[2019-05-22] MEDS ORDERED: HYDROmorphone 1 MG/ML 1 ML SYRINGE IVP ONE (14:51)
[2019-05-22] MEDS ORDERED: ONDANSETRON 4 MG/2 ML VIAL IVP ONE (14:51)
--- NOTE | 2019-05-22 16:25 | PN ---
PROGRESS NOTE DATE OF SERVICE: 05/22/2019 This 68-year-old gentleman who was admitted with right upper quadrant abdominal pain is being closely monitored at this time. Patient had features of acute cholelithiasis. The patient is complaining of nausea after a Dilaudid injection. Dr. Whitney performed laparoscopic cholecystectomy. No chest pain. No palpitations. No fever. PHYSICAL EXAMINATION: Alert and oriented x3. Pulse is 54, blood pressure 98/56, respiration 12, temperature 97 degrees, pulse ox 96% on room air. HEENT: Conjunctivae normal. NECK: No jugular venous distention. CARDIOVASCULAR SYSTEM: S1, S2 muffled. RESPIRATORY SYSTEM: Breath sounds diminished at the bases. No rhonchi. No crackles. ABDOMEN: Soft. Status post surgery. LEGS: No edema. No swelling. NERVOUS SYSTEM: No focal deficit. LABS: CBC within normal limits. Sodium 138, potassium 5, creatinine 1.27. ASSESSMENT: 1. Right upper quadrant abdominal pain with possible acute cholelithiasis. 2. Status post laparoscopic cholecystectomy. 3. CT scan of the pancreas showing no other abnormalities currently. 4. Congestive heart failure with chronic systolic dysfunction, possibly cardiomyopathy, ejection fraction less than 20% on the new 2D echocardiogram. 5. Increased creatinine with possible mild acute renal failure with possible acute tubular necrosis, present on admission. 6. Thrombocytopenia, mild. 7. History of atrial fibrillation. 8. History of diabetes mellitus, type 2. 9. History of degenerative joint disease. 10.History of cardiomyopathy. 11.History of gout. 12.History of automated implantable cardioverter defibrillator. 13.History of pacemaker. 14.History of nicotine dependence. RECOMMENDATIONS AND DISCUSSION: At this time I recommend to continue current medications, continue with the monitoring, symptomatic treatment. Closely follow with Surgery. The initial ultrasound showed multiple abnormalities. CT scan not show an acute abnormality. I recommend continuing to follow the patient closely. Repeat labs. Otherwise, continue to monitor. Further recommendations to follow. MMODL / IJN: [id number] /
[2019-05-22 17:19] LABS: Glucose,Whole Blood 171 mg/dL (75-99)
[2019-05-22] MEDS: SODIUM CHLORIDE 0.9% 500 ML 500 ML IV SCH (18:28)
[2019-05-22 19:59] LABS: Glucose,Whole Blood 130 mg/dL (75-99)
[2019-05-22] MEDS: INSULIN DETEMIR (LEVEMIR) 100 UNIT/ML SYR SQ SCH (20:34)
[2019-05-23] MEDS: ONDANSETRON 4 MG/2 ML VIAL IVP PRN ×2 (00:35→07:13)
[2019-05-23 07:06] LABS: Glucose,Whole Blood 141 mg/dL (75-99)
[2019-05-23] MEDS: SIMETHICONE 40 MG/0.6 ML DROPS 2,000 MG/30 ML BOTTLE PO PRN ×2 (07:13→22:00)
[2019-05-23] MEDS: SYMBICORT 160-4.5 MCG INHALER INHALATION SCH ×2 (08:18→20:05)
[2019-05-23] MEDS: INSULIN ASPART (NovoLOG) 100 UNIT/ML VIAL SQ SCH ×4 (08:21→21:54)
[2019-05-23] MEDS: HEPARIN SODIUM,PORCINE 5,000 UNIT/ML 1 ML VIAL SQ SCH ×2 (08:22→21:55)
[2019-05-23] MEDS: FUROSEMIDE 40 MG TAB PO SCH (08:23)
[2019-05-23] MEDS: FLUTICASONE 50MCG/SPRAY NASAL 16GM EA NOSTRIL SCH (08:24)
[2019-05-23] MEDS: ASCORBIC ACID 500 MG TAB PO SCH (08:24)
[2019-05-23] MEDS: PANTOPRAZOLE 40 MG/10 ML VIAL IVP SCH (08:24)
[2019-05-23] MEDS: ASPIRIN 81 MG PO SCH (08:24)
[2019-05-23] MEDS: CYANOCOBALAMIN 500 MCG TAB PO SCH (08:24)
[2019-05-23] MEDS: CARVEDILOL 6.25 MG TAB PO SCH ×2 (08:24→17:17)
[2019-05-23] MEDS: metFORMIN 500 MG TAB PO SCH ×2 (08:24→21:55)
[2019-05-23] MEDS: DIGOXIN 125 MCG TAB PO SCH (08:24)
[2019-05-23] MEDS: LISINOPRIL 5 MG TAB PO SCH (08:24)
[2019-05-23] MEDS: LORATADINE 10 MG TAB PO SCH (08:24)
[2019-05-23] MEDS: SPIRONOLACTONE 25 MG TAB PO SCH (08:25)
[2019-05-23] MEDS: MAGNESIUM OXIDE 400 MG TAB PO SCH ×2 (09:19→21:55)
[2019-05-23 09:30] LABS: Magnesium 1.3 mg/dL (1.6-2.3); Potassium 4.3 mmol/L (3.5-5.1)
[2019-05-23] MEDS ORDERED: Magnesium Replacement Protocol 1 EACH MISC MISCELLANE PRN (09:46)
[2019-05-23] MEDS: MAGNESIUM SULFATE-D5W PMX 1 GM in DEXTROSE/WATER 1 100ML.BAG IVPB SCH ×3 (10:03→12:57)
[2019-05-23 11:29] LABS: Albumin 3.7 g/dL (3.5-5.0); Calcium 9.2 mg/dL (8.4-10.2); Total Bilirubin 1.7 mg/dL (0.2-1.3); Total Protein 5.9 g/dL (6.3-8.2)
--- NOTE | 2019-05-23 11:45 | P.PN ---
Subjective Progress Note Date: 05/23/19 CHIEF COMPLAINT: abdominal pain HISTORY OF PRESENT ILLNESS: patient is status post laparoscopic cholecystectomy. Postop day #1. Patient reports his pain is tolerable. Patient reports mild nausea this morning. No episodes of emesis. He has been drinking water. He tolerated breakfast. apparently the patient had a 7 beat run of V. tach this morning. Cardiology is following. PHYSICAL EXAM: VITAL SIGNS: Reviewed. GENERAL: Well-developed in no acute distress. HEENT: No sclera icterus. Extraocular movements grossly intact. Moist buccal mucosa. Head is atraumatic, normocephalic. ABDOMEN: Soft. Nondistended. appropriate surgical tenderness. Laparoscopic incision sites clean dry and intact without drainage or signs of infection. NEUROLOGIC: Alert and oriented. Cranial nerves II through XII grossly intact. ASSESSMENT: 1. Cholecystitis, status post arthroscopic cholecystectomy PLAN: 1. Pain control 2. Incentive spirometry 3. Activity as tolerated 4. Replace electrolytes. Obtain CBC and CMP 5. Anticipate discharge home tomorrow if cleared by cardiology Nurse practitioner note has been reviewed by physician. Signing provider agrees with the documented findings, assessment, and plan of care. Objective - Vital Signs Vital signs: Vital Signs Temp 98.0 F 05/23/19 05:00 Pulse 96 05/23/19 05:00 Resp 16 05/23/19 05:00 BP 103/67 05/23/19 05:00 Pulse Ox 92 L 05/23/19 05:00 Intake & Output 05/22/19 05/23/19 05/23/19 18:59 06:59 18:59 Intake Total 880 1060 Output Total 5 250 Balance 875 810 Intake: IV 650 Intake, IV Titration 230 350 Amount Dextrose 5% in Water 1, 150 000 ml @ 50 mls/hr IV . Q20H [facility] Rx#:[id number] Sodium Chloride 0.9% 1, 80 000 ml @ 20 mls/hr IV . Q24H [facility] Rx#:[id number] Sodium Chloride 0.9% 500 350 ml 500 ml @ 20 mls/hr IV .Q24H [facility] Rx#:[id number] Oral 710 Output: Urine 250 Estimated Blood Loss 5 Other: Voiding Method Toilet Urinal # Voids 3 1 - Labs CBC & Chem 7: 05/22/19 07:31 05/23/19 09:02 Labs: Abnormal Lab Results - Last 24 Hours (Table) 05/22/19 05/22/19 05/22/19 Range/Units 14:28 17:18 19:56 POC Glucose (mg/dL) 161 H 171 H 130 H (75-99) mg/dL Magnesium (1.6-2.3) mg/dL 05/23/19 05/23/19 Range/Units 07:04 09:02 POC Glucose (mg/dL) 141 H (75-99) mg/dL Magnesium 1.3 L (1.6-2.3) mg/dL
[2019-05-23 11:46] LABS: Glucose,Whole Blood 127 mg/dL (75-99)
[2019-05-23 11:47] LABS: Potassium 4.3 mmol/L (3.5-5.1)
[2019-05-23 12:22] LABS: Anisocytosis Slight; Basophils # (A) 0.1 k/uL (0-0.2); Basophils % (A) 1 %; Eosinophils # (A) 0.2 k/uL (0-0.7); Eosinophils % (A) 3 %; HCT 41.6 % (39.0-53.0); HGB 13.3 gm/dL (13.0-17.5); Lymphocytes # (A) 1.2 k/uL (1.0-4.8); Lymphocytes % (A) 15 %; MCH 28.5 pg (25.0-35.0); MCHC 31.9 g/dL (31.0-37.0); MCV 89.1 fL (80.0-100.0); Mean Platelet Volume 10.3; Monocytes # (A) 0.6 k/uL (0-1.0); Monocytes % (A) 8 %; Neutrophils # (A) 5.9 k/uL (1.3-7.7); Neutrophils % (A) 73 %; Platelet Count 136 k/uL (150-450); RBC 4.67 m/uL (4.30-5.90); RDW 17.5 % (11.5-15.5)
--- NOTE | 2019-05-23 12:48 | P.PN ---
Subjective This is a pleasant 68-year-old male past medical history significant for non-ischemic cardiomyopathy s/p AICD, hypertension, chronic systolic heart failure and diabetes mellitus. He follows with a associate web developer out of [facility]. He underwent laparoscopic cholecystectomy yesterday. He is seen and examined sitting up in bed. He complains of pain at the incision site described as burning with persistent nausea. He was up to the bathroom this morning and did have a bowel movement. At that time telemetry tracings indicate he had a 7-beat run of non-sustained wide complex ventricular tachycardia. He denies feeling palpitations, chest pain, shortness of breath or dizziness. He did state he was bearing down significantly. Blood pressure this morning 103/67 heart rate 96. GENERAL: Well-appearing, well-nourished and in no acute distress. NECK: Supple without JVD or thyromegaly. LUNGS: Breath sounds clear to auscultation bilaterally. Respiration equal and unlabored. No wheezes, rales or rhonchi. HEART: Regular rate and rhythm with systolic ejection murmur at the left sternal border, no rubs or gallops. S1 and S2 heard. EXTREMITIES: Normal range of motion, no edema. No clubbing or cyanosis. Peripheral pulses intact. ASSESSMENT Chronic systolic heart failure, currently euvolemic Acute cholecystitis Non-ischemic cardiomyopathy AICD implantation Hypertension with episodes of hypotension during this admission Diabetes mellitus PLAN Check stat potassium and magnesium. Replace per protocol. Ongoing telemetry monitoring for another 24 hours to assess for recurrent arrhythmia. We will continue to follow and make recommendations accordingly. Nurse Practitioner note has been reviewed, I agree with a documented findings an d plan of care. Patient was seen and examined. Objective - Vital Signs Vital signs: Vital Signs Temp 98.0 F 05/23/19 05:00 Pulse 96 05/23/19 05:00 Resp 16 05/23/19 05:00 BP 103/67 05/23/19 05:00 Pulse Ox 92 L 05/23/19 05:00 Intake & Output 05/22/19 05/23/19 05/23/19 18:59 06:59 18:59 Intake Total 880 1060 Output Total 5 250 Balance 875 810 Intake: IV 650 Intake, IV Titration 230 350 Amount Dextrose 5% in Water 1, 150 000 ml @ 50 mls/hr IV . Q20H [facility] Rx#:[id number] Sodium Chloride 0.9% 1, 80 000 ml @ 20 mls/hr IV . Q24H [facility] Rx#:[id number] Sodium Chloride 0.9% 500 350 ml 500 ml @ 20 mls/hr IV .Q24H [facility] Rx#:[id number] Oral 710 Output: Urine 250 Estimated Blood Loss 5 Other: Voiding Method Toilet Urinal # Voids 3 1 - Labs CBC & Chem 7: 05/23/19 09:02 05/23/19 09:02 Labs: Abnormal Lab Results - Last 24 Hours (Table) 05/22/19 05/22/19 05/22/19 Range/Units 11:18 14:28 17:18 POC Glucose (mg/dL) 102 H 161 H 171 H (75-99) mg/dL 05/22/19 05/23/19 Range/Units 19:56 07:04 POC Glucose (mg/dL) 130 H 141 H (75-99) mg/dL
--- NOTE | 2019-05-23 13:46 | XR ---
EXAMINATION TYPE: XR chest 1V portable DATE OF EXAM: 05/23/2019 COMPARISON: Prior chest x-ray 05/19/2019 HISTORY: Congestive heart failure TECHNIQUE: Single frontal view of the chest is obtained. FINDINGS: Defibrillator is present in the left pectoral region, intracardiac defibrillator lead pres ent in the right ventricle. Heart size appears prominently and may be accentuated by technique, rotat ion. No evident airspace disease or pneumothorax. Patchy bibasilar density is present, there is some blunting of the costophrenic angles. There are overlying cardiac leads. IMPRESSION: Small pleural effusions. Probable basilar atelectasis. Additional findings above.
--- NOTE | 2019-05-23 13:53 | PN ---
PROGRESS NOTE DATE OF SERVICE: 05/23/2019 This 68-year-old gentleman who was admitted with right upper quadrant abdominal pain, had acute cholelithiasis. The patient underwent laparoscopic cholecystectomy. Patient also had hypomagnesemia and runs of nonsustained ventricular tachycardia today. Cardiology following the patient closely. Patient on magnesium, _ 3grams of magnesium has been given. Patient on telemetry. PAST MEDICAL HISTORY: Reviewed. REVIEW OF SYSTEMS: CARDIOVASCULAR SYSTEM: No angina. RESPIRATORY SYSTEM: As mentioned earlier. GI: No nausea or vomiting. : No dysuria. NERVOUS SYSTEM: No numbness or weakness. CURRENT MEDICATIONS: Current medications are reviewed and include: 1. Tylenol 1000 mg q.6 p.r.n. 2. Ventolin 2.5 q.i.d. p.r.n. 3. Zyloprim 300 mg. 4. Xanax 0.25 t.i.d. 5. Vitamin C 500 mg p.o. daily. 6. Aspirin 81 mg daily. 7. Symbicort 160/4.5 two puffs b.i.d. 8. Coreg 6.25 mg p.o. b.i.d. 9. Vitamin B12, 1000 mcg p.o. daily. 10.Lanoxin 125 mcg p.o. daily. 11.Flonase 1 spray daily. 12.Lasix 40 mg daily. 13.Heparin 5000 subcu b.i.d. 14.Dilaudid 0.125 mg q.4 p.r.n. 15.NovoLog. 16.Levemir. 17.Zestril. 18.Claritin. 19.Magnesium oxide. 20.Glucophage. 21.Zofran. 22.Protonix. 23.Aldactone. 24.Restoril. 25.Tigan. The doses are reviewed. PHYSICAL EXAMINATION: Patient is alert and oriented. Pulse 66, blood pressure 96/65, respirations 16, temperature 97.8, pulse ox 97% on room air. HEENT: Conjunctivae normal. NECK: No jugular venous distention. CARDIOVASCULAR: S1, S2 muffled. RESPIRATORY SYSTEM: Breath sounds diminished at the bases. Bilateral scattered rhonchi and crackles. ABDOMEN: Soft, status post surgery. LEGS: No edema. No swelling. NERVOUS SYSTEM: No focal deficits. LABS: WBC 8, hemoglobin 13.3 sodium is 135, magnesium 1.3. ASSESSMENT: 1. Right upper quadrant abdominal pain with possible acute cholelithiasis. 2. Status post laparoscopic cholecystectomy. 3. Hypomagnesemia. 4. Nonsustained ventricular tachycardia. 5. CT scan of the pancreas showing no other abnormalities currently. 6. Congestive heart failure with chronic systolic dysfunction possibly cardiomyopathy ejection fraction less than 20%. 7. Increased creatinine with possible acute renal failure with possible acute tubular necrosis, present on admission. 8. Thrombocytopenia, mild. 9. History of atrial fibrillation. 10.History of diabetes mellitus type 2. 11.History of degenerative joint disease. 12.History of cardiomyopathy. 13.History of gout. 14.History of automated implantable cardioverter-defibrillator. 15.History of pacemaker. 16.History of nicotine dependence. RECOMMENDATIONS AND DISCUSSION: Recommend to continue current medications, continue symptomatic treatment. Continue with magnesium replacement. Continue with telemetry. Monitor fluid electrolyte balance closely. Otherwise, I would also recommend a chest x-ray for stability. Otherwise, continue to monitor. Closely follow with Cardiology. Further recommendations to follow. Discussed with the family. RACHEL / RIGOBERTO: [id number] / VIANNEY
[2019-05-23 17:02] LABS: Glucose,Whole Blood 118 mg/dL (75-99)
[2019-05-23] MEDS: SODIUM CHLORIDE 0.9% 500 ML 500 ML IV SCH (17:17)
[2019-05-23 20:25] LABS: Glucose,Whole Blood 165 mg/dL (75-99)
[2019-05-23] MEDS: PANTOPRAZOLE 40 MG TABLET PO SCH (21:55)
[2019-05-23] MEDS: INSULIN DETEMIR (LEVEMIR) 100 UNIT/ML SYR SQ SCH (22:11)
[2019-05-24 06:48] LABS: Glucose,Whole Blood 108 mg/dL (75-99)
[2019-05-24] MEDS: INSULIN ASPART (NovoLOG) 100 UNIT/ML VIAL SQ SCH ×2 (07:03→12:10)
[2019-05-24] MEDS: SYMBICORT 160-4.5 MCG INHALER INHALATION SCH (07:16)
[2019-05-24 08:22] LABS: Calcium 9.4 mg/dL (8.4-10.2); Magnesium 1.6 mg/dL (1.6-2.3); Potassium 4.4 mmol/L (3.5-5.1)
[2019-05-24] MEDS: ASCORBIC ACID 500 MG TAB PO SCH (08:48)
[2019-05-24] MEDS: SPIRONOLACTONE 25 MG TAB PO SCH (08:48)
[2019-05-24] MEDS: LISINOPRIL 5 MG TAB PO SCH (08:48)
[2019-05-24] MEDS: CYANOCOBALAMIN 500 MCG TAB PO SCH (08:48)
[2019-05-24] MEDS: DIGOXIN 125 MCG TAB PO SCH (08:48)
[2019-05-24] MEDS: FUROSEMIDE 40 MG TAB PO SCH (08:48)
[2019-05-24] MEDS: ASPIRIN 81 MG PO SCH (08:48)
[2019-05-24] MEDS: PANTOPRAZOLE 40 MG TABLET PO SCH (08:48)
[2019-05-24] MEDS: CARVEDILOL 6.25 MG TAB PO SCH (08:48)
[2019-05-24] MEDS: LORATADINE 10 MG TAB PO SCH (08:48)
[2019-05-24] MEDS: metFORMIN 500 MG TAB PO SCH (08:48)
[2019-05-24] MEDS: MAGNESIUM OXIDE 400 MG TAB PO SCH (08:48)
[2019-05-24] MEDS: HEPARIN SODIUM,PORCINE 5,000 UNIT/ML 1 ML VIAL SQ SCH (08:49)
[2019-05-24] MEDS: FLUTICASONE 50MCG/SPRAY NASAL 16GM EA NOSTRIL SCH (08:49)
[2019-05-24] MEDS ORDERED: Magnesium Replacement Protocol 1 EACH MISC MISCELLANE PRN (08:58)
--- NOTE | 2019-05-24 09:20 | P.PN ---
Subjective This is a pleasant 68-year-old male past medical history significant for non-ischemic cardiomyopathy s/p AICD, hypertension, chronic systolic heart failure and diabetes mellitus. He follows with a life science technical officer out of [facility]. He underwent laparoscopic cholecystectomy, POD#2. Yesterday he was having episodes of non-sustained VT. Longest run was 8 beats. This was in the setting of hypomagnesemia. He was replaced yesterday with IV and resumed on daily oral supplements. Repeat mag level today is 1.6, potassium 4.4, sodium 137 and cre atinine 1.18. Blood pressure 100/62 heart rate 77. He is seen and examined sitting up in bed in no acute distress. He continues to describe a burning sensation at the surgical site. He denies chest pain, shortness of breath, dizziness or palpitations. Clinically he is euvolemic. GENERAL: Well-appearing, well-nourished and in no acute distress. NECK: Supple without JVD or thyromegaly. LUNGS: Breath sounds clear to auscultation bilaterally. Respiration equal and unlabored. No wheezes, rales or rhonchi. HEART: Regular rate and rhythm with systolic ejection murmur at the left sternal border, no rubs or gallops. S1 and S2 heard. EXTREMITIES: Normal range of motion, no edema. No clubbing or cyanosis. Peripheral pulses intact. ASSESSMENT Chronic systolic heart failure, currently euvolemic Acute cholecystitis Hypomagnesemia, resolved. Remains on the low side of normal today. Monomorphic wide complex nonsustained ventricular tachycardia Non-ischemic cardiomyopathy AICD implantation Hypertension with episodes of hypotension during this admission Diabetes mellitus PLAN Give an additional IV magnesium replacement today for optimal magnesium greater than 2. Last noted VT was yesterday around noon-time. Discussed the importance of close follow up with his life science technical officer upon discharge. Encouraged use of incentive spirometer. Nurse Practitioner note has been reviewed, I agree with a documented findings and plan of care. Patient was seen and examined. Objective - Vital Signs Vital signs: Vital Signs Temp 98.1 F 05/24/19 05:00 Pulse 77 05/24/19 05:00 Resp 16 05/24/19 05:00 BP 100/62 05/24/19 05:00 Pulse Ox 92 L 05/24/19 05:00 Intake & Output 05/23/19 05/24/19 05/24/19 18:59 06:59 18:59 Intake Total 1040 790 Balance 1040 790 Weight 93 kg Intake: Intake, IV Titration 460 70 Amount Magnesium Sulfate-D5w Pmx 300 1 gm In Dextrose/Water 1 100ml.bag @ 100 mls/hr IVPB Q1H [facility] Rx#: [id number] Sodium Chloride 0.9% 500 160 70 ml 500 ml @ 20 mls/hr IV .Q24H [facility] Rx#:[id number] Oral 580 720 Other: Voiding Method Toilet # Voids 2 3 # Bowel Movements 2 - Labs CBC & Chem 7: 05/23/19 09:02 05/24/19 07:46 Labs: Abnormal Lab Results - Last 24 Hours (Table) 05/23/19 05/23/19 05/23/19 Range/Units 09:02 09:02 09:02 RDW 17.5 H (11.5-15.5) % Plt Count 136 L (150-450) k/uL Sodium 135 L (137-145) mmol/L Chloride (98-107) mmol/L Carbon Dioxide (22-30) mmol/L Glucose 143 H (74-99) mg/dL POC Glucose (mg/dL) (75-99) mg/dL Magnesium 1.3 L (1.6-2.3) mg/dL Total Bilirubin 1.7 H (0.2-1.3) mg/dL Total Protein 5.9 L (6.3-8.2) g/dL 05/23/19 05/23/19 05/23/19 Range/Units 11:30 17:00 20:24 RDW (11.5-15.5) % Plt Count (150-450) k/uL Sodium (137-145) mmol/L Chloride (98-107) mmol/L Carbon Dioxide (22-30) mmol/L Glucose (74-99) mg/dL POC Glucose (mg/dL) 127 H 118 H 165 H (75-99) mg/dL Magnesium (1.6-2.3) mg/dL Total Bilirubin (0.2-1.3) mg/dL Total Protein (6.3-8.2) g/dL 05/24/19 05/24/19 Range/Units 06:43 07:46 RDW (11.5-15.5) % Plt Count (150-450) k/uL Sodium (137-145) mmol/L Chloride 97 L (98-107) mmol/L Carbon Dioxide 31 H (22-30) mmol/L Glucose 127 H (74-99) mg/dL POC Glucose (mg/dL) 108 H (75-99) mg/dL Magnesium (1.6-2.3) mg/dL Total Bilirubin (0.2-1.3) mg/dL Total Protein (6.3-8.2) g/dL
--- NOTE | 2019-05-24 10:09 | P.DS ---
Providers Date of admission: 05/21/19 09:59 Expected date of discharge: 05/24/19 Attending physician: Beverley Gay Consults: 05/19/19 19:45 Consult Physician Urgent Consulting Provider: Tevin Whitney Consult Reason/Comments: gallstones Do you want consulting provider notified?: Already Contacted 05/19/19 20:15 Consult Physician Routine Consulting Provider: Simi Conde Consult Reason/Comments: chf Do you want consulting provider notified?: Yes Primary care physician: [facility] Course: 68-year-old patient who presented to the hospital with acute abdominal pain. Patient underwent laparoscopic cholecystectomy with Dr. Whitney. Patient has been doing well postoperatively. He has been followed by cardiology during hospitalization secondary to history of heart failure. Patient did have a small run of nonsustained V. tach. His magnesium was replaced and has had no further runs of V. tach. Vital signs haven't stable. He is tolerating diet. Pain is controlled on oral medications. He is stable for discharge home today. He is to follow up with Dr. Whitney outpatient. Please see EMR for further hospital course details. Discharge Diagnosis: 1. Cholecystitis, status post arthroscopic cholecystectomy Nurse practitioner note has been reviewed by physician. Signing provider agrees with the documented findings, assessment, and plan of care. Patient Condition at Discharge: Stable Plan - Discharge Summary Discharge Rx Participant: No New Discharge Prescriptions: New Hydrocodone/Acetaminophen [[place] 5-325] 1 tab PO Q6HR PRN 3 Days #12 tab PRN Reason: Pain No Action [place]-3S/Dha/Epa/Fish Oil [Fish Oil 1,000 mg Softgel] 2 cap PO DAILY Ascorbic Acid [Vitamin C] 500 mg PO DAILY Insulin Detemir [Levemir Flextouch] 40 units SQ HS Aspirin 81 mg PO DAILY Sildenafil Citrate [Viagra] 100 mg PO ONCE PRN PRN Reason: E.D. Digoxin [Digitek] 125 mcg PO DAILY Spironolactone [Aldactone] 12.5 mg PO DAILY Allopurinol [Zyloprim] 300 mg PO DAILY PRN PRN Reason: GOUT Cyanocobalamin (Vitamin B-12) [Vitamin B-12] 1,000 mcg PO DAILY Vitamin D3(Unknown Dose) 1 tab PO DAILY Lisinopril [Zestril] 5 mg PO BID Carvedilol [Coreg] 6.25 mg PO BID Saw [place] 500 mg PO DAILY [place]-3 Fatty Acids/Fish Oil [Fish Oil 1,000 mg Softgel] 3 cap PO HS Milk Thistle 150 mg PO DAILY metFORMIN HCL 1,000 mg PO BID Furosemide [Lasix] 20 - 40 mg PO DAILY Fluticasone Nasal [place] [Flonase Nasal [place]] 1 spr EA NOSTRIL DAILY Cetirizine HCl [Zyrtec] 10 mg PO DAILY Budesonide/Formoterol Fumarate [Symbicort 160-4.5 Mcg Inhaler] 2 puff INHALATION RT-BID Albuterol Inhaler [Ventolin Hfa Inhaler] 2 puff INHALATION RT-QID PRN PRN Reason: Shortness Of Breath Or Wheezing Acetaminophen Tab [Tylenol Tab] 1,000 mg PO Q6H PRN PRN Reason: Pain Magnesium(Unknown) 1 tab PO DAILY Discharge Medication List Allopurinol [Zyloprim] 300 mg PO DAILY PRN 09/30/17 [History] Ascorbic Acid [Vitamin C] 500 mg PO DAILY 09/30/17 [History] Aspirin 81 mg PO DAILY 09/30/17 [History] Cyanocobalamin (Vitamin B-12) [Vitamin B-12] 1,000 mcg PO DAILY 09/30/17 [History] Digoxin [Digitek] 125 mcg PO DAILY 09/30/17 [History] Insulin Detemir [Levemir Flextouch] 40 units SQ HS 09/30/17 [History] [place]-3S/Dha/Epa/Fish Oil [Fish Oil 1,000 mg Softgel] 2 cap PO DAILY 09/30/17 [History] Sildenafil Citrate [Viagra] 100 mg PO ONCE PRN 09/30/17 [History] Spironolactone [Aldactone] 12.5 mg PO DAILY 09/30/17 [History] Carvedilol [Coreg] 6.25 mg PO BID 06/20/18 [History] Lisinopril [Zestril] 5 mg PO BID 06/20/18 [History] Vitamin D3(Unknown Dose) 1 tab PO DAILY 06/20/18 [History] Acetaminophen Tab [Tylenol Tab] 1,000 mg PO Q6H PRN 04/28/19 [History] Albuterol Inhaler [Ventolin Hfa Inhaler] 2 puff INHALATION RT-QID PRN 04/28/19 [History] Budesonide/Formoterol Fumarate [Symbicort 160-4.5 Mcg Inhaler] 2 puff INHALATION RT-BID 04/28/19 [History] Cetirizine HCl [Zyrtec] 10 mg PO DAILY 04/28/19 [History] Fluticasone Nasal [place] [Flonase Nasal [place]] 1 spr EA NOSTRIL DAILY 04/28/19 [History] Furosemide [Lasix] 20 - 40 mg PO DAILY 04/28/19 [History] Magnesium(Unknown) 1 tab PO DAILY 04/28/19 [History] Milk Thistle 150 mg PO DAILY 04/28/19 [History] [place]-3 Fatty Acids/Fish Oil [Fish Oil 1,000 mg Softgel] 3 cap PO HS 04/28/19 [History] [place] 500 mg PO DAILY 04/28/19 [History] metFORMIN HCL 1,000 mg PO BID 04/28/19 [History] Hydrocodone/Acetaminophen [[place] 5-325] 1 tab PO Q6HR PRN 3 Days #12 tab 05/24/19 [Rx] Follow up Appointment(s)/Referral(s): [facility] [Provider Group] - 1 Week Km Hawthorne DO [Primary Care Provider] - 1-2 days Tevin Whitney MD [STAFF PHYSICIAN] - 1 Week Activity/Diet/Wound Care/Special Instructions: No driving while taking [place] No lifting over 10 pounds You may shower. No soaking or tub baths Very light activity until you are reevaluated at your follow up appointment with your surgeon Discharge Disposition: HOME SELF-CARE
[2019-05-24] MEDS: MAGNESIUM SULFATE-D5W PMX 1 GM in DEXTROSE/WATER 1 100ML.BAG IVPB SCH ×2 (11:08→12:10)
[2019-05-24 11:09] LABS: Glucose,Whole Blood 193 mg/dL (75-99)
[2019-05-24 11:37] VITALS: BP 100/67; PULSE 73; RESP 18; TEMP 97.7
--- NOTE | 2019-05-24 12:46 | DS ---
DISCHARGE SUMMARY DATE OF SERVICE: 05/24/2019 FINAL DIAGNOSES: 1. Right upper quadrant abdominal pain with possible acute cholelithiasis, status post laparoscopic cholecystectomy. 2. Hypomagnesemia, improved. 3. History of non sustained ventricular tachycardia. 4. CT scan of the pancreas showing no other abnormalities currently. 5. Congestive heart failure with chronic systolic dysfunction, possibly cardiomyopathy, ejection fraction less than 20%. 6. Increased creatinine with possible acute renal failure, possible acute tubular necrosis prior to admission. 7. Thrombocytopenia mild. 8. History atrial fibrillation. 9. Diabetes mellitus type 2. 10.History of degenerative joint disease. 11.History of cardiomyopathy. 12.History of gout. 13.History AICD. 14.History of pacemaker. 15.History of nicotine dependence. DISCHARGE DISPOSITION: The patient will be discharged in a stable condition with guarded prognosis. Total time is 35 minutes. HISTORY OF PRESENT ILLNESS: This is a 68-year-old gentleman with a past medical history of multiple medical problems with right upper quadrant abdominal pain and acute cholelithiasis. Patient underwent laparoscopic cholecystectomy. Patient also had multiple other medical problems including nonsustained tachycardia and hypomagnesemia in the background of cardiac illness. Patient was monitored closely. Patient was seen by multiple consultants including Dr. Vu, Dr. Whitney and Dr. Conde. Care was coordinated. Please refer to the consultation and progress noted for further details. Patient improved significantly. On exam, vitals are stable. CARDIOVASCULAR: S1, S2. ABDOMEN: Soft, status post surgery. NERVOUS SYSTEM: No focal deficits. LUNGS: Clear to auscultation. DISCHARGE ADVICE: 1. Diet is cardiac diet. 2. Activity limited until followup. 3. Follow up with Dr. Hawthorne and primary physician in 1-2 days. 4. Follow up with Surgery and Cardiology as recommended. MEDICATIONS: Are as follows: 1. Aldactone 12.5 mg p.o. daily. 2. Aspirin 81 mg p.o. daily. 3. Coreg 6.25 mg p.o. b.i.d. 4. Digitek 125 mcg p.o. daily. 5. Fish oil 2 tablets p.o. daily. 6. Flonase nasal spray 1 spray daily. 7. Lasix 20 to 40 daily. 8. Levemir 40 units subcu q.h.s. 9. Magnesium 400 mg p.o. t.i.d. 10.Metformin 1000 mg p.o. b.i.d. 11.Milk thistle 150 daily. 12.saw palmetto daily. 13.Symbicort 160/4.5 two puffs b.i.d. 14.Tylenol p.r.n. 15.Viagra p.r.n. 16.Vitamin B12 five hundred mg p.o. daily. 17.Vitamin C 500 mg p.o. daily. 18.Vitamin B12 500 mcg. 19.Vitamin D3 one daily. 20.Zestril 5 mg p.o. b.i.d. 21.Zyloprim 300 mg daily p.r.n. 22.Zyrtec 10 mg p.o. daily. 23.[place] 5 mg q.6 p.r.n. 24.Protonix 40 mg p.o. daily. Once again the patient will be discharged in a stable condition with guarded prognosis. 1. 2. This is. MMANGYL / IJN: [id number] / MTDGabi
--- NOTE | 2019-05-24 14:19 | P.PN ---
Subjective Progress Note Date: 05/24/19 CHIEF COMPLAINT: abdominal pain HISTORY OF PRESENT ILLNESS: patient is status post laparoscopic cholecystectomy. Postop day #2. Patient reports his pain is tolerable. Tolerating diet. No nausea or vomiting. Cleared by cardiology for discharge. PHYSICAL EXAM: VITAL SIGNS: Reviewed. GENERAL: Well-developed in no acute distress. HEENT: No sclera icterus. Extraocular movements grossly intact. Moist buccal mucosa. Head is atraumatic, normocephalic. ABDOMEN: Soft. Nondistended. appropriate surgical tenderness. Laparoscopic incision sites clean dry and intact without drainage or signs of infection. NEUROLOGIC: Alert and oriented. Cranial nerves II through XII grossly intact. ASSESSMENT: 1. Cholecystitis, status post cholecystectomy PLAN: Continue current diet. Stable for discharge home today. Will defer to medicine. Follow up outpatient with Dr. Whitney. Nurse practitioner note has been reviewed by physician. Signing provider agrees with the documented findings, assessment, and plan of care. Objective - Vital Signs Vital signs: Vital Signs Temp 97.7 F 05/24/19 11:36 Pulse 73 05/24/19 11:36 Resp 18 05/24/19 11:36 BP 100/67 05/24/19 11:36 Pulse Ox 97 05/24/19 11:36 Intake & Output 05/23/19 05/24/19 05/24/19 18:59 06:59 18:59 Intake Total 1040 790 Balance 1040 790 Weight 93 kg Intake: Intake, IV Titration 460 70 Amount Magnesium Sulfate-D5w Pmx 300 1 gm In Dextrose/Water 1 100ml.bag @ 100 mls/hr IVPB Q1H [facility] Rx#: [id number] Sodium Chloride 0.9% 500 160 70 ml 500 ml @ 20 mls/hr IV .Q24H [facility] Rx#:[id number] Oral 580 720 Other: Voiding Method Toilet # Voids 2 3 # Bowel Movements 2 - Labs CBC & Chem 7: 05/23/19 09:02 05/24/19 07:46 Labs: Abnormal Lab Results - Last 24 Hours (Table) 05/23/19 05/23/19 05/24/19 Range/Units 17:00 20:24 06:43 Chloride (98-107) mmol/L Carbon Dioxide (22-30) mmol/L Glucose (74-99) mg/dL POC Glucose (mg/dL) 118 H 165 H 108 H (75-99) mg/dL 05/24/19 05/24/19 Range/Units 07:46 11:07 Chloride 97 L (98-107) mmol/L Carbon Dioxide 31 H (22-30) mmol/L Glucose 127 H (74-99) mg/dL POC Glucose (mg/dL) 193 H (75-99) mg/dL
== END 2019-05-24 14:10 | disposition home or self-care (01) | DRG 417 ==
LOC: EC 12:25 → 3NMEDONC 15:53 → OBSVTOIN 05-21 09:59
PROVIDERS: ADMIT Hospitalist; ATTEND Hospitalist
PROC: 0FT44ZZ Resection of Gallbladder, Percutaneous Endoscopic Approach (ICD-10-PCS; principal; 2019-05-22 10:20)
DX: K80.12 Calculus of gallbladder with acute and chronic cholecystitis without obstruction (principal); N17.0 Acute kidney failure with tubular necrosis; I42.9 Cardiomyopathy, unspecified; I47.2 Ventricular tachycardia; I50.22 Chronic systolic (congestive) heart failure; D69.6 Thrombocytopenia, unspecified; E11.9 Type 2 diabetes mellitus without complications; E83.42 Hypomagnesemia; I11.0 Hypertensive heart disease with heart failure; I27.20 Pulmonary hypertension, unspecified; I48.91 Unspecified atrial fibrillation; I49.3 Ventricular premature depolarization; K86.89 Other specified diseases of pancreas; M10.9 Gout, unspecified; M19.90 Unspecified osteoarthritis, unspecified site; Z79.4 Long term (current) use of insulin; Z79.51 Long term (current) use of inhaled steroids; Z79.82 Long term (current) use of aspirin; Z79.899 Other long term (current) drug therapy; Z82.49 Family history of ischemic heart disease and other diseases of the circulatory system; Z82.5 Family history of asthma and other chronic lower respiratory diseases; Z83.3 Family history of diabetes mellitus; Z87.891 Personal history of nicotine dependence; Z95.810 Presence of automatic (implantable) cardiac defibrillator; I95.9 Hypotension, unspecified; Z88.8 Allergy status to other drugs, medicaments and biological substances
CPT/HCPCS: 36415; 71045; 71046; 71250; 74160; 74176; 76705; 80048; 80053; 81001; 82150; 83690; 83735; 83880; 84132; 85025; 88304; 93005; 93306; 94640; 96361; 96374; 96375; 99285

== ENCOUNTER 2022-03-15 17:59 | Emergency (ER) | payer MEDICARE ==
[2022-03-15 18:06] VITALS: TEMP 97.7
[2022-03-15] MEDS ORDERED: TRANEXAMIC ACID 1,000 MG/10 ML VIAL MISCELLANE ONE (18:34)
[2022-03-15] MEDS ORDERED: OXYMETAZOLINE 0.05% NASL SPRAY 1 SPRAY BOTTLE NASAL STA (18:34)
[2022-03-15] MEDS ORDERED: BACITRACIN OINT 1 EACH PACKET TOPICAL ONE (18:35)
[2022-03-15] MEDS ORDERED: METOCLOPRAMIDE 10 MG TAB PO STA (19:12)
[2022-03-15 19:37] LABS: Anisocytosis Slight; Basophils # (A) 0.1 k/uL (0-0.2); Basophils % (A) 1 %; Eosinophils # (A) 0.1 k/uL (0-0.7); Eosinophils % (A) 2 %; HCT 35.2 % (39.0-53.0); HGB 11.4 gm/dL (13.0-17.5); Hypochromasia Slight; Lymphocytes # (A) 1.4 k/uL (1.0-4.8); Lymphocytes % (A) 30 %; MCH 27.9 pg (25.0-35.0); MCHC 32.5 g/dL (31.0-37.0); Mean Platelet Volume 8.2; Monocytes # (A) 0.1 k/uL (0-1.0); Monocytes % (A) 2 %; Neutrophils # (A) 2.9 k/uL (1.3-7.7); Neutrophils % (A) 63 %; Platelet Count 265 k/uL (150-450); RBC 4.09 m/uL (4.30-5.90); RDW 17.2 % (11.5-15.5); WBC 4.6 k/uL (3.8-10.6)
[2022-03-15] MEDS ORDERED: SILVER NITRATE APPLICATOR 1 EACH STICK..EA. TOPICAL STA (19:46)
--- NOTE | 2022-03-15 20:53 | ED ---
General Adult HPI - General Chief complaint: ENT Stated complaint: epistaxis Source: patient Mode of arrival: ambulatory Limitations: no limitations - History of Present Illness Initial comments: 71-year-old male with past medical history of A. fib, heart failure with LVAD on Coumadin presents to the emergency department with epistaxis. He states that one hour prior to hospital arrival he began having epistaxis. Reports that his nose has been bleeding on and off for the past several days. He was told by his oncologist to use Afrin. Reports that they have been using this and it usually works. Today the patient could not get his nose is stopped bleeding and therefore came into the emergency room for evaluation. [place] as if he lost a considerable amount of blood and therefore requesting laboratory testing. He denies any trauma. No other alleviating, precipitating or modifying factors - Related Data Home Medications Medication Instructions Recorded Confirmed Ascorbic Acid [Vitamin C] 500 mg PO DAILY 09/30/17 05/19/19 Aspirin 81 mg PO DAILY 09/30/17 05/19/19 Cyanocobalamin (Vitamin B-12) 1,000 mcg PO DAILY 09/30/17 05/19/19 [Vitamin B-12] Digoxin [Digitek] 125 mcg PO DAILY 09/30/17 05/19/19 Insulin Detemir [Levemir Flextouch 40 units SQ HS 09/30/17 05/19/19 Pen] [place]-3S/Dha/Epa/Fish Oil [Fish 2 cap PO DAILY 09/30/17 05/19/19 Oil 1,000 mg Softgel] Sildenafil Citrate [Viagra] 100 mg PO ONCE PRN 09/30/17 05/19/19 Spironolactone [Aldactone] 12.5 mg PO DAILY 09/30/17 05/19/19 allopurinoL [Zyloprim] 300 mg PO DAILY PRN 09/30/17 05/19/19 Vitamin D3(Unknown Dose) 1 tab PO DAILY 06/20/18 05/19/19 carvediloL [Coreg] 6.25 mg PO BID 06/20/18 05/19/19 lisinopriL [Zestril] 5 mg PO BID 06/20/18 05/19/19 Acetaminophen Tab [Tylenol] 1,000 mg PO Q6H PRN 04/28/19 05/19/19 Albuterol Inhaler [Ventolin Hfa 2 puff INHALATION RT-QID PRN 04/28/19 05/19/19 Inhaler] Budesonide/Formoterol Fumarate 2 puff INHALATION RT-BID 04/28/19 05/19/19 [Symbicort 160-4.5 Mcg Inhaler] Cetirizine HCl [Zyrtec] 10 mg PO DAILY 04/28/19 05/19/19 Fluticasone Nasal [place] [Flonase 1 spr EA NOSTRIL DAILY 04/28/19 05/19/19 Nasal [place]] Furosemide [Lasix] 20 - 40 mg PO DAILY 04/28/19 05/19/19 Milk Thistle 150 mg PO DAILY 04/28/19 05/19/19 Mason-3 Fatty Acids/Fish Oil [Fish 3 cap PO HS 04/28/19 05/19/19 Oil 1,000 mg Softgel] [place] 500 mg PO DAILY 04/28/19 05/19/19 metFORMIN HCL [Glucophage] 1,000 mg PO BID 04/28/19 05/19/19 Previous Rx's Medication Instructions Recorded Hydrocodone/Acetaminophen [[place] 1 tab PO Q6HR PRN 3 Days #12 tab 05/24/19 5-325] Magnesium Oxide [Mag-Ox] 400 mg PO BID #120 tab 05/24/19 Pantoprazole [Protonix] 40 mg PO DAILY #30 tablet. 05/24/19 Allergies Allergy/AdvReac Type Severity Reaction Status Date / Time Pfktcwb-EIF-GgE Reductase AdvReac MUSCLE PAIN Verified 03/15/22 18:06 Inhibitor [Ltpbgte-Jci-Auu Reductase Inhibitor] Review of Systems ROS Statement: Those systems with pertinent positive or pertinent negative responses have been documented in the HPI. ROS Other: All systems not noted in ROS Statement are negative. Past Medical History Past Medical History: Atrial Fibrillation, Heart Failure, Diabetes Mellitus, Osteoarthritis (OA) Additional Past Medical History / Comment(s): CARDIOMYOPATHY, GOUT, AICD/PPM- last implantation 2009 History of Any Multi-Drug Resistant Organisms: None Reported Past Surgical History: Heart Catheterization, Orthopedic Surgery, Pacemaker Additional Past Surgical History / Comment(s): LEFT ANKLE, LEFT WRIST, AICD/PPM PLACEMENT, epidural shots in neck Past Anesthesia/Blood Transfusion Reactions: No Reported Reaction Additional Past Anesthesia/Blood Transfusion Reaction / Comment(s): "Spinal given and did not work with my ankle surgery" Type of Cardiac Device: Permanent Pacemaker, AICD Device Placement Date:: 2009 Past Psychological History: No Psychological Hx Reported Smoking Status: Former smoker Past Alcohol Use History: Occasional Past Drug Use History: None Reported - Past Family History Father Family Medical History: AFIB, AICD/Pacemaker, Congestive Heart Failure (CHF), COPD, Diabetes Mellitus, Hypertension, Pneumonia Mother Family Medical History: Congestive Heart Failure (CHF) General Exam Limitations: no limitations Course Vital Signs 03/15/22 03/15/22 18:00 21:06 Temperature 97.7 F Pulse Rate 48 L 65 Respiratory 16 18 Rate Blood Pressure 114/91 114/89 O2 Sat by Pulse 96 95 Oximetry Medical Decision Making - Medical Decision Making Upon arrival patient was placed into room 21. A thorough history and physical exam was performed. I did use Afrin and [place] today however the patient does not have any improvement in his bleeding. I then attempted cautery which is unsuccessful. Discussed with patient that I would need to pack his nose for which she understood and was agreeable. An 8 cm Miracil was placed in the patient's right knee air. He is watched in the emergency department for 15 additional minutes without any bleeding. Patient will be discharged home. He already takes antibiotics daily. He is to follow-up with Dr. Collazo for packing removal in 48-72 hours. Return to the emergency room for any new or worsening symptoms. Patient agrees treatment plan was discharged home in stable condition - Lab Data Result diagrams: 03/15/22 19:24 Lab Results 03/15/22 03/15/22 Range/Units 19:24 21:00 WBC 4.6 (3.8-10.6) k/uL RBC 4.09 L (4.30-5.90) m/uL Hgb 11.4 L (13.0-17.5) gm/dL Hct 35.2 L (39.0-53.0) % MCV 86.0 (80.0-100.0) fL MCH 27.9 (25.0-35.0) pg MCHC 32.5 (31.0-37.0) g/dL RDW 17.2 H (11.5-15.5) % Plt Count 265 (150-450) k/uL MPV 8.2 Neutrophils % 63 % Lymphocytes % 30 % Monocytes % 2 % Eosinophils % 2 % Basophils % 1 % Neutrophils # 2.9 (1.3-7.7) k/uL Lymphocytes # 1.4 (1.0-4.8) k/uL Monocytes # 0.1 (0-1.0) k/uL Eosinophils # 0.1 (0-0.7) k/uL Basophils # 0.1 (0-0.2) k/uL Hypochromasia Slight Anisocytosis Slight PT 24.8 H (9.0-12.0) sec INR 2.5 H (<1.2) Disposition Clinical Impression: Epistaxis, Bleeding on Coumadin Disposition: HOME SELF-CARE Condition: Stable Instructions (If sedation given, give patient instructions): Nosebleed (ED) Additional Instructions: Your nasal packing should be removed in 48-72 hours. Please follow-up with the ENT to have this removed. Continue taking your coumadin as directed. Return to the emergency room for any new or worsening symptoms Is patient prescribed a controlled substance at d/c from ED?: No Referrals: Km Hawthorne DO [Primary Care Provider] - 1-2 days Wellington Collazo MD [STAFF PHYSICIAN] - 1-2 days Time of Disposition: 20:52
[2022-03-15 21:09] VITALS: BP 114/89; PULSE 65; RESP 18
[2022-03-15 21:14] LABS: INR 2.5 (<1.2); Prothrombin Time 24.8 sec (9.0-12.0)
== END 2022-03-15 21:13 | disposition home or self-care (01) ==
LOC: EC 17:59
DX: R04.0 Epistaxis (principal); E11.9 Type 2 diabetes mellitus without complications; I50.9 Heart failure, unspecified; I48.91 Unspecified atrial fibrillation; M19.90 Unspecified osteoarthritis, unspecified site; Z87.891 Personal history of nicotine dependence; M10.9 Gout, unspecified; Z79.4 Long term (current) use of insulin; Z79.84 Long term (current) use of oral hypoglycemic drugs; Z79.82 Long term (current) use of aspirin; Z79.51 Long term (current) use of inhaled steroids; Z79.899 Other long term (current) drug therapy
CPT/HCPCS: 30903; 36415; 85025; 85610; 99283

== ENCOUNTER 2022-04-08 10:51 | Emergency (ER) | payer MEDICARE ==
[2022-04-08] MEDS ORDERED: SODIUM CHLORIDE 0.9% 500 ML 500 ML IV STA (11:12)
[2022-04-08] MEDS ORDERED: DILTIAZEM 5 MG/ML 5 ML VIAL IVP STA (11:12)
[2022-04-08] MEDS ORDERED: DILTIAZEM DRIP BOLUS FROM BAG 1 MG SOLN IV STA (11:13)
[2022-04-08] MEDS ORDERED: DILTIAZEM 125 MG in SODIUM CHLORIDE 0.9% 100 ML IV SCH (11:15)
--- NOTE | 2022-04-08 11:31 | ED ---
Nausea/Vomiting/Diarrhea HPI - General Chief complaint: Nausea/Vomiting/Diarrhea Stated complaint: NVD/Weakness Time Seen by Provider: 04/08/22 10:51 Source: patient, family, EMS, RN notes reviewed, old records reviewed Mode of arrival: EMS - History of Present Illness Initial comments: 71-year-old male with a history of diabetes history of prostate cancer with recent chemotherapy who also has a left ventricular assist device who presents by EMS with complaints of nausea and vomiting for past 12 hours with inability take his medication due to the nausea vomiting was found by paramedics have atrial fibrillation with a rapid ventricular response rate of about 160 he was hypotensive 84/62 when he did respond to a 300 mL bolus of IV fluids with improvement of pressure. No overt chest pain patient at this time is a somewhat poor historian. MD complaint: nausea, vomiting, other - Related Data Home Medications Medication Instructions Recorded Confirmed Aspirin 81 mg PO DAILY 09/30/17 04/08/22 Digoxin [Digitek] 125 mcg PO DAILY 09/30/17 04/08/22 Insulin Detemir [Levemir Flextouch 36 units SQ HS 09/30/17 04/08/22 Pen] allopurinoL [Zyloprim] 300 mg PO DAILY 09/30/17 04/08/22 Cetirizine HCl [Zyrtec] 10 mg PO DAILY 04/08/22 04/08/22 Cholecalciferol (Vitamin D3) 75 mcg PO DAILY 04/08/22 04/08/22 [Vitamin D3 (3000 Iu)] Colchicine [Colcrys] 0.6 mg PO DAILY PRN 04/08/22 04/08/22 Dapagliflozin Propanediol [Farxiga] 10 mg PO DAILY 04/08/22 04/08/22 Doxycycline Hyclate 100 mg PO BID 04/08/22 04/08/22 Furosemide [Lasix] 20 mg PO DAILY 04/08/22 04/08/22 Glucosamine HCl/Chondroitin [place] 1 cap PO QID 04/08/22 04/08/22 [Glucosamine-Chondroitin Cap] Hydrocodone/Acetaminophen [[place] 1 tab PO Q8H PRN 04/08/22 04/08/22 5-325] Ipratropium [place] 0.06%Nasal 2 spray EA NOSTRIL QID PRN 04/08/22 04/08/22 [Atrovent Nasal 0.06%] Lidocaine-Prilocaine Cream [[place] 1 applic TOPICAL DIRECTED 04/08/22 04/08/22 Cream 2.5%/2.5%] Magnesium Oxide [Mag-Ox] 600 mg PO TID 04/08/22 04/08/22 Multivitamins, Thera [Multivitamin 1 tab PO DAILY 04/08/22 04/08/22 (formulary)] NIFEdipine [NIFEdipine ER] 30 mg PO HS 04/08/22 04/08/22 Ondansetron [Zofran] 4 mg PO Q6H PRN 04/08/22 04/08/22 Potassium Chloride [Klor-Con M20] 20 meq PO Q48H 04/08/22 04/08/22 Psyllium Husk [Metamucil] 0.4 gm PO DAILY 04/08/22 04/08/22 Warfarin [Coumadin] 7.5 mg PO SUWE 04/08/22 04/08/22 Warfarin [Coumadin] 10 mg PO MOTUWEFRSA 04/08/22 04/08/22 captopriL [Captopril] 12.5 mg PO TID 04/08/22 04/08/22 metFORMIN HCL ER [Glucophage XR] 500 mg PO DAILY 04/08/22 04/08/22 Allergies Allergy/AdvReac Type Severity Reaction Status Date / Time [place]-CXV-EpX Reductase AdvReac MUSCLE PAIN Verified 04/08/22 13:36 Inhibitor [Ylolyrl-Vbw-Rbv Reductase Inhibitor] Review of Systems ROS Statement: Those systems with pertinent positive or pertinent negative responses have been documented in the HPI. ROS Other: All systems not noted in ROS Statement are negative. Past Medical History Past Medical History: Atrial Fibrillation, Heart Failure, Diabetes Mellitus, Osteoarthritis (OA) Additional Past Medical History / Comment(s): CARDIOMYOPATHY, GOUT, AICD/PPM- last implantation 2009 History of Any Multi-Drug Resistant Organisms: None Reported Past Surgical History: Heart Catheterization, Orthopedic Surgery, Pacemaker Additional Past Surgical History / Comment(s): LEFT ANKLE, LEFT WRIST, AICD/PPM PLACEMENT, epidural shots in neck Past Anesthesia/Blood Transfusion Reactions: No Reported Reaction Additional Past Anesthesia/Blood Transfusion Reaction / Comment(s): "Spinal g iven and did not work with my ankle surgery" Type of Cardiac Device: Permanent Pacemaker, AICD Device Placement Date:: 2009 Past Psychological History: No Psychological Hx Reported Smoking Status: Former smoker Past Alcohol Use History: Occasional Past Drug Use History: None Reported - Past Family History Father Family Medical History: AFIB, AICD/Pacemaker, Congestive Heart Failure (CHF), [place] PD, Diabetes Mellitus, Hypertension, Pneumonia Mother Family Medical History: Congestive Heart Failure (CHF) General Exam - General Exam Comments Initial Comments: This is a well-developed well-nourished awake alert lethargic male General appearance: alert, lethargic Head exam: Present: atraumatic, normocephalic, normal inspection Eye exam: Present: normal appearance, PERRL, EOMI. Absent: scleral icterus, conjunctival injection, periorbital swelling ENT exam: Present: normal exam, mucous membranes moist Neck exam: Present: normal inspection, full ROM, other. Absent: tenderness, meningismus, lymphadenopathy Respiratory exam: Present: decreased breath sounds (No stridor JVD or bruits). Absent: respiratory distress, wheezes, rales, rhonchi, stridor Cardiovascular Exam: Present: tachycardia, irregular rhythm. Absent: systolic murmur, diastolic murmur, rubs, gallop, clicks GI/Abdominal exam: Present: soft, normal bowel sounds. Absent: distended, tenderness, guarding, rebound, rigid Extremities exam: Present: normal inspection, full ROM, normal capillary refill. Absent: tenderness, pedal edema, joint swelling, calf tenderness Back exam: Present: normal inspection Neurological exam: Present: alert, oriented X3, CN II-XII intact Psychiatric exam: Present: normal affect, normal mood Skin exam: Present: warm, dry, intact, normal color. Absent: rash Course Vital Signs 04/08/22 04/08/22 04/08/22 10:56 11:07 12:27 Temperature 99.3 F 103.1 F H Pulse Rate 170 H 140 H Respiratory 18 18 Rate Blood Pressure 110/74 88/65 O2 Sat by Pulse 92 L 94 L Oximetry 04/08/22 13:21 Temperature 102.3 F H Pulse Rate Respiratory Rate Blood Pressure O2 Sat by Pulse Oximetry - Reevaluation(s) Reevaluation #1: 04/08/22 14:58 I did reevaluate patient on multiple occasions blood pressure has been issued he does seem responsive to fluids in addition Cardizem was started for control her rapid atrial fibrillation. Reevaluation #2: 04/08/22 14:58 Patient is saturating elevated lactic acid he also does have a left lower lobe infiltrate. Medical Decision Making - Medical Decision Making Patient does demonstrate evidence of rapid atrial fibrillation dehydration lactic acidosis and left lower lobe pneumonia. Patient has been initially given Rocephin daily placed on cefepime [facility] who is referred back to the [facility]. Patient be admitted with consultation by pulmonary medicine as well as Dr. Phan Addition to cardiology. - Lab Data Result diagrams: 04/08/22 10:56 04/08/22 10:56 Lab Results 04/08/22 04/08/22 04/08/22 Range/Units 10:56 10:56 10:56 WBC 12.2 H (3.8-10.6) k/uL RBC 3.63 L (4.30-5.90) m/uL Hgb 10.0 L (13.0-17.5) gm/dL Hct 32.3 L (39.0-53.0) % MCV 88.9 (80.0-100.0) fL MCH 27.6 (25.0-35.0) pg MCHC 31.1 (31.0-37.0) g/dL RDW 18.3 H (11.5-15.5) % Plt Count 447 (150-450) k/uL MPV 9.1 Neutrophils % 94 % Lymphocytes % 5 % Monocytes % 1 % Eosinophils % 0 % Basophils % 0 % Neutrophils # 11.5 H (1.3-7.7) k/uL Lymphocytes # 0.6 L (1.0-4.8) k/uL Monocytes # 0.1 (0-1.0) k/uL Eosinophils # 0.0 (0-0.7) k/uL Basophils # 0.0 (0-0.2) k/uL Hypochromasia Marked Anisocytosis Slight PT 26.8 H (9.0-12.0) sec INR 2.7 H (<1.2) APTT 29.7 (22.0-30.0) sec Sodium 133 L (137-145) mmol/L Potassium 4.8 (3.5-5.1) mmol/L Chloride 94 L (98-107) mmol/L Carbon Dioxide 24 (22-30) mmol/L Anion Gap 15 mmol/L BUN 31 H (9-20) mg/dL Creatinine 1.03 (0.66-1.25) mg/dL Est GFR (CKD-EPI)AfAm 85 (>60 ml/min/1.73 sqM) Est GFR (CKD-EPI)NonAf 74 (>60 ml/min/1.73 sqM) Glucose 143 H (74-99) mg/dL Lactic Ac Sepsis Rflx Plasma Lactic Acid [place] (0.7-2.0) mmol/L Calcium 9.3 (8.4-10.2) mg/dL Magnesium 1.8 (1.6-2.3) mg/dL Total Bilirubin 1.6 H (0.2-1.3) mg/dL AST 44 (17-59) U/L ALT 30 (4-49) U/L Alkaline Phosphatase 101 (38-126) U/L Troponin I (0.000-0.034) ng/mL Total Protein 6.3 (6.3-8.2) g/dL Albumin 3.9 (3.5-5.0) g/dL TSH 0.654 (0.465-4.680) mIU/L 04/08/22 04/08/22 04/08/22 Range/Units 10:56 10:56 11:49 WBC (3.8-10.6) k/uL RBC (4.30-5.90) m/uL Hgb (13.0-17.5) gm/dL Hct (39.0-53.0) % MCV (80.0-100.0) fL MCH (25.0-35.0) pg MCHC (31.0-37.0) g/dL RDW (11.5-15.5) % Plt Count (150-450) k/uL MPV Neutrophils % % Lymphocytes % % Monocytes % % Eosinophils % % Basophils % % Neutrophils # (1.3-7.7) k/uL Lymphocytes # (1.0-4.8) k/uL Monocytes # (0-1.0) k/uL Eosinophils # (0-0.7) k/uL Basophils # (0-0.2) k/uL Hypochromasia Anisocytosis PT (9.0-12.0) sec INR (<1.2) APTT (22.0-30.0) sec Sodium (137-145) mmol/L Potassium (3.5-5.1) mmol/L Chloride (98-107) mmol/L Carbon Dioxide (22-30) mmol/L Anion Gap mmol/L BUN (9-20) mg/dL Creatinine (0.66-1.25) mg/dL Est GFR (CKD-EPI)AfAm (>60 ml/min/1.73 sqM) Est GFR (CKD-EPI)NonAf (>60 ml/min/1.73 sqM) Glucose (74-99) mg/dL Lactic Ac Sepsis Rflx Y Plasma Lactic Acid [place] 6.8 H* (0.7-2.0) mmol/L Calcium (8.4-10.2) mg/dL Magnesium (1.6-2.3) mg/dL Total Bilirubin (0.2-1.3) mg/dL AST (17-59) U/L ALT (4-49) U/L Alkaline Phosphatase (38-126) U/L Troponin I 0.026 (0.000-0.034) ng/mL Total Protein (6.3-8.2) g/dL Albumin (3.5-5.0) g/dL TSH (0.465-4.680) mIU/L - EKG Data -: EKG Interpreted by Me EKG Comments: Rapid atrial fibrillation rate 138 QRS 102 QT since QTC 300/380 possible RVH old changes seen. Artifact present - Radiology Data Radiology results: report reviewed (Imaging reviewed as well as report evidence of left lower lobe infiltrate.), image reviewed Critical Care Time Critical Care Time: Yes Total Critical Care Time: 45 Critical Care Time: Critical care time includes initial presentation with history physical labs x- rays discussed with paramedics upon arrival multiple reevaluation the patient multiple discussions with the patient family discussion with the main physician admission orders documentation the above Disposition Clinical Impression: Left lower lobe pneumonia, Rapid atrial fibrillation, Lactic acidosis, Dehydration, Febrile illness, acute, Prostate cancer, History of left ventricular assist device (LVAD) Disposition: ADMITTED IP TO THIS [facility] Condition: Serious Referrals: Km Hawthorne DO [Primary Care Provider] - 1-2 days Decision Date: 04/08/22 Decision Time: 15:00
[2022-04-08 11:39] LABS: Anisocytosis Slight; Basophils % (A) 0 %; Eosinophils % (A) 0 %; HCT 32.3 % (39.0-53.0); Hypochromasia Marked; INR 2.7 (<1.2); Lymphocytes # (A) 0.6 k/uL (1.0-4.8); Lymphocytes % (A) 5 %; MCH 27.6 pg (25.0-35.0); MCHC 31.1 g/dL (31.0-37.0); MCV 88.9 fL (80.0-100.0); Mean Platelet Volume 9.1; Monocytes # (A) 0.1 k/uL (0-1.0); Monocytes % (A) 1 %; Neutrophils # (A) 11.5 k/uL (1.3-7.7); Neutrophils % (A) 94 %; Partial Thromboplastin Time 29.7 sec (22.0-30.0); Platelet Count 447 k/uL (150-450); Prothrombin Time 26.8 sec (9.0-12.0); RBC 3.63 m/uL (4.30-5.90); RDW 18.3 % (11.5-15.5); WBC 12.2 k/uL (3.8-10.6)
--- NOTE | 2022-04-08 11:43 | XR ---
EXAMINATION TYPE: XR chest 1V portable DATE OF EXAM: 04/08/2022 COMPARISON: NONE HISTORY: Dysrhythmia TECHNIQUE: Single frontal view of the chest is obtained. FINDINGS: Mediport and cardiac device noted with postoperative change and cardiac megaly. Left lower lobe infiltrate and small effusion. No pneumothorax or overt failure. Elevated left hemidiaphragm. IMPRESSION: Left lower lobe infiltrate and small effusion.
[2022-04-08 11:55] LABS: Albumin 3.9 g/dL (3.5-5.0); Calcium 9.3 mg/dL (8.4-10.2); Magnesium 1.8 mg/dL (1.6-2.3); Potassium 4.8 mmol/L (3.5-5.1); Total Bilirubin 1.6 mg/dL (0.2-1.3); Total Protein 6.3 g/dL (6.3-8.2)
[2022-04-08] MEDS ORDERED: ACETAMINOPHEN IV (For NPO) 1,000 MG in EMPTY BAG 1 BAG IVPB STA (12:27)
[2022-04-08] MEDS ORDERED: cefTRIAXone IN SWFI 1,000 MG/10 ML SYRINGE IVP STA (12:28)
[2022-04-08] MEDS ORDERED: SODIUM CHLORIDE 0.9% 1,000 ML IV STA ×2 (13:56→15:56)
[2022-04-08] MEDS ORDERED: CEFEPIME 2 GM in SODIUM CHLORIDE 0.9% 100 ML IVPB STA (15:01)
[2022-04-08] MEDS ORDERED: PNEUMONIA PROTOCOL UTILIZED 1 EACH MISC PO PRN (15:05)
[2022-04-08] MEDS ORDERED: SODIUM CHLORIDE 0.9% 1,000 ML IV SCH (15:15)
--- NOTE | 2022-04-08 15:23 | P.PN ---
Progress Note - Text Progress Note Date: 04/08/22 Spoke with the ER physician regarding this patient. Unfortunately, our nursing floor on [address] and ICU does not handle patients with LVAD devices. I discussed that this means the patient will have to be transferred to a tertiary care center for a higher level of care. I touch base with bed management and canceled placement and admit orders.
[2022-04-08] MEDS ORDERED: VANCOMYCIN IV PER PHARMACY 1 EACH MISC MISCELLANE PRN (15:55)
[2022-04-08] MEDS ORDERED: CEFEPIME 2 GM in SODIUM CHLORIDE 0.9% 100 ML IVPB SCH (16:00)
[2022-04-08] MEDS ORDERED: VANCOMYCIN 1,250 MG in SODIUM CHLORIDE 0.9% 250 ML IVPB STA (16:00)
--- NOTE | 2022-04-08 16:02 | ED ---
Medical Decision Making - Lab Data Result diagrams: 04/08/22 10:56 04/08/22 10:56 <BryantJerome - Last Filed: 04/08/22 15:57> - Lab Data Result diagrams: 04/08/22 10:56 04/08/22 10:56 <Km Haywood - Last Filed: 04/08/22 17:35> - Medical Decision Making The original plan was to admit the patient here for facility is not able to take care of LVAD patients. Patient did have is elevated place at [facility] in [place] did discuss the case with the transfer team who stated they could take the patient in transfer however Dr. Elliott the medical doctor the day is unavailable at this time currently we're pending a call back. The case or is it was discussed with Dr. Masterson. Dr. Haywood will be handling the remainder the transfer. (Jerome Hurtado) Patient was signed out to me pending transfer. Patient is a history of an LVAD. Presents with multiple days of nausea and vomiting. Diagnosed with pneumonia, atrial fibrillation with RVR by the prior physician, but due to the elevated lactic acid, as well as having 2 out of 4 Sirs criteria I I do believe that the patient has concern for sepsis. Patient will be given vancomycin in addition to the IV cefepime. Blood cultures are pending at this time. Initial lactic acid is 6.8, following 3 L bolus lactic acid is 1.5. Patient remained stable. Blood pressure is on Cardizem drip are somewhat soft, systolics ranging anywhere from 70-100. Due to his history of an LVAD, cuff pressures are inaccurate. Doppler cuff pressure was obtained by myself was found to be approximately 70-75. We'll continue to monitor. Patient otherwise is feeling improved at this time.Tissue perfusion exam was obtained by myself as documented. I did speak with the transfer line at [facility]. I spoke with Dr. Bland who is accepting the patient. He recommended the above management, including stopping the Cardizem drip at this time, obtaining a Doppler blood pressure, which the patient states is typically for him anywhere between 70s and 75 and 90. He was otherwise in agreement with the plan. Heart rate is improved at this time as well. He remains in atrial fibrillation. Patient will be tra nsferred to [facility] in serious condition. Patient was in agreement this plan. (Km Haywood) - Lab Data Lab Results 04/08/22 04/08/22 04/08/22 Range/Units 10:56 10:56 10:56 WBC 12.2 H (3.8-10.6) k/uL RBC 3.63 L (4.30-5.90) m/uL Hgb 10.0 L (13.0-17.5) gm/dL Hct 32.3 L (39.0-53.0) % MCV 88.9 (80.0-100.0) fL MCH 27.6 (25.0-35.0) pg MCHC 31.1 (31.0-37.0) g/dL RDW 18.3 H (11.5-15.5) % Plt Count 447 (150-450) k/uL MPV 9.1 Neutrophils % 94 % Lymphocytes % 5 % Monocytes % 1 % Eosinophils % 0 % Basophils % 0 % Neutrophils # 11.5 H (1.3-7.7) k/uL Lymphocytes # 0.6 L (1.0-4.8) k/uL Monocytes # 0.1 (0-1.0) k/uL Eosinophils # 0.0 (0-0.7) k/uL Basophils # 0.0 (0-0.2) k/uL Hypochromasia Marked Anisocytosis Slight PT 26.8 H (9.0-12.0) sec INR 2.7 H (<1.2) APTT 29.7 (22.0-30.0) sec Sodium 133 L (137-145) mmol/L Potassium 4.8 (3.5-5.1) mmol/L Chloride 94 L (98-107) mmol/L Carbon Dioxide 24 (22-30) mmol/L Anion Gap 15 mmol/L BUN 31 H (9-20) mg/dL Creatinine 1.03 (0.66-1.25) mg/dL Est GFR (CKD-EPI)AfAm 85 (>60 ml/min/1.73 sqM) Est GFR (CKD-EPI)NonAf 74 (>60 ml/min/1.73 sqM) Glucose 143 H (74-99) mg/dL Lactic Ac Sepsis Rflx Plasma Lactic Acid Jerome (0.7-2.0) mmol/L Calcium 9.3 (8.4-10.2) mg/dL Magnesium 1.8 (1.6-2.3) mg/dL Total Bilirubin 1.6 H (0.2-1.3) mg/dL AST 44 (17-59) U/L ALT 30 (4-49) U/L Alkaline Phosphatase 101 (38-126) U/L Troponin I (0.000-0.034) ng/mL Total Protein 6.3 (6.3-8.2) g/dL Albumin 3.9 (3.5-5.0) g/dL TSH 0.654 (0.465-4.680) mIU/L Urine Color Urine Appearance (Clear) Urine pH (5.0-8.0) Ur Specific [place] (1.001-1.035) Urine Protein (Negative) Urine Glucose (UA) (Negative) Urine Ketones (Negative) Urine Blood (Negative) Urine Nitrite (Negative) Urine Bilirubin (Negative) Urine Urobilinogen (<2.0) mg/dL Ur Leukocyte Esterase (Negative) Urine RBC (0-5) /hpf Urine WBC (0-5) /hpf Ur Squamous Epith Cells (0-4) /hpf Ur Renal Epithelial Cell (0) /hpf Urine Bacteria (None) /hpf Urine Mucus (None) /hpf Coronavirus (PCR) (Not Detectd) 04/08/22 04/08/22 04/08/22 Range/Units 10:56 10:56 11:49 WBC (3.8-10.6) k/uL RBC (4.30-5.90) m/uL Hgb (13.0-17.5) gm/dL Hct (39.0-53.0) % MCV (80.0-100.0) fL MCH (25.0-35.0) pg MCHC (31.0-37.0) g/dL RDW (11.5-15.5) % Plt Count (150-450) k/uL MPV Neutrophils % % Lymphocytes % % Monocytes % % Eosinophils % % Basophils % % Neutrophils # (1.3-7.7) k/uL Lymphocytes # (1.0-4.8) k/uL Monocytes # (0-1.0) k/uL Eosinophils # (0-0.7) k/uL Basophils # (0-0.2) k/uL Hypochromasia Anisocytosis PT (9.0-12.0) sec INR (<1.2) APTT (22.0-30.0) sec Sodium (137-145) mmol/L Potassium (3.5-5.1) mmol/L Chloride (98-107) mmol/L Carbon Dioxide (22-30) mmol/L Anion Gap mmol/L BUN (9-20) mg/dL Creatinine (0.66-1.25) mg/dL Est GFR (CKD-EPI)AfAm (>60 ml/min/1.73 sqM) Est GFR (CKD-EPI)NonAf (>60 ml/min/1.73 sqM) Glucose (74-99) mg/dL Lactic Ac Sepsis Rflx Y Plasma Lactic Acid Jerome 6.8 H* (0.7-2.0) mmol/L Calcium (8.4-10.2) mg/dL Magnesium (1.6-2.3) mg/dL Total Bilirubin (0.2-1.3) mg/dL AST (17-59) U/L ALT (4-49) U/L Alkaline Phosphatase (38-126) U/L Troponin I 0.026 (0.000-0.034) ng/mL Total Protein (6.3-8.2) g/dL Albumin (3.5-5.0) g/dL TSH (0.465-4.680) mIU/L Urine Color Urine Appearance (Clear) Urine pH (5.0-8.0) Ur Specific [place] (1.001-1.035) Urine Protein (Negative) Urine Glucose (UA) (Negative) Urine Ketones (Negative) Urine Blood (Negative) Urine Nitrite (Negative) Urine Bilirubin (Negative) Urine Urobilinogen (<2.0) mg/dL Ur Leukocyte Esterase (Negative) Urine RBC (0-5) /hpf Urine WBC (0-5) /hpf Ur Squamous Epith Cells (0-4) /hpf Ur Renal Epithelial Cell (0) /hpf Urine Bacteria (None) /hpf Urine Mucus (None) /hpf Coronavirus (PCR) (Not Detectd) 04/08/22 04/08/22 04/08/22 Range/Units 15:08 16:10 16:38 WBC (3.8-10.6) k/uL RBC (4.30-5.90) m/uL Hgb (13.0-17.5) gm/dL Hct (39.0-53.0) % MCV (80.0-100.0) fL MCH (25.0-35.0) pg MCHC (31.0-37.0) g/dL RDW (11.5-15.5) % Plt Count (150-450) k/uL MPV Neutrophils % % Lymphocytes % % Monocytes % % Eosinophils % % Basophils % % Neutrophils # (1.3-7.7) k/uL Lymphocytes # (1.0-4.8) k/uL Monocytes # (0-1.0) k/uL Eosinophils # (0-0.7) k/uL Basophils # (0-0.2) k/uL Hypochromasia Anisocytosis PT (9.0-12.0) sec INR (<1.2) APTT (22.0-30.0) sec Sodium (137-145) mmol/L Potassium (3.5-5.1) mmol/L Chloride (98-107) mmol/L Carbon Dioxide (22-30) mmol/L Anion Gap mmol/L BUN (9-20) mg/dL Creatinine (0.66-1.25) mg/dL Est GFR (CKD-EPI)AfAm (>60 ml/min/1.73 sqM) Est GFR (CKD-EPI)NonAf (>60 ml/min/1.73 sqM) Glucose (74-99) mg/dL Lactic Ac Sepsis Rflx Plasma Lactic Acid Jerome 1.5 (0.7-2.0) mmol/L Calcium (8.4-10.2) mg/dL Magnesium (1.6-2.3) mg/dL Total Bilirubin (0.2-1.3) mg/dL AST (17-59) U/L ALT (4-49) U/L Alkaline Phosphatase (38-126) U/L Troponin I (0.000-0.034) ng/mL Total Protein (6.3-8.2) g/dL Albumin (3.5-5.0) g/dL TSH (0.465-4.680) mIU/L Urine Color Yellow Urine Appearance Clear (Clear) Urine pH 5.5 (5.0-8.0) Ur Specific [place] 1.021 (1.001-1.035) Urine Protein 1+ H (Negative) Urine Glucose (UA) 4+ H (Negative) Urine Ketones Negative (Negative) Urine Blood Small H (Negative) Urine Nitrite Negative (Negative) Urine Bilirubin Negative (Negative) Urine Urobilinogen <2.0 (<2.0) mg/dL Ur Leukocyte Esterase Negative (Negative) Urine RBC 5 (0-5) /hpf Urine WBC 5 (0-5) /hpf Ur Squamous Epith Cells 1 (0-4) /hpf Ur Renal Epithelial Cell 10 (0) /hpf Urine Bacteria Rare H (None) /hpf Urine Mucus Few H (None) /hpf Coronavirus (PCR) Not Detected (Not Detectd) Disposition Decision Date: 04/08/22 Decision Time: 15:00 <Jerome Hurtado - Last Filed: 04/08/22 15:57> Time of Disposition: 17:30 - Out of Hospital Transfer - Req. Specs Out of Hospital Transfer - Requested Specifics: Other Emergency Center (Transfer to higher level of care for sepsis, afib, and LVAD.) <Km Haywood - Last Filed: 04/08/22 17:35> Clinical Impression: Left lower lobe pneumonia, Rapid atrial fibrillation, Lactic acidosis, Dehydration, Febrile illness, acute, Prostate cancer, History of left vent ricular assist device (LVAD), Sepsis Disposition: TRANSFER TO PSYCH HOSP/UNIT Condition: Serious Referrals: Km Hawthorne DO [Primary Care Provider] - 1-2 days Procedures - [place] Protocol (Time Out) Nurse: Socorro Moy <Jerome Hurtado - Last Filed: 04/08/22 15:57> - Sepsis Sepsis Focused Exam #1 Time Sepsis Criteria Met: 15:55 Sepsis Focused Exam Date: 04/08/22 Sepsis Focused Exam Time: 17:30 Sepsis Focused Exam Complete: Yes Vital Signs & RN Notes Reviewed: Yes Capillary Refill: < 2 Seconds: Fingers, Toes Peripheral Pulses: Normal: Radial (R), Radial (L) Skin Color: Normal for Patient Respiratory Exam: normal lung sounds Cardiovascular Exam: irregular rhythm <Km Haywood - Last Filed: 04/08/22 17:35>
[2022-04-08] MEDS ORDERED: MAGNESIUM SULFATE-D5W PMX 1 GM in DEXTROSE/WATER 1 100ML.BAG IVPB ONE (16:47)
[2022-04-08 17:31] LABS: Appearance,Urine Clear (Clear); Bacteria,Urine Rare /hpf; Bilirubin,Urine Negative (Negative); Blood,Urine Small (Negative); Color,Urine Yellow; Glucose,Urine (UA) 4+ (Negative); Ketones,Urine Negative (Negative); Leukocyte Esterase,Urine Negative (Negative); Mucus,Urine Few /hpf; Nitrite,Urine Negative (Negative); PH, Urine 5.5 (5.0-8.0); Protein,Urine 1+ (Negative); RBC,Urine 5 /hpf (0-5); Renal Epithelial Cells,Urine 10 /hpf (0); Specific Gravity,Urine 1.021 (1.001-1.035); Squamous Epithelial Cell,Urine 1 /hpf (0-4); Urobilinogen,Urine <2.0 mg/dL (<2.0); WBC,Urine 5 /hpf (0-5)
[2022-04-08 18:27] VITALS: BP 87/66; PULSE 87; RESP 16; TEMP 97.2
[2022-04-09] MEDS ORDERED: VANCOMYCIN 1,250 MG in SODIUM CHLORIDE 0.9% 250 ML IVPB SCH (05:00)
== END 2022-04-08 18:42 ==
LOC: EC 10:51 → 3SCARD 15:10 → UNDOADMIN 15:10 → EC 18:42
DX: J18.1 Lobar pneumonia, unspecified organism (principal); I48.91 Unspecified atrial fibrillation; E87.2 Acidosis; E86.0 Dehydration; R50.81 Fever presenting with conditions classified elsewhere; C61 Malignant neoplasm of prostate; Z95.811 Presence of heart assist device; E11.9 Type 2 diabetes mellitus without complications; M19.90 Unspecified osteoarthritis, unspecified site; I50.9 Heart failure, unspecified; Z87.891 Personal history of nicotine dependence; Z88.8 Allergy status to other drugs, medicaments and biological substances; Z79.82 Long term (current) use of aspirin; Z79.899 Other long term (current) drug therapy
CPT/HCPCS: 99285; 96365; 96366 ×4; 96368; 96375 ×2; 96361 ×2; 36415; 93005; 80053; 83605; 83735; 84443; 84484; 85025; 85610; 85730; 81001; 87040; 87635; 71045; J3370; J0696; J0692; J3475; J0131